=== PATIENT | male | born 1970 | race Caucasian/White ===

== ENCOUNTER 2019-09-23 08:55 | Outpatient (CLI) | payer MEDICARE, MEDICAID, SELFPAY ==
[2019-09-23 10:24] LABS: Hematocrit 40.2 % (42.0-52.0); Mean Corpuscular HGB Conc 32.3 g/dL (30.0-36.0); Mean Corpuscular Hemoglobin 31.4 pg (28.0-34.0); Mean Corpuscular Volume 97.1 fL (80-94); Platelet Count 187 10^3/cmm (130-400); Red Blood Count 4.14 10^6/uL (4.1-5.3); Red Cell Distribution Width 13.2 % (12.1-15.1); White Blood Count 8.3 10^3/uL (4.0-10.0)
[2019-09-23 10:38] LABS: Alanine Aminotransferase 34 U/L (0-41); Albumin Level 5.1 g/dL (3.5-5.2); Alkaline Phosphatase 55 IU/L (40-130); Anion Gap 15.1 (5-19); Aspartate Amino Transferase 24 U/L (0-40); Blood Urea Nitrogen 17 mg/dL (6-20); Carbon Dioxide 21 mmol/L (22-29); Chloride 106 mmol/L (98-107); Chol HDL Ratio 7.69 mg/dL (1.0-5.00); Cholesterol 269 mg/dL (0-200); Globulin 1.5 g/dL (1.3-4.6); Glomerular Filtration Rate 49.3 mL/min (90-130); Glucose 138 mg/dL (74-109); HDL Cholesterol 35 mg/dL (60-100); LDL Cholesterol Calculated 163 mg/dL (50-129); LDL HDL Ratio 4.66 RATIO (0.00-3.22); Phosphorus 2.1 mg/dL (2.5-4.5); Potassium 4.1 mmol/L (3.5-5.1); Sodium 138 mmol/L (136-145); Total Bilirubin 0.2 mg/dL (0.15-1.2); Total Protein 6.6 g/dL (6.6-8.7); Triglycerides 354 mg/dL (0-150)
[2019-09-23 11:09] LABS: Absolute Eosinophils 0.2 10^3/cmm (0.0-0.7); Absolute Segmented Neutrophil 5.6 10/cmm (1.6-7.1); Band Neutrophils Absolute 0.2 10^3/cmm (0.0-1.2); Eosinophils 3 %; Lymphocytes 10 %; Monocytes Absolute 1.3 10^3/cmm (0.1-0.6); Platelet Estimate Normal (Normal); Polychromasia Trace; Segmented Neutrophils 68 %; Total Cells Counted 100 (0-100)
[2019-09-23 11:39] LABS: Calcium 11.3 mg/Dl (8.6-10.0)
[2019-09-24 04:45] LABS: Estmated Average Glucose 140; Hemoglobin A1C 6.5 % (4.0-6.0)
== END 2019-09-23 08:56 | disposition home or self-care (01) ==
LOC: ONCMED 09:01
PROVIDERS: Visit Provider Internal Medicine Medical Oncology
DX: D59.3 Hemolytic-uremic syndrome (principal); R73.9 Hyperglycemia, unspecified; M31.1 Thrombotic microangiopathy; F17.210 Nicotine dependence, cigarettes, uncomplicated; Z94.0 Kidney transplant status
CPT/HCPCS: 80053; 80061; 80197; 83036; 84100; 85007; 85027; 96365; J1300; J7050

== ENCOUNTER 2019-10-07 10:59 | Outpatient (CLI) | payer MEDICARE, MEDICAID, SELFPAY ==
[2019-10-07 11:51] LABS: Basophils % 0.2 %; Eosinophils # 0.3 10^3/uL (0.0-0.8); Eosinophils % 3.6 %; Hematocrit 41.5 % (42.0-52.0); Hemoglobin 13.5 g/dL (11.7-16.6); Lymphocytes # 0.9 10^3/uL (0.8-4.8); Lymphocytes % 10.7 %; Mean Corpuscular HGB Conc 32.5 g/dL (30.0-36.0); Mean Corpuscular Hemoglobin 31.4 pg (28.0-34.0); Mean Corpuscular Volume 96.5 fL (80-94); Mean Platelet Volume 10.7 fL (7.4-10.4); Monocytes % 12.3 %; Neutrophils # 6.1 10^3/uL (1.8-7.7); Neutrophils % 72.7 %; Nucleated Red Blood Cells % 0 %; Platelet Count 199 10^3/cmm (130-400); Red Cell Distribution Width 12.8 % (12.1-15.1); White Blood Count 8.4 10^3/uL (4.0-10.0)
[2019-10-07 11:54] LABS: Estmated Average Glucose 134; Hemoglobin A1C 6.3 % (4.0-6.0)
[2019-10-07 11:56] LABS: Alanine Aminotransferase 44 U/L (0-41); Albumin Level 4.4 g/dL (3.5-5.2); Alkaline Phosphatase 55 IU/L (40-130); Anion Gap 14.1 (5-19); Aspartate Amino Transferase 26 U/L (0-40); Blood Urea Nitrogen 14 mg/dL (6-20); Carbon Dioxide 25 mmol/L (22-29); Chloride 103 mmol/L (98-107); Globulin 2.5 g/dL (1.3-4.6); Glomerular Filtration Rate 58.2 mL/min (90-130); Glucose 126 mg/dL (74-109); Lactate Dehydrogenase 167 U/L (135-225); Potassium 4.1 mmol/L (3.5-5.1); Sodium 138 mmol/L (136-145); Total Bilirubin 0.3 mg/dL (0.15-1.2); Total Protein 6.9 g/dL (6.6-8.7)
[2019-10-07] MEDS: sodium chloride 0.9% 100 ML 75 ML (14:15)
--- NOTE | 2019-10-10 19:54 | ONC FU_ITS ---
Dr. Cunha Patient Follow-Up Note Patient: Thomas Salcedo Unit #: [id number]: 1970 Dicatated By: Herman Cunha M.D.Date of Visit:Oct 07, 2019 Onc Med Follow-up/Prog Note Chief Complaint: Thrombotic microangiopathy. 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 He had presented in November 2009 with acute renal failure. Renal biopsy was consistent with thrombotic microangiopathy. He was treated initially with plasmapheresis, but apparently without response. He started hemodialysis in December 2009. It had been administered via a left arm AV fistula, which was placed sometime in 2010. He has been followed by the renal transplant service at [facility]. Review of the renal biopsy by their pathologists in February 2015 was confirmatory for thrombotic microangiopathy. On 05/05/2016 he underwent renal transplantation. He tolerated the procedure well, and he is dialysis independent. He subsequently began a course of treatment with eculizumab for the thrombotic microangiopathy. He received his initial infusion on 05/07/2016. He completed his 4th weekly infusion of eculizumab at the 900 mg dosage on 05/29/2016. As of 06/05/2016 the dosage was increased to 1200 mg, and the infusion interval was increased to 2 weeks. Thus far he has tolerated the treatment well. His medical illnesses include hypertension and anemia. He also now has started treatment for type II diabetes. He has a history of smoking one half pack of cigarettes daily. INTERIM HISTORY: During follow-up he has continued to tolerate his treatment well, and he has remained stable clinically. In June 2018 he had developed fever and he had a decline in his renal function. His treatment was put on hold, and he returned to [facility] for further evaluation. A specific cause was not determined, but his symptoms and renal function improved, and he was able to resume treatment with eculizumab. He is seen for a scheduled visit. He has been feeling pretty good generally. He says his energy could be better. He is still doing light work. His ECOG score is 1. His appetite is good. He has no fever or night sweats. He has occasional cough. He has no shortness of breath or chest pain. He has no GI or complaints. He does have some joint pain, mainly in the knees and ankles. He occasionally has headache. He has no focal neurologic symptoms. He bruises easily. He has no other bleeding manifestations. Medications: Aspirin 1 (81 mg) Tablet Oral daily, Cholecalciferol 1 (2000 Units) Capsule Oral daily, CloNIDine HCl 1 (0.2 mg) Tablet Oral daily, Envarsus XR 3 Tablet (of 4 mg) Tablet SR 24 HR Oral daily, HydrALAZINE HCl 1 (100 mg) Tablet Oral b.i.d., Januvia 1 (50 mg) Tablet Oral b.i.d. PRN, Lipitor 1 (40 mg) Tablet Oral daily, Myfortic 2 (360 mg) Tablet, enteric coated Oral b.i.d., Norvasc 1 (10 mg) Tablet Oral daily, PredniSONE 1 (5 mg) Tablet Oral daily Allergies: No Known Allergies. Review of Systems: Constitutional - He feels good and his energy is pretty good. He does light work at home. His appetite is good and his weight is stable. No fever, chills, hot flashes, or night sweats. ECOG score is 1, ENMT - No sinus congestion/drainage. No mouth sores. No sore throat or difficulty swallowing, Hematologic/Lymphatic - No abnormal bruising or bleeding, Respiratory - No shortness of breath. He has an occasional cough. No pleuritic pain or hemoptysis, Cardiovascular - No angina pain. No palpitations, Gastrointestinal - No nausea or vomiting. No heartburn or acid reflux. No diarrhea or constipation. No blood in the stool or black stools, Genitourinary (M) - No dysuria or hematuria. No urinary frequency. No urgency or incontinence, Musculoskeletal - He has arthritis in his knees and ankles, Integumentary - No skin complications, Neurologic - He has occasional headaches. No dizziness. No numbness/paresthesias or other focal neurologic symptoms, Psychiatric - No anxiety or depression. No insomnia. Vital Signs: Performed on Oct 07, 2019 12:50 Height - 71.00 in Weight - 220.0 lbs (HIGH) BSA - 2.20 sq.m BMI - 30.68 (HIGH) Temperature - 98.1 F (LOW) Pulse - 70 /min Respiration - 18 /min BP - 117/64 mm(hg) O2 Sat - 92 % (LOW) Pain - 0 Physical Examination: Constitutional - He looks pretty good generally, Eyes - Sclerae nonicteric. Conjunctivae clear, ENMT - No lesions noted in the oral cavity, Hematologic/Lymphatic - No cervical, clavicular, or axillary adenopathy, Respiratory - Lungs sound clear, Cardiovascular - Heart rhythm is regular. There is no murmur, gallop, or rub noted, Abdomen - Soft. Liver and spleen are not enlarged. There is no abdominal mass or ascites noted and there is no inguinal adenopathy, Extremities - There is slight swelling at the right ankle. There is otherwise no edema, Neurologic - No focal neurologic deficits noted. Lab/Imaging: Test performed on Oct 07, 2019 12:50 Glucose 126 mg/dL BUN 14 mg/dL Creatinine 1.3 mg/dL Cr Clearance (Est) 94.89 mL/min Sodium 138 mmol/L Potassium 4.1 mmol/L Chloride 103 mmol/L CO2 25 mmol/L Calcium 11 mg/dL Protein, Total 6.9 g/dL Albumin 4.4 g/dL Globulin 2.5 g/dL Bilirubin, Total 0.3 mg/dL Alkaline Phosphatase 55 IU/L AST (SGOT) 26 IU/L ALT (SGPT) 44 IU/L WBC 8.4 10^9/L RBC 4.30 10^12/L HGB 13.5 g/dL HCT 41.5 % MCV 96.5 fl MCH 31.4 pg MCHC 32.5 g/dL RDW 12.8 % Platelet Count 199 10^9/L MPV 10.7 fL Neutrophils (Gran) 6.1 10^9/L Lymphocytes 0.9 10^9/L Monocytes 1.0 10^9/L Eosinophils 0.3 10^9/L Basophils 0 10^9/L Manual Lymphocytes 10.7 % Manual Monocytes 12.3 % Manual Eosinophils 3.6 % Manual Basophils 0.2 % NRBCs 0 /100 WBC Test performed on Oct 07, 2019 11:20 Hemoglobin A1C 6.3 % Test performed on Sep 23, 2019 14:26 Cholesterol, Total 269 mg/dL Phosphorous 2.1 mg/dL HDL Cholesterol 35 mg/dL LDL Cholesterol 163 mg/dL BUN/Creatinine Ratio 269 Absolute Value Triglycerides 354 mg/dL Manual Segs 68 % Manual Bands 3 % Platelet Estimate normal Pathology Comments trace polychromasia Impression: 1. Patient with thrombotic microangiopathy (aHUS). 2. He developed end-stage renal disease secondary to above. 3. He underwent renal transplant on 05/05/2016. 4. He began a course of treatment with eculizumab on 05/07/2016. 5. 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 His other medical illnesses include: 6. Hypertension. 7. Type II diabetes. 8. Nicotine dependence (cigarettes). As of 05/29/2016 had had completed 4 weekly infusions of eculizumab at the 900 mg dosage. At week 5 the dosage was increased to 1200 mg, and the treatment interval was then increased to 2 weeks. He has since then continued to tolerate treatment well. On 06/24/2018 he presented with fever and a decline in renal function. His treatment was put on hold, and he had further evaluation at [facility]. A specific cause for the illness was not determined, but his symptoms and renal function improved. He was able to restart treatment with eculizumab at the same dosage. During treatment he had developed some lower extremity edema which was worse on the right. There was no evidence of deep vein thrombosis, and the swelling gradually improved. During follow-up there has been some variability in his renal function, but it has remained adequate, and he has otherwise been stable clinically. He continues to tolerate his treatment well. Plan: He will continue treatment with eculizumab at 1200mg by IV infusion every 2 weeks. He will be due for follow-up at [facility] again in November 2019. He will be scheduled for a follow-up visit here in 3 months. In the meantime, his laboratory studies will be monitored monthly. Signed By: Herman Cunha M.D. <<Signature on File>>
== END 2019-10-07 11:00 | disposition home or self-care (01) ==
LOC: ONCMED 10:59
PROVIDERS: PCP Nurse Practitioner Family; Visit Provider Internal Medicine Medical Oncology
DX: D59.3 Hemolytic-uremic syndrome (principal); I10 Essential (primary) hypertension; E11.9 Type 2 diabetes mellitus without complications; D64.9 Anemia, unspecified; F17.210 Nicotine dependence, cigarettes, uncomplicated; Z79.82 Long term (current) use of aspirin; Z79.52 Long term (current) use of systemic steroids; Z94.0 Kidney transplant status
CPT/HCPCS: 80053; 80197; 83036; 83615; 85025; 96365; 99214; J1300; J7050

== ENCOUNTER 2019-10-21 09:19 | Outpatient (CLI) | payer MEDICARE, MEDICAID, SELFPAY ==
[2019-10-21] MEDS: sodium chloride 0.9% 100 ML 400 ML (09:57)
== END 2019-10-21 09:20 | disposition home or self-care (01) ==
LOC: ONCMED 09:23
PROVIDERS: PCP Nurse Practitioner Family; Visit Provider Internal Medicine Medical Oncology
DX: D59.3 Hemolytic-uremic syndrome (principal)
CPT/HCPCS: 96365; J1300; J7050

== ENCOUNTER 2019-11-04 09:24 | Outpatient (CLI) | payer MEDICARE, MEDICAID, SELFPAY ==
[2019-11-04 10:06] LABS: Basophils % 0.2 %; Eosinophils # 0.2 10^3/uL (0.0-0.8); Eosinophils % 2.6 %; Hematocrit 39.7 % (42.0-52.0); Lymphocytes # 1.2 10^3/uL (0.8-4.8); Lymphocytes % 13.8 %; Mean Corpuscular HGB Conc 32.7 g/dL (30.0-36.0); Mean Corpuscular Hemoglobin 30.4 pg (28.0-34.0); Mean Corpuscular Volume 92.8 fL (80-94); Mean Platelet Volume 10.8 fL (7.4-10.4); Monocytes # 1.1 10^3/uL (0.2-0.9); Neutrophils # 6.3 10^3/uL (1.8-7.7); Neutrophils % 71.1 %; Nucleated Red Blood Cells % 0 %; Platelet Count 201 10^3/cmm (130-400); Red Blood Count 4.28 10^6/uL (4.1-5.3); Red Cell Distribution Width 12.7 % (12.1-15.1); White Blood Count 8.9 10^3/uL (4.0-10.0)
[2019-11-04] MEDS: sodium chloride 0.9% 250 ML 75 ML IV (10:11)
[2019-11-04 10:30] LABS: Alanine Aminotransferase 32 U/L (0-41); Albumin Level 4.4 g/dL (3.5-5.2); Alkaline Phosphatase 51 IU/L (40-130); Anion Gap 14.9 (5-19); Aspartate Amino Transferase 23 U/L (0-40); Blood Urea Nitrogen 17 mg/dL (6-20); Calcium 10.7 mg/dL (8.5-10.5); Carbon Dioxide 23 mmol/L (22-29); Chloride 103 mmol/L (98-107); Cholesterol 259 mg/dL (0-200); Globulin 2.5 g/dL (1.3-4.6); Glomerular Filtration Rate 49.3 mL/min (90-130); Glucose 115 mg/dL (65-115); HDL Cholesterol 35 mg/dL (60-100); LDL Cholesterol Calculated 175 mg/dL (50-129); Phosphorus 2.7 mg/dL (2.5-4.5); Potassium 3.9 mmol/L (3.5-5.1); Sodium 137 mmol/L (136-145); Total Bilirubin 0.2 mg/dL (0.15-1.2); Total Protein 6.9 g/dL (6.6-8.7); Triglycerides 245 mg/dL (0-150)
== END 2019-11-04 09:25 | disposition home or self-care (01) ==
LOC: ONCMED 09:24
PROVIDERS: PCP Nurse Practitioner Family; Visit Provider Internal Medicine Medical Oncology
DX: D59.3 Hemolytic-uremic syndrome (principal)
CPT/HCPCS: 80053; 80061; 80197; 84100; 85025; 96365; J1300; J7050

== ENCOUNTER 2019-11-18 09:36 | Outpatient (CLI) | payer MEDICARE, MEDICAID, SELFPAY ==
[2019-11-18] MEDS: sodium chloride 0.9% 250 ML 75 ML IV (10:17)
== END 2019-11-18 09:37 | disposition home or self-care (01) ==
LOC: ONCMED 09:38
PROVIDERS: PCP Nurse Practitioner Family; Visit Provider Internal Medicine Medical Oncology
DX: D59.3 Hemolytic-uremic syndrome (principal)
CPT/HCPCS: 96365; J1300; J7050

== ENCOUNTER 2019-12-02 09:30 | Outpatient (CLI) | payer MEDICARE, MEDICAID, SELFPAY ==
[2019-12-02] MEDS: sodium chloride 0.9% 100 ML 25 ML (09:50)
[2019-12-02] MEDS: sodium chloride 0.9% 250 ML 411 ML IV (10:25)
[2019-12-02] MEDS: sodium chloride 0.9% 100 ML 411 ML (11:00)
[2019-12-02 12:30] LABS: Basophils % 0.4 %; Eosinophils # 0.3 10^3/uL (0.0-0.8); Eosinophils % 4.9 %; Hematocrit 40.4 % (42.0-52.0); Hemoglobin 12.9 g/dL (11.7-16.6); Lymphocytes # 1.1 10^3/uL (0.8-4.8); Lymphocytes % 15.8 %; Mean Corpuscular HGB Conc 31.9 g/dL (30.0-36.0); Mean Corpuscular Hemoglobin 30.1 pg (28.0-34.0); Mean Corpuscular Volume 94.2 fL (80-94); Mean Platelet Volume 11.6 fL (7.4-10.4); Monocytes # 0.9 10^3/uL (0.2-0.9); Monocytes % 13.5 %; Neutrophils # 4.4 10^3/uL (1.8-7.7); Nucleated Red Blood Cells % 0 %; Platelet Count 192 10^3/cmm (130-400); Red Blood Count 4.29 10^6/uL (4.1-5.3); Red Cell Distribution Width 12.9 % (12.1-15.1); White Blood Count 6.7 10^3/uL (4.0-10.0)
[2019-12-02 12:45] LABS: Albumin Level 4.1 g/dL (3.5-5.2); Anion Gap 13.1 (5-19); Blood Urea Nitrogen 13 mg/dL (6-20); Calcium 10.9 mg/dL (8.5-10.5); Carbon Dioxide 24 mmol/L (22-29); Chloride 104 mmol/L (98-107); Glomerular Filtration Rate 58.2 mL/min (90-130); Glucose 146 mg/dL (65-115); Phosphorus 2.6 mg/dL (2.5-4.5); Potassium 4.1 mmol/L (3.5-5.1); Sodium 137 mmol/L (136-145)
== END 2019-12-02 09:31 | disposition home or self-care (01) ==
PROVIDERS: PCP Nurse Practitioner Family; Visit Provider Internal Medicine Medical Oncology
DX: D59.3 Hemolytic-uremic syndrome (principal)
CPT/HCPCS: 80069; 80197; 85025; 96365; J1300; J7050

== ENCOUNTER 2019-12-16 10:30 | Outpatient (CLI) | payer MEDICARE, MEDICAID, SELFPAY ==
[2019-12-16] MEDS: sodium chloride 0.9% 250 ML 75 ML IV (11:29)
[2019-12-16 11:43] LABS: Hematocrit 39.7 % (42.0-52.0); Hemoglobin 12.9 g/dL (11.7-16.6); Mean Corpuscular HGB Conc 32.5 g/dL (30.0-36.0); Mean Corpuscular Hemoglobin 30.7 pg (28.0-34.0); Mean Corpuscular Volume 94.5 fL (80-94); Platelet Count 189 10^3/cmm (130-400); Red Cell Distribution Width 12.9 % (12.1-15.1); White Blood Count 7.8 10^3/uL (4.0-10.0)
[2019-12-16 12:27] LABS: Albumin Level 4.2 g/dL (3.5-5.2); Anion Gap 17.1 (5-19); Blood Urea Nitrogen 14 mg/dL (6-20); Calcium 10.5 mg/dL (8.5-10.5); Carbon Dioxide 21 mmol/L (22-29); Chloride 101 mmol/L (98-107); Glomerular Filtration Rate 45.8 mL/min (90-130); Glucose 121 mg/dL (65-115); Phosphorus 2.2 mg/dL (2.5-4.5); Potassium 4.1 mmol/L (3.5-5.1); Sodium 135 mmol/L (136-145)
[2019-12-16 12:42] LABS: Absolute Eosinophils 0.3 10^3/cmm (0.0-0.7); Absolute Segmented Neutrophil 5.3 10/cmm (1.6-7.1); Band Neutrophils Absolute 0.3 10^3/cmm (0.0-1.2); Eosinophils 4 %; Lymphocytes 10 %; Lymphocytes Absolute 0.9 10^3/cmm (1.2-3.4); Monocytes Absolute 0.9 10^3/cmm (0.1-0.6); Segmented Neutrophils 69 %; Total Cells Counted 100 (0-100)
[2019-12-16 12:43] LABS: Hypochromasia Trace; Platelet Estimate Normal (Normal)
== END 2019-12-16 10:31 | disposition home or self-care (01) ==
LOC: ONCMED 10:30
PROVIDERS: PCP Nurse Practitioner Family; Visit Provider Internal Medicine Medical Oncology
DX: D59.3 Hemolytic-uremic syndrome (principal); I10 Essential (primary) hypertension; E11.9 Type 2 diabetes mellitus without complications; F17.210 Nicotine dependence, cigarettes, uncomplicated; Z94.0 Kidney transplant status; D89.9 Disorder involving the immune mechanism, unspecified; E78.5 Hyperlipidemia, unspecified; E11.65 Type 2 diabetes mellitus with hyperglycemia
CPT/HCPCS: 80069; 85007; 85027; 96365; 96366; J1303; J7040; J7050

== ENCOUNTER 2019-12-29 06:30 | Outpatient (CLI) | payer MEDICARE, MEDICAID, SELFPAY ==
[2019-12-29 12:01] LABS: Basophils % 0.3 %; Eosinophils # 0.2 10^3/uL (0.0-0.8); Eosinophils % 2.2 %; Hematocrit 42.6 % (42.0-52.0); Hemoglobin 13.4 g/dL (11.7-16.6); Lymphocytes # 1.4 10^3/uL (0.8-4.8); Lymphocytes % 12.6 %; Mean Corpuscular HGB Conc 31.5 g/dL (30.0-36.0); Mean Corpuscular Hemoglobin 30.9 pg (28.0-34.0); Mean Corpuscular Volume 98.2 fL (80-94); Mean Platelet Volume 11.2 fL (7.4-10.4); Monocytes # 1.3 10^3/uL (0.2-0.9); Monocytes % 11.9 %; Neutrophils % 72.5 %; Nucleated Red Blood Cells % 0 %; Platelet Count 207 10^3/cmm (130-400); Red Blood Count 4.34 10^6/uL (4.1-5.3); Red Cell Distribution Width 13.2 % (12.1-15.1); White Blood Count 11.1 10^3/uL (4.0-10.0)
[2019-12-29 12:22] LABS: Alanine Aminotransferase 31 U/L (0-41); Albumin Level 4.7 g/dL (3.5-5.2); Alkaline Phosphatase 61 IU/L (40-130); Anion Gap 19.3 (5-19); Aspartate Amino Transferase 23 U/L (0-40); Blood Urea Nitrogen 16 mg/dL (6-20); Calcium 11.5 mg/dL (8.5-10.5); Carbon Dioxide 22 mmol/L (22-29); Chloride 103 mmol/L (98-107); Chol HDL Ratio 4.56 mg/dL (1.0-5.00); Cholesterol 205 mg/dL (0-200); Globulin 2.8 g/dL (1.3-4.6); Glomerular Filtration Rate 45.8 mL/min (90-130); Glucose 122 mg/dL (65-115); HDL Cholesterol 45 mg/dL (60-100); LDL Cholesterol Calculated 106 mg/dL (50-129); LDL HDL Ratio 2.36 RATIO (0.00-3.22); Osmolality Calculated 288 mOsm/kg (285-295); Potassium 4.3 mmol/L (3.5-5.1); Sodium 140 mmol/L (136-145); Total Bilirubin 0.2 mg/dL (0.15-1.2); Total Protein 7.5 g/dL (6.6-8.7); Triglycerides 269 mg/dL (0-150)
[2019-12-29 12:54] LABS: Estmated Average Glucose 140; Hemoglobin A1C 6.5 % (4.0-6.0)
== END 2019-12-29 06:31 | disposition home or self-care (01) ==
LOC: ONCMED 14:13
PROVIDERS: PCP Nurse Practitioner Family; Visit Provider Internal Medicine Medical Oncology
DX: D59.3 Hemolytic-uremic syndrome (principal); E11.9 Type 2 diabetes mellitus without complications
CPT/HCPCS: 36415; 80053; 80061; 83036; 85025

== ENCOUNTER 2019-12-30 09:22 | Outpatient (CLI) | payer MEDICARE, MEDICAID, SELFPAY ==
[2019-12-30] MEDS: sodium chloride 0.9% 100 ML 30 ML (10:55)
[2019-12-30] MEDS: sodium chloride 0.9% 250 ML 330 ML IV (11:18)
--- NOTE | 2019-12-30 12:06 | ONC FU_ITS ---
Dr. Cunha Patient Follow-Up Note Patient: Thomas Salcedo Unit #: [id number]: 1970 Dicatated By: Herman Cunha M.D.Date of Visit:Dec 30, 2019 Onc Med Follow-up/Prog Note Chief Complaint: Thrombotic microangiopathy. 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 He had presented in November 2009 with acute renal failure. Renal biopsy was consistent with thrombotic microangiopathy. He was treated initially with plasmapheresis, but apparently without response. He started hemodialysis in December 2009. It had been administered via a left arm AV fistula, which was placed sometime in 2010. He has been followed by the renal transplant service at [facility]. Review of the renal biopsy by their pathologists in February 2015 was confirmatory for thrombotic microangiopathy. On 05/05/2016 he underwent renal transplantation. He tolerated the procedure well, and he is dialysis independent. He subsequently began a course of treatment with eculizumab for the thrombotic microangiopathy. He received his initial infusion on 05/07/2016. He completed his 4th weekly infusion of eculizumab at the 900 mg dosage on 05/29/2016. As of 06/05/2016 the dosage was increased to 1200 mg, and the infusion interval was increased to 2 weeks. During follow-up he continued to tolerate his treatment well, and he remained stable clinically. In June 2018 he had developed fever and he had a decline in his renal function. His treatment was put on hold, and he returned to [facility] for further evaluation. A specific cause was not determined, but his symptoms and renal function improved, and he was able to resume treatment with eculizumab. His medical illnesses include hypertension and anemia. He also now has started treatment for type II diabetes. He has a history of smoking one half pack of cigarettes daily. INTERIM HISTORY: He has continued his eculizumab infusions every 2 weeks, and he has continued to tolerate the treatment well. During follow-up there have been fluctuations in his creatinine and in his calcium level, but he has remained stable clinically. As of 12/16/2019 his treatment was transitioned to ravulizumab. He is seen for a scheduled visit. He tolerated his initial infusion of ravulizumab without difficulty. He has been feeling fine. His energy is fair. His ECOG score is 1. He has good appetite. He has no fever or night sweats. He is not had sore mouth or throat. He does not complain of cough, shortness of breath, or chest pain. He has no GI/ complaints other than occasional heartburn. He has some joint pain intermittently. He does not complain of headache or dizziness. He has no focal neurologic symptoms. Medications: Aspirin 1 (81 mg) Tablet Oral daily, CloNIDine HCl 1 (0.2 mg) Tablet Oral daily, Envarsus XR 3 Tablet (of 4 mg) Tablet SR 24 HR Oral daily, HydrALAZINE HCl 1 (100 mg) Tablet Oral b.i.d., Januvia 1 Tablet (of 50 mg) Oral daily PRN, Lipitor 1 (40 mg) Tablet Oral daily, Myfortic 2 (360 mg) Tablet, enteric coated Oral b.i.d., Norvasc 1 (10 mg) Tablet Oral daily, PredniSONE 1 (5 mg) Tablet Oral daily Allergies: No Known Allergies. Review of Systems: Constitutional - He generally feels good. He does some light housework. His appetite is good and weight is stable. No fever, chills, hot flashes, or night sweats. ECOG score is 1, ENMT - He has seasonal allergies. No mouth sores. No sore throat or difficulty swallowing, Hematologic/Lymphatic - No abnormal bruising or bleeding, Respiratory - No shortness of breath. No cough. No pleuritic pain or hemoptysis, Cardiovascular - No angina pain. No palpitations, Gastrointestinal - No nausea or vomiting. He has occasional heartburn. No diarrhea or constipation. No blood in the stool or black stools, Genitourinary (M) - No dysuria or hematuria. No urinary frequency. No urgency or incontinence, Musculoskeletal - He has intermittent joint pain, Integumentary - No skin complications, Neurologic - No headache or dizziness. No numbness/paresthesias or other focal neurologic symptoms, Psychiatric - No anxiety or depression. No insomnia. Vital Signs: Performed on Dec 30, 2019 09:25 Height - 71.00 in Weight - 222.2 lbs (HIGH) BSA - 2.21 sq.m BMI - 30.99 (HIGH) Temperature - 98.6 F Pulse - 82 /min Respiration - 20 /min BP - 156/78 mm(hg) (HIGH) O2 Sat - 95 % (LOW) Pain - 0 Physical Examination: Constitutional - He looks pretty good generally, Eyes - Sclerae nonicteric. Conjunctivae clear, ENMT - No lesions noted in the oral cavity, Hematologic/Lymphatic - No cervical, clavicular, or axillary adenopathy, Respiratory - Lungs sound clear, Cardiovascular - Heart rhythm is regular. There is a II/ systolic murmur. There is no gallop or rub noted, Abdomen - Soft. Liver and spleen are not enlarged. There is no abdominal mass or ascites noted and there is no inguinal adenopathy, Extremities - No edema, Neurologic - No focal neurologic deficits noted. Lab/Imaging: CBC shows hemoglobin 13.4 g, white blood cell count 11,100, and platelet count 207,000. Comprehensive metabolic profile shows stable renal function with BUN 16 and creatinine 1.6 mg/dL. Calcium is slightly elevated at 11.5 mg/dL. Liver enzymes are normal. Impression: 1. Patient with thrombotic microangiopathy (aHUS). 2. He developed end-stage renal disease secondary to above. 3. He underwent renal transplant on 05/05/2016. 4. He began a course of treatment with eculizumab on 05/07/2016. 5. 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 His other medical illnesses include: 6. Hypertension. 7. Type II diabetes. 8. Nicotine dependence (cigarettes). As of 05/29/2016 had had completed 4 weekly infusions of eculizumab at the 900 mg dosage. At week 5 the dosage was increased to 1200 mg, and the treatment interval was then increased to 2 weeks. He has since then continued to tolerate treatment well. On 06/24/2018 he presented with fever and a decline in renal function. His treatment was put on hold, and he had further evaluation at [facility]. A specific cause for the illness was not determined, but his symptoms and renal function improved. He was able to restart treatment with eculizumab at the same dosage. During treatment he had developed some lower extremity edema which was worse on the right. There was no evidence of deep vein thrombosis, and the swelling gradually improved. During follow-up there has been some fluctuation in his renal function and in his serum calcium level, but he has otherwise been stable clinically. As of 12/16/2019 his treatment was transitioned to ravulizumab. He tolerated the initial infusion with no adverse effects. Plan: He completed his initial loading dose and he will now continue treatment with ravulizumab 3600 mg by IV infusion every 8 weeks. We will have a 4-week interval lab check. Signed By: Herman Cunha M.D. <<Signature on File>>
== END 2019-12-30 09:23 | disposition home or self-care (01) ==
LOC: ONCMED 09:23
PROVIDERS: PCP Nurse Practitioner Family; Visit Provider Internal Medicine Medical Oncology
DX: D59.3 Hemolytic-uremic syndrome (principal); D63.8 Anemia in other chronic diseases classified elsewhere; M31.1 Thrombotic microangiopathy; I10 Essential (primary) hypertension; E11.9 Type 2 diabetes mellitus without complications; F17.210 Nicotine dependence, cigarettes, uncomplicated; Z94.0 Kidney transplant status; Z79.82 Long term (current) use of aspirin; Z79.899 Other long term (current) drug therapy; Z79.52 Long term (current) use of systemic steroids
CPT/HCPCS: 96365; 96366; 99214; J1303; J7040; J7050

== ENCOUNTER 2020-01-27 06:40 | Outpatient (CLI) | payer MEDICARE, MEDICAID, SELFPAY ==
[2020-01-27 11:00] LABS: Basophils % 0.4 %; Eosinophils # 0.3 10^3/uL (0.0-0.8); Hematocrit 42.1 % (42.0-52.0); Hemoglobin 13.8 g/dL (11.7-16.6); Lymphocytes # 1.4 10^3/uL (0.8-4.8); Mean Corpuscular HGB Conc 32.8 g/dL (30.0-36.0); Mean Corpuscular Hemoglobin 31.6 pg (28.0-34.0); Mean Corpuscular Volume 96.3 fL (80-94); Mean Platelet Volume 11.4 fL (7.4-10.4); Monocytes # 1.1 10^3/uL (0.2-0.9); Monocytes % 11.1 %; Neutrophils # 7.2 10^3/uL (1.8-7.7); Nucleated Red Blood Cells % 0 %; Platelet Count 207 10^3/cmm (130-400); Red Blood Count 4.37 10^6/uL (4.1-5.3); Red Cell Distribution Width 12.8 % (12.1-15.1); White Blood Count 10.2 10^3/uL (4.0-10.0)
[2020-01-27 11:15] LABS: Alanine Aminotransferase 45 U/L (0-41); Albumin Level 4.6 g/dL (3.5-5.2); Alkaline Phosphatase 57 IU/L (40-130); Anion Gap 17.3 (5-19); Aspartate Amino Transferase 28 U/L (0-40); Blood Urea Nitrogen 19 mg/dL (6-20); Calcium 11.5 mg/dL (8.5-10.5); Carbon Dioxide 24 mmol/L (22-29); Chloride 100 mmol/L (98-107); Globulin 2.8 g/dL (1.3-4.6); Glomerular Filtration Rate 53.4 mL/min (90-130); Glucose 127 mg/dL (65-115); Lactate Dehydrogenase 211 U/L (135-225); Osmolality Calculated 282 mOsm/kg (285-295); Potassium 4.3 mmol/L (3.5-5.1); Sodium 137 mmol/L (136-145); Total Bilirubin 0.2 mg/dL (0.15-1.2); Total Protein 7.4 g/dL (6.6-8.7)
== END 2020-01-27 06:41 | disposition home or self-care (01) ==
LOC: ONCMED 01-31 16:17
PROVIDERS: PCP Nurse Practitioner Family; Visit Provider Internal Medicine Medical Oncology
DX: D59.3 Hemolytic-uremic syndrome (principal)
CPT/HCPCS: 80053; 83615; 85025

== ENCOUNTER 2020-02-24 06:00 | Outpatient (CLI) | payer MEDICARE, MEDICAID, SELFPAY ==
[2020-02-24 09:17] LABS: Basophils % 0.4 %; Eosinophils # 0.3 10^3/uL (0.0-0.8); Eosinophils % 2.8 %; Hemoglobin 13.1 g/dL (11.7-16.6); Lymphocytes # 1.5 10^3/uL (0.8-4.8); Lymphocytes % 15.2 %; Mean Corpuscular Hemoglobin 30.3 pg (28.0-34.0); Mean Corpuscular Volume 94.9 fL (80-94); Mean Platelet Volume 10.9 fL (7.4-10.4); Monocytes # 1.1 10^3/uL (0.2-0.9); Monocytes % 11.1 %; Neutrophils # 6.8 10^3/uL (1.8-7.7); Neutrophils % 70.1 %; Nucleated Red Blood Cells % 0 %; Platelet Count 196 10^3/cmm (130-400); Red Blood Count 4.32 10^6/uL (4.1-5.3); Red Cell Distribution Width 12.5 % (12.1-15.1); White Blood Count 9.6 10^3/uL (4.0-10.0)
[2020-02-24 09:38] LABS: Alanine Aminotransferase 40 U/L (0-41); Albumin Level 4.5 g/dL (3.5-5.2); Alkaline Phosphatase 55 IU/L (40-130); Anion Gap 15.2 (5-19); Aspartate Amino Transferase 26 U/L (0-40); Blood Urea Nitrogen 17 mg/dL (6-20); Calcium 11.1 mg/dL (8.5-10.5); Carbon Dioxide 23 mmol/L (22-29); Chloride 103 mmol/L (98-107); Globulin 2.1 g/dL (1.3-4.6); Glomerular Filtration Rate 53.4 mL/min (90-130); Glucose 131 mg/dL (65-115); Lactate Dehydrogenase 189 U/L (135-225); Osmolality Calculated 282 mOsm/kg (285-295); Potassium 4.2 mmol/L (3.5-5.1); Sodium 137 mmol/L (136-145); Total Bilirubin 0.2 mg/dL (0.15-1.2); Total Protein 6.6 g/dL (6.6-8.7)
--- NOTE | 2020-02-28 09:04 | ONC FU_ITS ---
[facility] Patient Note Patient: Thomas Salcedo Unit #: [id number]: 1970 Dictated By: Mayra DiazDate of Visit: Feb 24, 2020 Onc MED Follow-Up/Prog Note Chief Complaint: Thrombotic microangiopathy. 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 He had presented in November 2009 with acute renal failure. Renal biopsy was consistent with thrombotic microangiopathy. He was treated initially with plasmapheresis, but apparently without response. He started hemodialysis in December 2009. It had been administered via a left arm AV fistula, which was placed sometime in 2010. He has been followed by the renal transplant service at [facility]. Review of the renal biopsy by their pathologists in February 2015 was confirmatory for thrombotic microangiopathy. On 05/05/2016 he underwent renal transplantation. He tolerated the procedure well, and he is dialysis independent. He subsequently began a course of treatment with eculizumab for the thrombotic microangiopathy. He received his initial infusion on 05/07/2016. He completed his 4th weekly infusion of eculizumab at the 900 mg dosage on 05/29/2016. As of 06/05/2016 the dosage was increased to 1200 mg, and the infusion interval was increased to 2 weeks. During follow-up he continued to tolerate his treatment well, and he remained stable clinically. In June 2018 he had developed fever and he had a decline in his renal function. His treatment was put on hold, and he returned to [facility] for further evaluation. A specific cause was not determined, but his symptoms and renal function improved, and he was able to resume treatment with eculizumab. His medical illnesses include hypertension and anemia. He also now has started treatment for type II diabetes. He has a history of smoking one half pack of cigarettes daily. INTERIM HISTORY: He has continued his eculizumab infusions every 2 weeks, and he has continued to tolerate the treatment well. During follow-up there have been fluctuations in his creatinine and in his calcium level, but he has remained stable clinically. As of 12/16/2019 his treatment was transitioned to ravulizumab. He has tolerated it well. Mr Salcedo is here today for followup. He continues with the ravulizumab every 8 weeks and is tolerating it well. He has no new concerns today. He states since his last visit here, he has had 1 nose bleed. It lasted for several minutes but then resolved on its own. He has had no recurrence. He denies any fever, chills or signs of infection. He denies any pain. He states his breathing is the same as always-no worse. He denies cough. He states his bowels and bladder have been normal for him. He denies any neuropathy symptoms. His energy is fair and appetite is good. His ECOG is 1. Past Medical History: Anemia Chronic kidney disease Hypertension Thrombotic microangiopathy (HUS) with end-stage renal diseas Past Surgical History: Placement of av fistula in left arm for dialysis Flu vaccine in 2019 Pneumonia vaccine in 2019 Flu Vaccine in 2018 - Given in right deltoid./lc Right ear tube placement in 2018 Flucevax in 2017 - right deltoid Renal transplant in 2016 Meningocococcal vaccine (Sandoval) in 2016 Meningocococcal vaccine in 2016 Allergies: No Known Allergies. Medications: Aspirin 1 (81 mg) Tablet Oral daily CloNIDine HCl 1 (0.2 mg) Tablet Oral daily Envarsus XR 3 Tablet (of 4 mg) Tablet SR 24 HR Oral daily HydrALAZINE HCl 1 (100 mg) Tablet Oral b.i.d. Januvia 1 Tablet (of 50 mg) Oral daily PRN Lipitor 1 (40 mg) Tablet Oral daily Myfortic 2 (360 mg) Tablet, enteric coated Oral b.i.d. Norvasc 1 (10 mg) Tablet Oral daily PredniSONE 1 (5 mg) Tablet Oral daily Family History: Mr. Salcedo's mother at age 61: stroke, and heart attack, and diabetes. Mr. Salcedo has 3 brothers: 3 alive. He has 1 sister who is alive. He doesn't know about his father. Mother had diabetes, heart attack, and stroke. She at age 61. One brother has hypertension and another brother has diabetes. Social History: Mr. Salcedo is and he is a disabled. He is a daily smoker who has smoked 0.5 packs/day for 30 years. He has no history of drinking. Mr. Salcedo reports the following support systems: lives with spouse, significant other, family, or friends, lives in own house, and supportive family/friends willing to assist with needs. His diet consists of regular meals. He indicates his activity level as: daily activities and light exercise. He has a history of smoking 1/2 pack of cigarettes daily for 30 years. He had some weekend alcohol use while he was in his 20s. He has had no alcohol use since then. Review Of Symptoms: Constitutional Denies fevers, chills, night sweats, excessive fatigue or weight loss. Allergic/Immunologic No reactions. Eyes Denies significant visual changes. ENMT Denies changes in hearing, sore throat, mouth sores, difficulty or changes in swallowing ability, and/or sinus drainage. 1 episode of nose bleed that lasted a few minutes and resolved on its own. Endocrine Denies hot flashes or night sweats. Hematologic/Lymphatic Denies easy bruising or bleeding. The patient denies any tender or palpable lymph nodes. Respiratory Denies dyspnea on exertion, chest pain, has occasional nonproductive cough. Cardiovascular Denies anginal chest pain. Gastrointestinal Denies nausea, vomiting, diarrhea, heartburn, or constipation. Genitourinary (M) Denies hematuria, dysuria, increased frequency, urgency, hesitancy or incontinence. Musculoskeletal Chronic joint pain. Integumentary Denies chronic rashes, inflammation. Neurologic Denies headache, blurred vision. Psychiatric Denies depression and anxiety. Occasional insomnia. Vital Signs: Performed on Feb 24, 2020 10:10 Height - 71.00 in Weight - 220.2 lbs (LOW) BSA - 2.20 sq.m BMI - 30.71 (HIGH) Temperature - 98.2 F (LOW) Pulse - 76 /min Respiration - 18 /min BP - 118/61 mm(hg) O2 Sat - 96 % Pain - 0,1 - No physically strenuous activity, but ambulatory and able to carry out light or sedentary work (e.g. office work, light house work). (ECOG) Physical Examination: Constitutional Alert, oriented, no acute distress. Skin pink, warm and dry. Head Normocephalic; atraumatic. Eyes Conjunctivae and sclerae are clear and without icterus. Pupils are reactive and equal. Neck Supple without masses or thyromegaly. No jugular venous distension. Hematologic/Lymphatic No petechiae or purpura. Respiratory Lungs are clear to auscultation without rhonchi or wheezing. Cardiovascular Regular rate and rhythm of heart without murmurs,clicks, gallops or rubs. Back/Spine Non-tender to palpation. Extremities No visible deformities, no cyanosis, clubbing or edema. Left arm is noted to have venous access for dialysis. They are not red, warm or swollen. Musculoskeletal No tenderness or swelling, normal range of motion without obvious weakness. Integumentary No rashes or lesions. Neurologic No sensory or motor deficits, normal cerebellar function, normal gait. Psychiatric Alert and oriented times three. Coherent speech. Verbalizes understanding of our discussions today. Laboratory:Test performed on Feb 24, 2020 08:40 LDH (Total) 189 U/L Sodium 137 mmol/L Tacrolimus (FK506) 7.0 mcg/L Potassium 4.2 mmol/L Chloride 103 mmol/L CO2 23 mmol/L Anion Gap 15.2 BUN 17 mg/dL Creatinine 1.4 mg/dL Cr Clearance (Est) 88.19 mL/min eGFR 53.4 mL/min Glucose 131 mg/dL Calcium 11.1 mg/dL Protein, Total 6.6 g/dL Albumin 4.5 g/dL Globulin 2.1 g/dL Bilirubin, Total 0.2 mg/dL ALT (SGPT) 40 U/L AST (SGOT) 26 U/L Alkaline Phosphatase 55 IU/L WBC 9.6 10 3/uL RBC 4.32 10 6/uL HGB 13.1 g/dL HCT 41.0 % MCV 94.9 fL MCH 30.3 pg MCHC 32.0 g/dL RDW 12.5 % Platelet Count 196 10 3/cmm MPV 10.9 fL Neutrophils 6.8 10 3/uL Lymphocytes 1.5 10 3/uL Monocytes 1.1 10 3/uL Eosinophils 0.3 10 3/uL Basophils 0.0 10 3/uL Neutrophil % 70.1 % Lymphocyte % 15.2 % Monocyte % 11.1 % Eosinophil % 2.8 % Basophils % 0.4 % Test performed on Dec 29, 2019 06:30 Cholesterol, Total 205 mg/dL Triglycerides 269 mg/dL LDL Cholesterol 106 mg/dL HDL Cholesterol 45 mg/dL Cholesterol/HDL Ratio 4.56 mg/dL LDL / HDL Ratio 2.36 RATIO Hemoglobin A1C % 6.5 % Test performed on Dec 16, 2019 11:03 Phosphorus 2.2 mg/dL Manual Bands Abs 0.3 10 3/cmm Manual Lymphocytes Abs 0.9 10 3/cmm Manual Monocytes Abs 0.9 10 3/cmm Manual Eosinophils Abs 0.3 10 3/cmm Manual Bands % 4.0 % Manual Lymphs % 10 % Manual Monos % 11.0 % Atypical Lymphs % 2.0 % Total Cells Counted 100 Hypochromia Trace Test performed on Oct 07, 2019 12:50 Manual Eosinophils 3.6 % Manual Basophils 0.2 % NRBCs 0 /100 WBC Test performed on Sep 23, 2019 14:26 BUN/Creatinine Ratio 269 Absolute Value Manual Segs 68 % Platelet Estimate normal Pathology Comments trace polychromasia Impression: 1. Patient with thrombotic microangiopathy (aHUS). 2. He developed end-stage renal disease secondary to above. 3. He underwent renal transplant on 05/05/2016. 4. He began a course of treatment with eculizumab on 05/07/2016. 5. 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 His other medical illnesses include: 6. Hypertension. 7. Type II diabetes. 8. Nicotine dependence (cigarettes). As of 05/29/2016 had had completed 4 weekly infusions of eculizumab at the 900 mg dosage. At week 5 the dosage was increased to 1200 mg, and the treatment interval was then increased to 2 weeks. He has since then continued to tolerate treatment well. On 06/24/2018 he presented with fever and a decline in renal function. His treatment was put on hold, and he had further evaluation at [facility]. A specific cause for the illness was not determined, but his symptoms and renal function improved. He was able to restart treatment with eculizumab at the same dosage. During treatment he had developed some lower extremity edema which was worse on the right. There was no evidence of deep vein thrombosis, and the swelling gradually improved. During follow-up there has been some fluctuation in his renal function and in his serum calcium level, but he has otherwise been stable clinically. As of 12/16/2019 his treatment was transitioned to ravulizumab. He tolerated the initial infusion with no adverse effects. Plan: 1. Proceed with ravulizumab 3600 mg by IV infusion every 8 weeks. 2. He does not require premeds. 3. Labs from today were reviewed in detail and discussed with Mr Salcedo and a copy was given to him. WBC 9.6, hemoglobin 13.1, platelets 296,000 ANC 6800. Creatinine is 1.4 which is stable LFTs are normal LDH is 189. Tacrolimus level was 7.0. 4. We will plan to see him back in 8 weeks with CBC CMP , HGBA1c and tacrolimus level. 5. Mr. Salcedo is been instructed to contact us in the interim should questions or problems arise. Signed By: Mayra Diaz-, AOCNP Herman Cunha MD <<Signature on File>>
== END 2020-02-24 06:01 | disposition home or self-care (01) ==
LOC: ONCMED 06:04
PROVIDERS: PCP Nurse Practitioner Family; Visit Provider Nurse Practitioner
DX: D59.3 Hemolytic-uremic syndrome (principal); M31.1 Thrombotic microangiopathy; N18.6 End stage renal disease; D63.8 Anemia in other chronic diseases classified elsewhere; I10 Essential (primary) hypertension; E11.9 Type 2 diabetes mellitus without complications; F17.210 Nicotine dependence, cigarettes, uncomplicated; Z94.0 Kidney transplant status; Z92.25 Personal history of immunosuppression therapy
CPT/HCPCS: 36415; 80053; 80197; 83615; 85025; 96365; 96366; 99214; J1303; J7040

== ENCOUNTER 2020-04-20 10:59 | Outpatient (CLI) | payer MEDICARE, MEDICAID, SELFPAY ==
[2020-04-20 11:57] LABS: Basophils % 0.4 %; Eosinophils # 0.3 10^3/uL (0.0-0.8); Eosinophils % 2.6 %; Hematocrit 39.4 % (42.0-52.0); Hemoglobin 12.5 g/dL (11.7-16.6); Lymphocytes % 9.9 %; Mean Corpuscular HGB Conc 31.7 g/dL (30.0-36.0); Mean Corpuscular Hemoglobin 30.2 pg (28.0-34.0); Mean Corpuscular Volume 95.2 fL (80-94); Mean Platelet Volume 10.7 fL (7.4-10.4); Monocytes # 1.2 10^3/uL (0.2-0.9); Monocytes % 11.6 %; Neutrophils # 7.67 10^3/uL (1.8-7.7); Neutrophils % 75.2 %; Nucleated Red Blood Cells % 0 %; Platelet Count 191 10^3/cmm (130-400); Red Blood Count 4.14 10^6/uL (4.1-5.3); White Blood Count 10.2 10^3/uL (4.0-10.0)
[2020-04-20 12:19] LABS: Alanine Aminotransferase 45 U/L (0-41); Albumin Level 4.4 g/dL (3.5-5.2); Alkaline Phosphatase 51 IU/L (40-130); Anion Gap 12.3 (5-19); Aspartate Amino Transferase 27 U/L (0-40); Blood Urea Nitrogen 14 mg/dL (6-20); Calcium 9.8 mg/dL (8.5-10.5); Carbon Dioxide 22 mmol/L (22-29); Chloride 105 mmol/L (98-107); Chol HDL Ratio 4.53 mg/dL (1.0-5.00); Cholesterol 181 mg/dL (0-200); Globulin 2.3 g/dL (1.3-4.6); Glomerular Filtration Rate 49.3 mL/min (90-130); Glucose 143 mg/dL (65-115); HDL Cholesterol 40 mg/dL (60-100); LDL Cholesterol Calculated 101 mg/dL (50-129); LDL HDL Ratio 2.53 RATIO (0.00-3.22); Osmolality Calculated 279 mOsm/kg (285-295); Phosphorus 2.7 mg/dL (2.5-4.5); Potassium 4.3 mmol/L (3.5-5.1); Sodium 135 mmol/L (136-145); Total Bilirubin 0.3 mg/dL (0.15-1.2); Total Protein 6.7 g/dL (6.6-8.7); Triglycerides 202 mg/dL (0-150)
[2020-04-20 12:52] LABS: Estmated Average Glucose 194; Hemoglobin A1C 8.4 % (4.0-6.0)
[2020-04-20] MEDS: sodium chloride 0.9% 250 ML 75 ML IV (13:54)
--- NOTE | 2020-04-25 00:27 | ONC FU_ITS ---
[facility] Patient Note Patient: Thomas Salcedo Unit #: [id number]: [id number] Dictated By: Mayra DiazDate of Visit: Apr 20, 2020 Onc MED Follow-Up/Prog Note Chief Complaint: Thrombotic microangiopathy. 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 He had presented in November 2009 with acute renal failure. Renal biopsy was consistent with thrombotic microangiopathy. He was treated initially with plasmapheresis, but apparently without response. He started hemodialysis in December 2009. It had been administered via a left arm AV fistula, which was placed sometime in 2010. He has been followed by the renal transplant service at [facility]. Review of the renal biopsy by their pathologists in February 2015 was confirmatory for thrombotic microangiopathy. On 05/05/2016 he underwent renal transplantation. He tolerated the procedure well, and he is dialysis independent. He subsequently began a course of treatment with eculizumab for the thrombotic microangiopathy. He received his initial infusion on 05/07/2016. He completed his 4th weekly infusion of eculizumab at the 900 mg dosage on 05/29/2016. As of 06/05/2016 the dosage was increased to 1200 mg, and the infusion interval was increased to 2 weeks. During follow-up he continued to tolerate his treatment well, and he remained stable clinically. In June 2018 he had developed fever and he had a decline in his renal function. His treatment was put on hold, and he returned to [facility] for further evaluation. A specific cause was not determined, but his symptoms and renal function improved, and he was able to resume treatment with eculizumab. His medical illnesses include hypertension and anemia. He also now has started treatment for type II diabetes. He has a history of smoking one half pack of cigarettes daily. INTERIM HISTORY: He has continued his eculizumab infusions every 2 weeks, and he has continued to tolerate the treatment well. During follow-up there have been fluctuations in his creatinine and in his calcium level, but he has remained stable clinically. As of 12/16/2019 his treatment was transitioned to ravulizumab. He has tolerated it well. Mr Salcedo is here today for followup. He continues with the ravulizumab every 8 weeks and is tolerating it well. He has no new concerns today. He denies any fever, chills or signs of infection. He denies any pain. He states his breathing is the same as always-no worse. He denies cough. He states his bowels and bladder have been normal for him. He denies any neuropathy symptoms. His energy is fair and appetite is good. He states his blood sugars are running less than 150 at home. He is taking Januvia at bedtime only. His ECOG is 1. Past Medical History: Anemia Chronic kidney disease Hypertension Thrombotic microangiopathy (HUS) with end-stage renal diseas Past Surgical History: Placement of av fistula in left arm for dialysis Flu vaccine in 2019 Pneumonia vaccine in 2019 Flu Vaccine in 2018 - Given in right deltoid./lc Right ear tube placement in 2018 Flucevax in 2017 - right deltoid Renal transplant in 2015 Meningocococcal vaccine (Sandoval) in 2015 Meningocococcal vaccine in 2015 Allergies: No Known Allergies. Medications: Aspirin 1 (81 mg) Tablet Oral daily CloNIDine HCl 1 (0.2 mg) Tablet Oral daily Envarsus XR 3 Tablet (of 4 mg) Tablet SR 24 HR Oral daily HydrALAZINE HCl 1 (100 mg) Tablet Oral b.i.d. Januvia 1 Tablet (of 50 mg) Oral daily PRN Lipitor 1 (40 mg) Tablet Oral daily Myfortic 2 (360 mg) Tablet, enteric coated Oral b.i.d. Norvasc 1 (10 mg) Tablet Oral daily PredniSONE 1 (5 mg) Tablet Oral daily Family History: Mr. Salcedo's mother at age 61: stroke, and heart attack, and diabetes. Mr. Salcedo has 3 brothers: 3 alive. He has 1 sister who is alive. He doesn't know about his father. Mother had diabetes, heart attack, and stroke. She at age 61. One brother has hypertension and another brother has diabetes. Social History: Mr. Salcedo is and he is a disabled. He is a daily smoker who has smoked 0.5 packs/day for 30 years. He has no history of drinking. Mr. Salcedo reports the following support systems: lives with spouse, significant other, family, or friends, lives in own house, and supportive family/friends willing to assist with needs. His diet consists of regular meals. He indicates his activity level as: daily activities and light exercise. He has a history of smoking 1/2 pack of cigarettes daily for 30 years. He had some weekend alcohol use while he was in his 20s. He has had no alcohol use since then. Review Of Symptoms: Constitutional Denies fevers, chills, night sweats, excessive fatigue or weight loss. Allergic/Immunologic No reactions. Eyes Denies significant visual changes. ENMT Denies changes in hearing, sore throat, mouth sores, difficulty or changes in swallowing ability, and/or sinus drainage. Endocrine Denies hot flashes or night sweats. Hematologic/Lymphatic Denies easy bruising or bleeding. The patient denies any tender or palpable lymph nodes. Respiratory Denies dyspnea on exertion, chest pain, has occasional nonproductive cough. Cardiovascular Denies anginal chest pain. Gastrointestinal Denies nausea, vomiting, diarrhea, heartburn, or constipation. Genitourinary (M) Denies hematuria, dysuria, increased frequency, urgency, hesitancy or incontinence. Musculoskeletal Chronic joint pain. Integumentary Denies chronic rashes, inflammation. Neurologic Denies headache, blurred vision. Psychiatric Denies depression and anxiety. Occasional insomnia. Vital Signs: Performed on Apr 20, 2020 12:47 Height - 71.00 in Weight - 224.4 lbs (HIGH) BSA - 2.21 sq.m BMI - 31.30 (HIGH) Temperature - 97.7 F (LOW) Pulse - 77 /min Respiration - 17 /min BP - 134/70 mm(hg) O2 Sat - 94 % (LOW) Pain - 0,1 - No physically strenuous activity, but ambulatory and able to carry out light or sedentary work (e.g. office work, light house work). (ECOG) Physical Examination: Constitutional Alert, oriented, no acute distress. Skin pink, warm and dry. Head Normocephalic; atraumatic. Eyes Conjunctivae and sclerae are clear and without icterus. Pupils are reactive and equal. Neck Supple without masses or thyromegaly. No jugular venous distension. Hematologic/Lymphatic No petechiae or purpura. Respiratory Lungs are clear to auscultation without rhonchi or wheezing. Cardiovascular Regular rate and rhythm of heart without murmurs,clicks, gallops or rubs. Back/Spine Non-tender to palpation. Extremities No visible deformities, no cyanosis, clubbing or edema. Left arm is noted to have venous access for dialysis. They are not red, warm or swollen. Musculoskeletal No tenderness or swelling, normal range of motion without obvious weakness. Integumentary No rashes or lesions. Neurologic No sensory or motor deficits, normal cerebellar function, normal gait. Psychiatric Alert and oriented times three. Coherent speech. Verbalizes understanding of our discussions today. Laboratory:Test performed on Apr 20, 2020 11:42 Cholesterol, Total 181 mg/dL Phosphorus 2.7 mg/dL Sodium 135 mmol/L Tacrolimus (FK506) 4.9 mcg/L Potassium 4.3 mmol/L Triglycerides 202 mg/dL Chloride 105 mmol/L LDL Cholesterol 101 mg/dL CO2 22 mmol/L Anion Gap 12.3 HDL Cholesterol 40 mg/dL BUN 14 mg/dL Cholesterol/HDL Ratio 4.53 mg/dL Creatinine 1.5 mg/dL LDL / HDL Ratio 2.53 RATIO Cr Clearance (Est) 83.88 mL/min eGFR 49.3 mL/min Glucose 143 mg/dL Calcium 9.8 mg/dL Protein, Total 6.7 g/dL Albumin 4.4 g/dL Globulin 2.3 g/dL Bilirubin, Total 0.3 mg/dL ALT (SGPT) 45 U/L AST (SGOT) 27 U/L Alkaline Phosphatase 51 IU/L Hemoglobin A1C % 8.4 % WBC 10.2 10 3/uL RBC 4.14 10 6/uL HGB 12.5 g/dL HCT 39.4 % MCV 95.2 fL MCH 30.2 pg MCHC 31.7 g/dL RDW 13.0 % Platelet Count 191 10 3/cmm MPV 10.7 fL Neutrophils 7.67 10 3/uL Lymphocytes 1.0 10 3/uL Monocytes 1.2 10 3/uL Eosinophils 0.3 10 3/uL Basophils 0.0 10 3/uL Neutrophil % 75.2 % Lymphocyte % 9.9 % Monocyte % 11.6 % Eosinophil % 2.6 % Basophils % 0.4 % NRBC % 0 % Test performed on Feb 24, 2020 08:40 LDH (Total) 189 U/L Test performed on Dec 16, 2019 11:03 Manual Bands Abs 0.3 10 3/cmm Manual Lymphocytes Abs 0.9 10 3/cmm Manual Monocytes Abs 0.9 10 3/cmm Manual Eosinophils Abs 0.3 10 3/cmm Manual Bands % 4.0 % Manual Lymphs % 10 % Manual Monos % 11.0 % Atypical Lymphs % 2.0 % Total Cells Counted 100 Hypochromia Trace Impression: 1. Patient with thrombotic microangiopathy (aHUS). 2. He developed end-stage renal disease secondary to above. 3. He underwent renal transplant on 05/05/2016. 4. He began a course of treatment with eculizumab on 05/07/2016. 5. 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 His other medical illnesses include: 6. Hypertension. 7. Type II diabetes. 8. Nicotine dependence (cigarettes). As of 05/29/2016 had had completed 4 weekly infusions of eculizumab at the 900 mg dosage. At week 5 the dosage was increased to 1200 mg, and the treatment interval was then increased to 2 weeks. He has since then continued to tolerate treatment well. On 06/24/2018 he presented with fever and a decline in renal function. His treatment was put on hold, and he had further evaluation at [facility]. A specific cause for the illness was not determined, but his symptoms and renal function improved. He was able to restart treatment with eculizumab at the same dosage. During treatment he had developed some lower extremity edema which was worse on the right. There was no evidence of deep vein thrombosis, and the swelling gradually improved. During follow-up there has been some fluctuation in his renal function and in his serum calcium level, but he has otherwise been stable clinically. As of 12/16/2019 his treatment was transitioned to ravulizumab. He tolerated the initial infusion with no adverse effects. Plan: 1. Proceed with ravulizumab 3600 mg by IV infusion every 8 weeks. 2. He does not require premeds. 3. Labs from today were reviewed in detail and discussed with Mr Salcedo and a copy was given to him. WBC 10.2, hemoglobin 12.5, platelets 191,000 ANC 7700. Creatinine is 1.5 which is stable LFTs are normal LDH was 189 on 02/24/2020. Tacrolimus level was pending at the time of his visit. The result will be called to him when available. 4. We will plan to see him back in 8 weeks with CBC CMP , HGBA1c and tacrolimus level. 5. Mr. Salcedo is been instructed to contact us in the interim should questions or problems arise. 6. We will refill his Januvia 50 mg at hs # 90 today. Signed By: Mayra Diaz-, AOCNP Herman Cunha MD <<Signature on File>>
== END 2020-04-20 11:00 | disposition home or self-care (01) ==
LOC: ONCMED 11:03
PROVIDERS: PCP Nurse Practitioner Family; Visit Provider Nurse Practitioner
DX: D59.3 Hemolytic-uremic syndrome (principal); D63.8 Anemia in other chronic diseases classified elsewhere; M31.1 Thrombotic microangiopathy; I10 Essential (primary) hypertension; R60.0 Localized edema; E11.9 Type 2 diabetes mellitus without complications; F17.210 Nicotine dependence, cigarettes, uncomplicated; Z94.0 Kidney transplant status; Z79.82 Long term (current) use of aspirin; Z79.899 Other long term (current) drug therapy; Z79.52 Long term (current) use of systemic steroids; Z79.84 Long term (current) use of oral hypoglycemic drugs
CPT/HCPCS: 80053; 80061; 80197; 83036; 84100; 85025; 96365; 96366; 99214; J1303; J7040; J7050

== ENCOUNTER 2020-06-15 08:24 | Outpatient (CLI) | payer MEDICARE, MEDICAID, SELFPAY ==
[2020-06-15 08:59] LABS: Basophils % 0.5 %; Eosinophils # 0.3 10^3/uL (0.0-0.8); Eosinophils % 3.5 %; Hematocrit 37.8 % (42.0-52.0); Hemoglobin 12.1 g/dL (11.7-16.6); Lymphocytes # 1.2 10^3/uL (0.8-4.8); Lymphocytes % 14.2 %; Mean Corpuscular Hemoglobin 30.3 pg (28.0-34.0); Mean Corpuscular Volume 94.5 fL (80-94); Mean Platelet Volume 11.3 fL (7.4-10.4); Monocytes # 0.9 10^3/uL (0.2-0.9); Monocytes % 10.6 %; Neutrophils # 5.78 10^3/uL (1.8-7.7); Neutrophils % 70.8 %; Nucleated Red Blood Cells % 0 %; Platelet Count 183 10^3/cmm (130-400); Red Cell Distribution Width 12.8 % (12.1-15.1); White Blood Count 8.2 10^3/uL (4.0-10.0)
[2020-06-15 09:31] LABS: Alanine Aminotransferase 39 U/L (0-41); Albumin Level 4.2 g/dL (3.5-5.2); Alkaline Phosphatase 53 IU/L (40-130); Aspartate Amino Transferase 26 U/L (0-40); Blood Urea Nitrogen 12 mg/dL (6-20); Calcium 10.6 mg/dL (8.5-10.5); Carbon Dioxide 22 mmol/L (22-29); Chloride 103 mmol/L (98-107); Chol HDL Ratio 4.11 mg/dL (1.0-5.00); Cholesterol 152 mg/dL (0-200); Estmated Average Glucose 160; Glomerular Filtration Rate 53.4 mL/min (90-130); Glucose 137 mg/dL (65-115); HDL Cholesterol 37 mg/dL (60-100); Hemoglobin A1C 7.2 % (4.0-6.0); LDL Cholesterol Calculated 69 mg/dL (50-129); LDL HDL Ratio 1.86 RATIO (0.00-3.22); Lactate Dehydrogenase 170 U/L (135-225); Osmolality Calculated 282 mOsm/kg (285-295); Phosphorus 2.9 mg/dL (2.5-4.5); Sodium 135 mmol/L (136-145); Total Bilirubin 0.2 mg/dL (0.15-1.2); Total Protein 6.2 g/dL (6.6-8.7); Triglycerides 230 mg/dL (0-150)
--- NOTE | 2020-06-15 13:15 | ONC FU_ITS ---
Dr. Cunha Patient Follow-Up Note Patient: Thomas Salcedo Unit #: [id number]: 1970 Dicatated By: Herman Cunha M.D.Date of Visit:Jun 15, 2020 Onc Med Follow-up/Prog Note Chief Complaint: Thrombotic microangiopathy. 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 He had presented in November 2009 with acute renal failure. Renal biopsy was consistent with thrombotic microangiopathy. He was treated initially with plasmapheresis, but apparently without response. He started hemodialysis in December 2009. It had been administered via a left arm AV fistula, which was placed sometime in 2010. He has been followed by the renal transplant service at [facility]. Review of the renal biopsy by their pathologists in February 2015 was confirmatory for thrombotic microangiopathy. On 05/05/2016 he underwent renal transplantation. He tolerated the procedure well, and he is dialysis independent. He subsequently began a course of treatment with eculizumab for the thrombotic microangiopathy. He received his initial infusion on 05/07/2016. He completed his 4th weekly infusion of eculizumab at the 900 mg dosage on 05/29/2016. As of 06/05/2016 the dosage was increased to 1200 mg, and the infusion interval was increased to 2 weeks. During follow-up he continued to tolerate his treatment well, and he remained stable clinically. In June 2018 he had developed fever and he had a decline in his renal function. His treatment was put on hold, and he returned to [facility] for further evaluation. A specific cause was not determined, but his symptoms and renal function improved, and he was able to resume treatment with eculizumab. He then continued the eculizumab infusions every 2 weeks, and he continued to tolerate the treatment well. During follow-up there were some fluctuations in his creatinine and in his calcium levels, but he had remained stable clinically. As of 12/16/2019 his treatment was transitioned to ravulizumab. His medical illnesses include hypertension and anemia. He also has type II diabetes. He has a history of smoking 1/2 pack of cigarettes daily. INTERIM HISTORY: He is seen for a scheduled visit. He has been feeling all right. He says he is lazy as ever. His ECOG score is 1. He has good appetite. He has no fever or night sweats. He has no shortness of breath, cough, or chest pain. He has no GI/ complaints other than occasional acid reflux. He has some joint pain, which he attributes to getting old . He has occasional headache. He has no focal neurologic symptoms. Medications: Aspirin 1 (81 mg) Tablet Oral daily, CloNIDine HCl 1 (0.2 mg) Tablet Oral daily, Envarsus XR 3 Tablet (of 4 mg) Tablet SR 24 HR Oral daily, HydrALAZINE HCl 1 (100 mg) Tablet Oral b.i.d., Januvia 1 Tablet (of 50 mg) Oral daily PRN, Lipitor 1 (40 mg) Tablet Oral daily, Myfortic 2 (360 mg) Tablet, enteric coated Oral b.i.d., Norvasc 1 (10 mg) Tablet Oral daily, PredniSONE 1 (5 mg) Tablet Oral daily Allergies: No Known Allergies. Review of Systems: Constitutional - He says he is lazy as ever. He is doing light work. Appetite is good and weight is stable. No fever, night sweats, or hot flashes. ECOG score is 1, ENMT - No sinus congestion/drainage. No mouth sores. No sore throat or difficulty swallowing, Hematologic/Lymphatic - No abnormal bruising or bleeding, Respiratory - No shortness of breath. No cough. No pleuritic pain or hemoptysis, Cardiovascular - No angina pain. No palpitations, Gastrointestinal - No nausea or vomiting. He occasionally has acid reflux. No diarrhea or constipation. No blood in the stool or black stools, Genitourinary (M) - No dysuria or hematuria. No urinary frequency. No urgency or incontinence, Musculoskeletal - He has some joint pain, attributable to getting old , Integumentary - No skin rash, Neurologic - He occasionally has headache. No dizziness. No numbness or tingling. No other focal neurologic symptoms, Psychiatric - No anxiety or depression. He sometimes does not sleep well. Vital Signs: Performed on Jun 15, 2020 09:23 Height - 71.00 in Weight - 225.0 lbs (HIGH) BSA - 2.22 sq.m BMI - 31.38 (HIGH) Temperature - 98.3 F (LOW) Pulse - 73 /min Respiration - 16 /min BP - 160/76 mm(hg) (HIGH) O2 Sat - 96 % Pain - 0 Physical Examination: Constitutional - He looks pretty good generally, Eyes - Sclerae nonicteric. Conjunctivae clear, ENMT - No lesions noted in the oral cavity, Hematologic/Lymphatic - No cervical, clavicular, or axillary adenopathy, Respiratory - Lungs sound clear, Cardiovascular - Heart rhythm is regular. There is a II/ systolic murmur. There is no gallop or rub noted, Abdomen - Soft. Liver and spleen are not enlarged. There is no abdominal mass or ascites noted and there is no inguinal adenopathy, Extremities - There is slight edema on the left, Integumentary - No skin eruption, Neurologic - No focal neurologic deficits noted. Lab/Imaging: Test performed on Jun 15, 2020 08:30 Cholesterol, Total 152 mg/dL LDH (Total) 170 U/L Phosphorus 2.9 mg/dL Sodium 135 mmol/L Potassium 4.0 mmol/L Triglycerides 230 mg/dL Chloride 103 mmol/L Est Avg Glucose (eAG) 160 mg/dL LDL Cholesterol 69 mg/dL CO2 22 mmol/L Anion Gap 14.0 HDL Cholesterol 37 mg/dL BUN 12 mg/dL Cholesterol/HDL Ratio 4.11 mg/dL Creatinine 1.4 mg/dL LDL / HDL Ratio 1.86 RATIO Cr Clearance (Est) 90.1100 mL/min eGFR 53.4 mL/min Glucose 137 mg/dL Osmolality - Calculated 282 mOsm/kg Calcium 10.6 mg/dL Protein, Total 6.2 g/dL Albumin 4.2 g/dL Globulin 2.0 g/dL Bilirubin, Total 0.2 mg/dL ALT (SGPT) 39 U/L AST (SGOT) 26 U/L Alkaline Phosphatase 53 IU/L Hemoglobin A1C % 7.2 % WBC 8.2 10 3/uL RBC 4.00 10 6/uL HGB 12.1 g/dL HCT 37.8 % MCV 94.5 fL MCH 30.3 pg MCHC 32.0 g/dL RDW 12.8 % Platelet Count 183 10 3/cmm MPV 11.3 fL Neutrophils 5.78 10 3/uL Lymphocytes 1.2 10 3/uL Monocytes 0.9 10 3/uL Eosinophils 0.3 10 3/uL Basophils 0.0 10 3/uL Neutrophil % 70.8 % Lymphocyte % 14.2 % Monocyte % 10.6 % Eosinophil % 3.5 % Basophils % 0.5 % NRBC % 0 % Impression: 1. Patient with thrombotic microangiopathy (aHUS). 2. He developed end-stage renal disease secondary to above. 3. He underwent renal transplant on 05/05/2016. 4. He began a course of treatment with eculizumab on 05/07/2016. 5. 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 His other medical illnesses include: 6. Hypertension. 7. Type II diabetes. 8. Nicotine dependence (cigarettes). As of 05/29/2016 had had completed 4 weekly infusions of eculizumab at the 900 mg dosage. At week 5 the dosage was increased to 1200 mg, and the treatment interval was then increased to 2 weeks. He has since then continued to tolerate treatment well. On 06/24/2018 he presented with fever and a decline in renal function. His treatment was put on hold, and he had further evaluation at [facility]. A specific cause for the illness was not determined, but his symptoms and renal function improved. He was able to restart treatment with eculizumab at the same dosage. During treatment he had developed some lower extremity edema which was worse on the right. There was no evidence of deep vein thrombosis, and the swelling gradually improved. During follow-up there were some fluctuation in his renal function and in his serum calcium level, but he had otherwise been stable clinically. As of 12/16/2019 his treatment was transitioned to ravulizumab. He tolerated the initial infusion with no adverse effects. He was then able to complete the transition to every 8-week revulizumab infusions. Since then has laboratory studies and clinical status have remained stable. Plan: He will continue ravulizumab 3600 mg by IV infusion. He returns in 8 weeks. Signed By: Herman Cunha M.D. <<Signature on File>>
[2020-06-15] MEDS: sodium chloride 0.9% 500 ML IV (13:26)
== END 2020-06-15 08:25 | disposition home or self-care (01) ==
LOC: ONCMED 08:27
PROVIDERS: PCP Nurse Practitioner Family; Visit Provider Internal Medicine Medical Oncology
DX: D59.3 Hemolytic-uremic syndrome (principal); M31.1 Thrombotic microangiopathy; D63.1 Anemia in chronic kidney disease; N18.6 End stage renal disease; E11.9 Type 2 diabetes mellitus without complications; I10 Essential (primary) hypertension; F17.210 Nicotine dependence, cigarettes, uncomplicated; Z94.0 Kidney transplant status; Z79.899 Other long term (current) drug therapy; Z79.84 Long term (current) use of oral hypoglycemic drugs
CPT/HCPCS: 80053; 80061; 80197; 83036; 83615; 84100; 85025; 96361; 96365; 96366; 96367; 96375; 99214; J1200; J1303; J2930; J7040

== ENCOUNTER 2020-08-10 12:00 | Outpatient (CLI) | payer MEDICARE, MEDICAID, SELFPAY ==
[2020-08-10] MEDS: sodium chloride 0.9% 500 ML IV (12:55)
[2020-08-10 14:26] LABS: Alanine Aminotransferase 34 U/L (0-41); Alkaline Phosphatase 53 IU/L (40-130); Anion Gap 14.2 (5-19); Aspartate Amino Transferase 21 U/L (0-40); Blood Urea Nitrogen 13 mg/dL (6-20); Calcium 10.1 mg/dL (8.5-10.5); Carbon Dioxide 24 mmol/L (22-29); Chloride 104 mmol/L (98-107); Globulin 1.8 g/dL (1.3-4.6); Glomerular Filtration Rate 53.4 mL/min (90-130); Glucose 164 mg/dL (65-115); Osmolality Calculated 290 mOsm/kg (285-295); Potassium 4.2 mmol/L (3.5-5.1); Sodium 138 mmol/L (136-145); Total Bilirubin 0.2 mg/dL (0.15-1.2); Total Protein 5.8 g/dL (6.6-8.7)
[2020-08-10 14:39] LABS: Lactate Dehydrogenase 201 U/L (135-225)
--- NOTE | 2020-08-15 22:59 | ONC FU_ITS ---
[facility] Patient Note Patient: Thomas Salcedo Unit #: [id number]: [id number] Dictated By: Mayra DiazDate of Visit: Aug 10, 2020 Onc MED Follow-Up/Prog Note Chief Complaint: Thrombotic microangiopathy. 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 He had presented in November 2009 with acute renal failure. Renal biopsy was consistent with thrombotic microangiopathy. He was treated initially with plasmapheresis, but apparently without response. He started hemodialysis in December 2009. It had been administered via a left arm AV fistula, which was placed sometime in 2010. He has been followed by the renal transplant service at [facility]. Review of the renal biopsy by their pathologists in February 2015 was confirmatory for thrombotic microangiopathy. On 05/05/2016 he underwent renal transplantation. He tolerated the procedure well, and he is dialysis independent. He subsequently began a course of treatment with eculizumab for the thrombotic microangiopathy. He received his initial infusion on 05/07/2016. He completed his 4th weekly infusion of eculizumab at the 900 mg dosage on 05/29/2016. As of 06/05/2016 the dosage was increased to 1200 mg, and the infusion interval was increased to 2 weeks. During follow-up he continued to tolerate his treatment well, and he remained stable clinically. In June 2018 he had developed fever and he had a decline in his renal function. His treatment was put on hold, and he returned to [facility] for further evaluation. A specific cause was not determined, but his symptoms and renal function improved, and he was able to resume treatment with eculizumab. His medical illnesses include hypertension and anemia. He also now has started treatment for type II diabetes. He has a history of smoking one half pack of cigarettes daily. INTERIM HISTORY: He has continued his eculizumab infusions every 2 weeks, and he has continued to tolerate the treatment well. During follow-up there have been fluctuations in his creatinine and in his calcium level, but he has remained stable clinically. As of 12/16/2019 his treatment was transitioned to ravulizumab. He has tolerated it well. Mr Salecdo is here today for followup. He continues with the ravulizumab every 8 weeks and is tolerating it well. He has no new concerns today. He states his energy is fair and appetite is good. He denies any fever, chills or signs of infection. He denies any pain. He states his breathing is the same as always-no worse. He denies cough. He states his bowels and bladder have been normal for him. He denies any neuropathy symptoms. He states his blood sugars are running really good at home. He is taking Januvia at bedtime only. His ECOG is 1. Past Medical History: Anemia Chronic kidney disease Hypertension Thrombotic microangiopathy (HUS) with end-stage renal diseas Past Surgical History: Placement of av fistula in left arm for dialysis Flu vaccine in 2019 Pneumonia vaccine in 2019 Flu Vaccine in 2018 - Given in right deltoid./lc Right ear tube placement in 2018 Flucevax in 2017 - right deltoid Renal transplant in 2015 Meningocococcal vaccine (Sandoval) in 2015 Meningocococcal vaccine in 2016 Allergies: No Known Allergies. Medications: Aspirin 1 (81 mg) Tablet Oral daily CloNIDine HCl 1 (0.2 mg) Tablet Oral daily Envarsus XR 3 Tablet (of 4 mg) Tablet SR 24 HR Oral daily HydrALAZINE HCl 1 (100 mg) Tablet Oral b.i.d. Januvia 1 Tablet (of 50 mg) Oral daily PRN Lipitor 1 (40 mg) Tablet Oral daily Myfortic 2 (360 mg) Tablet, enteric coated Oral b.i.d. Norvasc 1 (10 mg) Tablet Oral daily PredniSONE 1 (5 mg) Tablet Oral daily Family History: Mr. Salcedo's mother at age 61: stroke, and heart attack, and diabetes. Mr. Salcedo has 3 brothers: 3 alive. He has 1 sister who is alive. He doesn't know about his father. Mother had diabetes, heart attack, and stroke. She at age 61. One brother has hypertension and another brother has diabetes. Social History: Mr. Salcedo is and he is a disabled. He is a daily smoker who has smoked 0.5 packs/day for 31 years. He has no history of drinking. Mr. Salcedo reports the following support systems: lives with spouse, significant other, family, or friends, lives in own house, and supportive family/friends willing to assist with needs. His diet consists of regular meals. He indicates his activity level as: daily activities and light exercise. He has a history of smoking 1/2 pack of cigarettes daily for 30 years. He had some weekend alcohol use while he was in his 20s. He has had no alcohol use since then. Review Of Symptoms: Constitutional Denies fevers, chills, night sweats, excessive fatigue or weight loss. Allergic/Immunologic No reactions. Eyes Denies significant visual changes. ENMT Denies changes in hearing, sore throat, mouth sores, difficulty or changes in swallowing ability, and/or sinus drainage. Endocrine Denies hot flashes or night sweats. Hematologic/Lymphatic Denies easy bruising or bleeding. The patient denies any tender or palpable lymph nodes. Respiratory Denies dyspnea on exertion, chest pain, has occasional nonproductive cough. Cardiovascular Denies anginal chest pain. Gastrointestinal Denies nausea, vomiting, diarrhea, heartburn, or constipation. Genitourinary (M) Denies hematuria, dysuria, increased frequency, urgency, hesitancy or incontinence. Musculoskeletal Chronic joint pain. Integumentary Denies chronic rashes, inflammation. Neurologic Denies headache, blurred vision. Psychiatric Denies depression and anxiety. Occasional insomnia. Vital Signs: Performed on Aug 10, 2020 16:20 Height - 71.00 in Temperature - 98.1 F (LOW) Pulse - 77 /min Respiration - 18 /min BP - 145/74 mm(hg) (HIGH) O2 Sat - 95 % (LOW) Pain - 0,1 - No physically strenuous activity, but ambulatory and able to carry out light or sedentary work (e.g. office work, light house work). (ECOG) Physical Examination: Constitutional Alert, oriented, no acute distress. Skin pink, warm and dry. Head Normocephalic; atraumatic. Eyes Conjunctivae and sclerae are clear and without icterus. Pupils are reactive and equal. Neck Supple without masses or thyromegaly. No jugular venous distension. Hematologic/Lymphatic No petechiae or purpura. Respiratory Lungs are clear to auscultation without rhonchi or wheezing. Cardiovascular Regular rate and rhythm of heart without murmurs,clicks, gallops or rubs. Abdomen Non-tender, non-distended, no masses, ascites or hepatosplenomegaly.Good bowel sounds noted in all quads. No guarding or rebound tenderness. No pulsatile masses. Back/Spine Non-tender to palpation. Extremities No visible deformities, no cyanosis, clubbing or edema. Left arm is noted to have venous access for dialysis. They are not red, warm or swollen. Musculoskeletal No tenderness or swelling, normal range of motion without obvious weakness. Integumentary No rashes or lesions. Neurologic No sensory or motor deficits, normal cerebellar function, normal gait. Psychiatric Alert and oriented times three. Coherent speech. Verbalizes understanding of our discussions today. Laboratory:Test performed on Aug 10, 2020 12:05 LDH (Total) 201 U/L Sodium 138 mmol/L Potassium 4.2 mmol/L Chloride 104 mmol/L CO2 24 mmol/L Anion Gap 14.2 BUN 13 mg/dL Creatinine 1.4 mg/dL Cr Clearance (Est) 90.1100 mL/min eGFR 53.4 mL/min Glucose 164 mg/dL Osmolality - Calculated 290 mOsm/kg Calcium 10.1 mg/dL Protein, Total 5.8 g/dL Albumin 4.0 g/dL Globulin 1.8 g/dL Bilirubin, Total 0.2 mg/dL ALT (SGPT) 34 U/L AST (SGOT) 21 U/L Alkaline Phosphatase 53 IU/L Impression: 1. Patient with thrombotic microangiopathy (aHUS). 2. He developed end-stage renal disease secondary to above. 3. He underwent renal transplant on 05/05/2016. 4. He began a course of treatment with eculizumab on 05/07/2016. 5. 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 His other medical illnesses include: 6. Hypertension. 7. Type II diabetes. 8. Nicotine dependence (cigarettes). As of 05/29/2016 had had completed 4 weekly infusions of eculizumab at the 900 mg dosage. At week 5 the dosage was increased to 1200 mg, and the treatment interval was then increased to 2 weeks. He has since then continued to tolerate treatment well. On 06/24/2018 he presented with fever and a decline in renal function. His treatment was put on hold, and he had further evaluation at [facility]. A specific cause for the illness was not determined, but his symptoms and renal function improved. He was able to restart treatment with eculizumab at the same dosage. During treatment he had developed some lower extremity edema which was worse on the right. There was no evidence of deep vein thrombosis, and the swelling gradually improved. During follow-up there has been some fluctuation in his renal function and in his serum calcium level, but he has otherwise been stable clinically. As of 12/16/2019 his treatment was transitioned to ravulizumab. He tolerated the initial infusion with no adverse effects. Plan: 1. Proceed with ravulizumab 3600 mg by IV infusion every 8 weeks. 2. He does not require premeds. 3. Labs from today were reviewed in detail and discussed with Mr Salcedo and a copy was given to him. His chemistry was unremarkable and his creatinine was stable at 1.4. His CBC hemolyzed and we were not informative after he was gone from his treatment today. Tacrolimus level was pending at the time of his visit. The result will be called to him when available. 4. We will plan to see him back in 8 weeks with CBC CMP , HGBA1c and tacrolimus level. 5. Mr. Salcedo is been instructed to contact us in the interim should questions or problems arise. Signed By: Mayra Diaz-, AOCNP Herman Cunha MD <<Signature on File>>
== END 2020-08-10 12:01 | disposition home or self-care (01) ==
LOC: ONCMED 12:02
PROVIDERS: PCP Nurse Practitioner Family; Visit Provider Nurse Practitioner
DX: D59.3 Hemolytic-uremic syndrome (principal); D63.8 Anemia in other chronic diseases classified elsewhere; Z94.0 Kidney transplant status; I10 Essential (primary) hypertension; E11.9 Type 2 diabetes mellitus without complications; F17.210 Nicotine dependence, cigarettes, uncomplicated; Z79.899 Other long term (current) drug therapy; Z79.84 Long term (current) use of oral hypoglycemic drugs; Z87.448 Personal history of other diseases of urinary system
CPT/HCPCS: 80053; 80197; 83615; 96365; 96366; 96367; 96375; 99214; J1200; J1303; J2930; J7040

== ENCOUNTER 2020-10-05 08:51 | Outpatient (CLI) | payer MEDICARE, MEDICAID, SELFPAY ==
[2020-10-05 09:31] LABS: Basophils # 0.1 10^3/uL (0.0-0.1); Basophils % 0.5 %; Eosinophils # 0.2 10^3/uL (0.0-0.8); Eosinophils % 2.4 %; Hematocrit 40.9 % (42.0-52.0); Hemoglobin 13.3 g/dL (11.7-16.6); Lymphocytes # 1.2 10^3/uL (0.8-4.8); Lymphocytes % 12.5 %; Mean Corpuscular HGB Conc 32.5 g/dL (30.0-36.0); Mean Corpuscular Hemoglobin 30.4 pg (28.0-34.0); Mean Corpuscular Volume 93.4 fL (80-94); Mean Platelet Volume 11.2 fL (7.4-10.4); Monocytes % 10.3 %; Neutrophils # 6.99 10^3/uL (1.8-7.7); Neutrophils % 73.8 %; Nucleated Red Blood Cells % 0 %; Platelet Count 191 10^3/cmm (130-400); Red Blood Count 4.38 10^6/uL (4.1-5.3); Red Cell Distribution Width 12.4 % (12.1-15.1); White Blood Count 9.5 10^3/uL (4.0-10.0)
[2020-10-05 10:17] LABS: Alanine Aminotransferase 38 U/L (0-41); Albumin Level 4.3 g/dL (3.5-5.2); Alkaline Phosphatase 70 IU/L (40-130); Aspartate Amino Transferase 20 U/L (0-40); Blood Urea Nitrogen 15 mg/dL (6-20); Calcium 10.6 mg/dL (8.5-10.5); Carbon Dioxide 25 mmol/L (22-29); Chloride 99 mmol/L (98-107); Chol HDL Ratio 4.95 mg/dL (1.0-5.00); Cholesterol 183 mg/dL (0-200); Globulin 2.3 g/dL (1.3-4.6); Glomerular Filtration Rate 49.1 mL/min (90-130); Glucose 319 mg/dL (65-115); HDL Cholesterol 37 mg/dL (60-100); LDL Cholesterol Calculated 72 mg/dL (50-129); LDL HDL Ratio 1.95 RATIO (0.00-3.22); Lactate Dehydrogenase 177 U/L (135-225); Osmolality Calculated 289 mOsm/kg (285-295); Phosphorus 2.5 mg/dL (2.5-4.5); Sodium 133 mmol/L (136-145); Total Bilirubin 0.3 mg/dL (0.15-1.2); Total Protein 6.6 g/dL (6.6-8.7); Triglycerides 371 mg/dL (0-150)
[2020-10-05] MEDS: sodium chloride 0.9% 250 ML 75 ML IV (11:15)
[2020-10-05 12:20] LABS: Estmated Average Glucose 206; Hemoglobin A1C 8.8 % (4.0-6.0)
--- NOTE | 2020-10-08 11:19 | ONC FU_ITS ---
Dr. Cunha Patient Follow-Up Note Patient: Thomas Salcedo Unit #: [id number]: 1970 Dicatated By: Herman Cnuha M.D.Date of Visit:Oct 05, 2020 Onc Med Follow-up/Prog Note Chief Complaint: Thrombotic microangiopathy. 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 He had presented in November 2009 with acute renal failure. Renal biopsy was consistent with thrombotic microangiopathy. He was treated initially with plasmapheresis, but apparently without response. He started hemodialysis in December 2009. It had been administered via a left arm AV fistula, which was placed sometime in 2010. He has been followed by the renal transplant service at [facility]. Review of the renal biopsy by their pathologists in February 2015 was confirmatory for thrombotic microangiopathy. On 05/05/2016 he underwent renal transplantation. He tolerated the procedure well, and he is dialysis independent. He subsequently began a course of treatment with eculizumab for the thrombotic microangiopathy. He received his initial infusion on 05/07/2016. He completed his 4th weekly infusion of eculizumab at the 900 mg dosage on 05/29/2016. As of 06/05/2016 the dosage was increased to 1200 mg, and the infusion interval was increased to 2 weeks. During follow-up he continued to tolerate his treatment well, and he remained stable clinically. In June 2018 he had developed fever and he had a decline in his renal function. His treatment was put on hold, and he returned to [facility] for further evaluation. A specific cause was not determined, but his symptoms and renal function improved, and he was able to resume treatment with eculizumab. He then continued the eculizumab infusions every 2 weeks, and he continued to tolerate the treatment well. During follow-up there were some fluctuations in his creatinine and in his calcium levels, but he had remained stable clinically. As of 12/16/2019 his treatment was transitioned to ravulizumab, administered on an every 8-week schedule. His medical illnesses include hypertension and anemia. He also has type II diabetes. He has a history of smoking 1/2 pack of cigarettes daily. INTERIM HISTORY: He is seen for a scheduled visit. He has been feeling okay. Some days he is tired. There has been no significant change in his activity tolerance. ECOG score is 1. He has good appetite. He has no fever or night sweats. He has no shortness of breath, cough, or chest pain. He has no GI or complaints. He has joint pain, worse some days than others. He occasionally has headache. He has no focal neurologic symptoms. Medications: Aspirin 1 (81 mg) Tablet Oral daily, CloNIDine HCl 1 (0.2 mg) Tablet Oral daily, Envarsus XR 3 Tablet (of 4 mg) Tablet SR 24 HR Oral daily, HydrALAZINE HCl 1 (100 mg) Tablet Oral b.i.d., Januvia 1 Tablet (of 50 mg) Oral daily PRN, Lipitor 1 (40 mg) Tablet Oral daily, Myfortic 2 (360 mg) Tablet, enteric coated Oral b.i.d., Norvasc 1 (10 mg) Tablet Oral daily, PredniSONE 1 (5 mg) Tablet Oral daily Allergies: No Known Allergies. Vital Signs: Performed on Oct 05, 2020 10:22 Height - 71.00 in Weight - 223.4 lbs (LOW) BSA - 2.21 sq.m BMI - 31.16 (HIGH) Temperature - 99 F (HIGH) Pulse - 81 /min Respiration - 16 /min BP - 122/69 mm(hg) O2 Sat - 94 % (LOW) Pain - 0 Physical Examination: Constitutional - He looks pretty good generally, Eyes - Sclerae nonicteric. Conjunctivae clear, ENMT - No lesions noted in the oral cavity, Hematologic/Lymphatic - No cervical, clavicular, or axillary adenopathy, Respiratory - Lungs sound clear, Cardiovascular - Heart rhythm is regular. There is a II/ systolic murmur. There is no gallop or rub noted, Abdomen - Soft. Liver and spleen are not enlarged. There is no abdominal mass or ascites noted and there is no inguinal adenopathy, Extremities - Slight edema, Integumentary - No skin eruption, Neurologic - No focal neurologic deficits noted. Lab/Imaging: Test performed on Oct 05, 2020 09:15 Cholesterol, Total 183 mg/dL LDH (Total) 177 U/L Phosphorus 2.5 mg/dL Sodium 133 mmol/L Tacrolimus (FK506) 5.2 mcg/L Potassium 4.0 mmol/L Triglycerides 371 mg/dL Chloride 99 mmol/L Est Avg Glucose (eAG) 206 mg/dL LDL Cholesterol 72 mg/dL CO2 25 mmol/L Anion Gap 13.0 HDL Cholesterol 37 mg/dL BUN 15 mg/dL Cholesterol/HDL Ratio 4.95 mg/dL Creatinine 1.5 mg/dL LDL / HDL Ratio 1.95 RATIO Cr Clearance (Est) 82.57 mL/min eGFR 49.1 mL/min Glucose 319 mg/dL Osmolality - Calculated 289 mOsm/kg Calcium 10.6 mg/dL Protein, Total 6.6 g/dL Albumin 4.3 g/dL Globulin 2.3 g/dL Bilirubin, Total 0.3 mg/dL ALT (SGPT) 38 U/L AST (SGOT) 20 U/L Alkaline Phosphatase 70 IU/L Hemoglobin A1C % 8.8 % WBC 9.5 10 3/uL RBC 4.38 10 6/uL HGB 13.3 g/dL HCT 40.9 % MCV 93.4 fL MCH 30.4 pg MCHC 32.5 g/dL RDW 12.4 % Platelet Count 191 10 3/cmm MPV 11.2 fL Neutrophils 6.99 10 3/uL Lymphocytes 1.2 10 3/uL Monocytes 1.0 10 3/uL Eosinophils 0.2 10 3/uL Basophils 0.1 10 3/uL Neutrophil % 73.8 % Lymphocyte % 12.5 % Monocyte % 10.3 % Eosinophil % 2.4 % Basophils % 0.5 % NRBC % 0 % Historic Problem List: 1. Thrombotic microangiopathy (aHUS) with end-stage renal disease. He underwent renal transplant on 05/05/2016. He began treatment with eculizumab in April 2016. 2. During follow-up he has had chronic kidney disease. 3. He had been chronically anemic and transfusion dependent. 4. Hypertension. 5. Type II diabetes. 6. Nicotine dependence (cigarettes). Problems Addressed with this Encounter and Plan: 1. Thrombotic microangiopathy (aHUS) with end-stage renal disease. He underwent renal transplant on 05/05/2016. He began treatment with eculizumab in April 2016. He had tolerated it well, and during treatment there has been no evidence of recurrence of the thrombotic microangiopathy. He has associated chronic kidney disease, but renal function has been stable. As of 12/16/2019 his treatment was transitioned to ravulizumab. He has continued to tolerate treatment with no adverse effects. His overall clinical status appears stable. He will continue treatment with revulizumab 3600 mg by IV infusion. He returns in 8 weeks. 2. He had been chronic anemic and transfusion dependent. His blood counts have remained adequate during treatment. 3. Type II diabetes. He has been on treatment with Januvia. His hemoglobin A1c is elevated 8.8% compared to 7.2% in May 2020. Results will be forwarded to his primary care physician. Signed By: Herman Cunha M.D. <<Signature on File>>
== END 2020-10-05 08:52 | disposition home or self-care (01) ==
LOC: ONCMED 08:54
PROVIDERS: PCP Nurse Practitioner Family; Visit Provider Internal Medicine Medical Oncology
DX: D59.3 Hemolytic-uremic syndrome (principal); M31.1 Thrombotic microangiopathy; D63.8 Anemia in other chronic diseases classified elsewhere; Z94.0 Kidney transplant status; E11.22 Type 2 diabetes mellitus with diabetic chronic kidney disease; I12.9 Hypertensive chronic kidney disease with stage 1 through stage 4 chronic kidney disease, or unspecified chronic kidney disease; N18.31 Chronic kidney disease, stage 3a; E78.5 Hyperlipidemia, unspecified; F17.210 Nicotine dependence, cigarettes, uncomplicated; Z79.84 Long term (current) use of oral hypoglycemic drugs; Z79.899 Other long term (current) drug therapy
CPT/HCPCS: 80053; 80061; 80197; 83036; 83615; 84100; 85025; 96365; 96366; 99214; J1303; J7040; J7050

== ENCOUNTER 2020-11-30 07:51 | Outpatient (CLI) | payer MEDICARE, MEDICAID, SELFPAY ==
[2020-11-30 09:16] LABS: Basophils # 0.1 10^3/uL (0.0-0.1); Basophils % 0.6 %; Eosinophils # 0.2 10^3/uL (0.0-0.8); Eosinophils % 2.6 %; Hematocrit 42.7 % (42.0-52.0); Hemoglobin 13.4 g/dL (11.7-16.6); Lymphocytes % 12.6 %; Mean Corpuscular HGB Conc 31.4 g/dL (30.0-36.0); Mean Corpuscular Hemoglobin 29.5 pg (28.0-34.0); Mean Corpuscular Volume 94.1 fL (80-94); Monocytes # 0.8 10^3/uL (0.2-0.9); Monocytes % 9.4 %; Neutrophils # 5.91 10^3/uL (1.8-7.7); Neutrophils % 74.4 %; Nucleated Red Blood Cells % 0 %; Platelet Count 196 10^3/cmm (130-400); Red Blood Count 4.54 10^6/uL (4.1-5.3); Red Cell Distribution Width 12.7 % (12.1-15.1)
[2020-11-30 09:25] LABS: Add Urine Microscopic? YES; Bilirubin Urine Neg (Negative); Blood Urine Neg (Negative); Glucose Urine UA Trace (Normal); Ketones Urine Negative (Negative); Leukocyte Esterase Urine 1+ (Negative); Nitrate Urine Positive (Negative); Protein Urine Trace (Negative); Urine Appearance SL Hazy (CLEAR); Urine Color Yellow (Yellow); Urobilinogen Urine Norm (Negative); pH Urine 6.5 (5-7)
[2020-11-30 09:26] LABS: Add Urine Culture? No; Bacteria Urine TRACE /hpf; Mucus Urine TRACE /hpf; Squamous Epithelial Cell Urine 0-4 /hpf (0-5); WBC Urine 0-4 /hpf (0-5)
[2020-11-30 09:35] LABS: Urine Creatinine 121 mg/dL (39-259)
[2020-11-30 09:37] LABS: UPRO/UCREAT Ratio 0.26 mg/mg CR; Urine Protein Random 31 mg/dL
[2020-11-30 09:52] LABS: Calcium 10.2 mg/dL (8.5-10.5); Parathyroid Hormone 128.6 pg/mL (15-65)
[2020-11-30 09:53] LABS: Alanine Aminotransferase 25 U/L (0-41); Albumin Level 3.8 g/dL (3.5-5.2); Alkaline Phosphatase 51 IU/L (40-130); Anion Gap 13.2 (5-19); Aspartate Amino Transferase 18 U/L (0-40); Blood Urea Nitrogen 10 mg/dL (6-20); Calcium 10.1 mg/dL (8.5-10.5); Carbon Dioxide 23 mmol/L (22-29); Chloride 105 mmol/L (98-107); Globulin 2.3 g/dL (1.3-4.6); Glomerular Filtration Rate 53.2 mL/min (90-130); Glucose 131 mg/dL (65-115); Lactate Dehydrogenase 155 U/L (135-225); Osmolality Calculated 285 mOsm/kg (285-295); Potassium 4.2 mmol/L (3.5-5.1); Sodium 137 mmol/L (136-145); Total Bilirubin 0.3 mg/dL (0.15-1.2); Total Protein 6.1 g/dL (6.6-8.7)
[2020-11-30 09:54] LABS: 25 Hydroxy Vitamin D 21 ng/mL (30-100)
[2020-11-30] MEDS: sodium chloride 0.9% 250 ML 75 ML IV (10:38)
--- NOTE | 2020-11-30 10:53 | ONC FU_ITS ---
Dr. Cunha Patient Follow-Up Note Patient: Thomas Salcedo Unit #: [id number]: 1970 Dicatated By: Herman Cunha M.D.Date of Visit:Nov 30, 2020 Onc Med Follow-up/Prog Note Chief Complaint: Thrombotic microangiopathy. 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 He had presented in November 2009 with acute renal failure. Renal biopsy was consistent with thrombotic microangiopathy. He was treated initially with plasmapheresis, but apparently without response. He started hemodialysis in December 2009. It had been administered via a left arm AV fistula, which was placed sometime in 2010. He has been followed by the renal transplant service at [facility]. Review of the renal biopsy by their pathologists in February 2015 was confirmatory for thrombotic microangiopathy. On 05/05/2016 he underwent renal transplantation. He tolerated the procedure well, and he is dialysis independent. He subsequently began a course of treatment with eculizumab for the thrombotic microangiopathy. He received his initial infusion on 05/07/2016. He completed his 4th weekly infusion of eculizumab at the 900 mg dosage on 05/29/2016. As of 06/05/2016 the dosage was increased to 1200 mg, and the infusion interval was increased to 2 weeks. During follow-up he continued to tolerate his treatment well, and he remained stable clinically. In June 2018 he had developed fever and he had a decline in his renal function. His treatment was put on hold, and he returned to [facility] for further evaluation. A specific cause was not determined, but his symptoms and renal function improved, and he was able to resume treatment with eculizumab. He then continued the eculizumab infusions every 2 weeks, and he continued to tolerate the treatment well. During follow-up there were some fluctuations in his creatinine and in his calcium levels, but he had remained stable clinically. As of 12/16/2019 his treatment was transitioned to ravulizumab, administered on an every 8-week schedule. His medical illnesses include hypertension and anemia. He also has type II diabetes. He has a history of smoking 1/2 pack of cigarettes daily. INTERIM HISTORY: He is seen for a scheduled visit. He has been feeling pretty good generally. He says his energy is the same. He is able to do light work. ECOG score is 1. Appetite is good. He has no fever or night sweats. He has a little bit of sinus drainage. He has no shortness of breath, cough, or chest pain. He has no GI or complaints. He does have some joint pain, mainly in the knees and ankles and sometimes also in the hips. He does not complain of headache or dizziness. He has no focal neurologic symptoms. He does not report any abnormal bruising or bleeding. Medications: Aspirin 1 (81 mg) Tablet Oral daily, CloNIDine HCl 1 (0.2 mg) Tablet Oral daily, Envarsus XR 3 Tablet (of 4 mg) Tablet SR 24 HR Oral daily, HydrALAZINE HCl 1 (100 mg) Tablet Oral b.i.d., Januvia 1 Tablet (of 50 mg) Oral daily PRN, Lipitor 1 (40 mg) Tablet Oral daily, Myfortic 2 (360 mg) Tablet, enteric coated Oral b.i.d., Norvasc 1 (10 mg) Tablet Oral daily, PredniSONE 1 (5 mg) Tablet Oral daily Allergies: No Known Allergies. Vital Signs: Performed on Nov 30, 2020 09:32 Height - 71.00 in Weight - 213.8 lbs (LOW) BSA - 2.17 sq.m BMI - 29.82 Temperature - 98.8 F Pulse - 69 /min Respiration - 18 /min BP - 155/71 mm(hg) (HIGH) O2 Sat - 96 % Pain - 0 Fatigue - 4 Physical Examination: Constitutional - He looks pretty good generally, Eyes - Sclerae nonicteric. Conjunctivae clear, ENMT - No lesions noted in the oral cavity, Hematologic/Lymphatic - No cervical, clavicular, or axillary adenopathy, Respiratory - Lungs sound clear, Cardiovascular - Heart rhythm is regular. There is a II/ systolic murmur. There is no gallop or rub noted, Abdomen - Mildly distended but soft. Liver and spleen are not enlarged. There is no abdominal mass or ascites noted and there is no inguinal adenopathy, Extremities - No edema, Integumentary - No skin eruption, Neurologic - No focal neurologic deficits noted. Lab/Imaging: Test performed on Nov 30, 2020 08:30 LDH (Total) 155 U/L Sodium 137 mmol/L Vitamin D (25-Hydroxy), Total 21 ng/mL Potassium 4.2 mmol/L Chloride 105 mmol/L CO2 23 mmol/L Anion Gap 13.2 BUN 10 mg/dL Creatinine 1.4 mg/dL Cr Clearance (Est) 84.6600 mL/min eGFR 53.2 mL/min Glucose 131 mg/dL Osmolality - Calculated 285 mOsm/kg Calcium 10.1 mg/dL Protein, Total 6.1 g/dL Albumin 3.8 g/dL Globulin 2.3 g/dL Bilirubin, Total 0.3 mg/dL ALT (SGPT) 25 U/L AST (SGOT) 18 U/L Alkaline Phosphatase 51 IU/L WBC 8.0 10 3/uL RBC 4.54 10 6/uL HGB 13.4 g/dL HCT 42.7 % MCV 94.1 fL MCH 29.5 pg MCHC 31.4 g/dL RDW 12.7 % Platelet Count 196 10 3/cmm MPV 11.0 fL Neutrophils 5.91 10 3/uL Lymphocytes 1.0 10 3/uL Monocytes 0.8 10 3/uL Eosinophils 0.2 10 3/uL Basophils 0.1 10 3/uL Neutrophil % 74.4 % Lymphocyte % 12.6 % Monocyte % 9.4 % Eosinophil % 2.6 % Basophils % 0.6 % NRBC % 0 % Problem List: 1. Thrombotic microangiopathy (aHUS) with end-stage renal disease. He underwent renal transplant on 05/05/2016. He began treatment with eculizumab in April 2016. 2. During follow-up he has had chronic kidney disease. 3. He had been chronically anemic and transfusion dependent. 4. Hypertension. 5. Type II diabetes. 6. Nicotine dependence (cigarettes). Problems Addressed with this Encounter and Plan: 1. Thrombotic microangiopathy (aHUS) with end-stage renal disease. He underwent renal transplant on 05/05/2016. He began treatment with eculizumab in April 2016. He had tolerated it well, and during treatment there has been no evidence of recurrence of the thrombotic microangiopathy. He has associated chronic kidney disease, but renal function has been stable. As of 12/16/2019 his treatment was transitioned to ravulizumab. He has continued to tolerate treatment with no adverse effects. His overall clinical status appears stable. He will continue treatment with revulizumab 3600 mg by IV infusion. He returns for treatment in 8 weeks and for a follow-up visit in 16 weeks. 2. He had been chronic anemic and transfusion dependent. His blood counts have remained adequate during treatment. 3. Type II diabetes. He has been on treatment with Januvia. His hemoglobin A1c in September 2020 was elevated 8.8% compared to 7.2% in May 2020. It will be rechecked with his next visit. Signed By: Herman Cunha M.D. <<Signature on File>>
== END 2020-11-30 07:52 | disposition home or self-care (01) ==
PROVIDERS: PCP Nurse Practitioner Family; Visit Provider Internal Medicine Medical Oncology
DX: D59.3 Hemolytic-uremic syndrome (principal); E11.22 Type 2 diabetes mellitus with diabetic chronic kidney disease; I12.9 Hypertensive chronic kidney disease with stage 1 through stage 4 chronic kidney disease, or unspecified chronic kidney disease; N18.9 Chronic kidney disease, unspecified; Z94.0 Kidney transplant status; D63.1 Anemia in chronic kidney disease; D63.8 Anemia in other chronic diseases classified elsewhere; F17.210 Nicotine dependence, cigarettes, uncomplicated; Z79.84 Long term (current) use of oral hypoglycemic drugs; Z86.2 Personal history of diseases of the blood and blood-forming organs and certain disorders involving the immune mechanism
CPT/HCPCS: 80053; 80197; 81001; 82306; 82310; 82570; 83615; 83970; 84156; 85025; 96365; 96366; 99214; J1303; J7040; J7050

== ENCOUNTER 2021-01-25 09:18 | Outpatient (CLI) | payer MEDICARE, MEDICAID, SELFPAY ==
[2021-01-25] MEDS: sodium chloride 0.9% 250 ML 75 ML IV (10:00)
[2021-01-25 10:20] LABS: Basophils # 0.1 10^3/uL (0.0-0.1); Basophils % 0.5 %; Eosinophils # 0.2 10^3/uL (0.0-0.8); Eosinophils % 2.3 %; Hematocrit 41.5 % (42.0-52.0); Hemoglobin 13.1 g/dL (11.7-16.6); Lymphocytes # 1.3 10^3/uL (0.8-4.8); Lymphocytes % 13.8 %; Mean Corpuscular HGB Conc 31.6 g/dL (30.0-36.0); Mean Corpuscular Hemoglobin 29.9 pg (28.0-34.0); Mean Corpuscular Volume 94.7 fL (80-94); Mean Platelet Volume 11.1 fL (7.4-10.4); Monocytes % 10.3 %; Neutrophils # 6.95 10^3/uL (1.8-7.7); Neutrophils % 72.7 %; Nucleated Red Blood Cells % 0 %; Platelet Count 175 10^3/cmm (130-400); Red Blood Count 4.38 10^6/uL (4.1-5.3); Red Cell Distribution Width 13.4 % (12.1-15.1); White Blood Count 9.6 10^3/uL (4.0-10.0)
[2021-01-25 11:00] LABS: Albumin Level 4.1 g/dL (3.5-5.2); Anion Gap 13.2 (5-19); Blood Urea Nitrogen 14 mg/dL (6-20); Carbon Dioxide 23 mmol/L (22-29); Chloride 106 mmol/L (98-107); Chol HDL Ratio 4.78 mg/dL (1.0-5.00); Cholesterol 172 mg/dL (0-200); Glucose 101 mg/dL (65-115); HDL Cholesterol 36 mg/dL (60-100); LDL Cholesterol Calculated 97 mg/dL (50-129); LDL HDL Ratio 2.69 RATIO (0.00-3.22); Phosphorus 2.6 mg/dL (2.5-4.5); Potassium 4.2 mmol/L (3.5-5.1); Sodium 138 mmol/L (136-145); Triglycerides 196 mg/dL (0-150)
[2021-01-25 11:32] LABS: Estmated Average Glucose 169; Hemoglobin A1C 7.5 % (4.0-6.0)
== END 2021-01-25 09:19 | disposition home or self-care (01) ==
PROVIDERS: Hospitalist; PCP Nurse Practitioner Family; Visit Provider Internal Medicine Medical Oncology
DX: D59.3 Hemolytic-uremic syndrome (principal); M31.1 Thrombotic microangiopathy; E11.22 Type 2 diabetes mellitus with diabetic chronic kidney disease; N18.6 End stage renal disease; I12.0 Hypertensive chronic kidney disease with stage 5 chronic kidney disease or end stage renal disease; Z79.84 Long term (current) use of oral hypoglycemic drugs; Z94.0 Kidney transplant status
CPT/HCPCS: 80061; 80069; 80197; 83036; 85025; 96365; 96366; J1303; J7040; J7050

== ENCOUNTER 2021-03-22 08:54 | Outpatient (CLI) | payer MEDICARE, MEDICAID, SELFPAY ==
[2021-03-22 09:46] LABS: Basophils # 0.1 10^3/uL (0.0-0.1); Basophils % 0.4 %; Eosinophils # 0.2 10^3/uL (0.0-0.8); Eosinophils % 1.6 %; Hematocrit 42.3 % (42.0-52.0); Hemoglobin 13.5 g/dL (11.7-16.6); Lymphocytes % 8.4 %; Mean Corpuscular HGB Conc 31.9 g/dL (30.0-36.0); Mean Corpuscular Hemoglobin 30.3 pg (28.0-34.0); Mean Corpuscular Volume 95.1 fL (80-94); Mean Platelet Volume 11.2 fL (7.4-10.4); Monocytes # 1.2 10^3/uL (0.2-0.9); Monocytes % 9.5 %; Neutrophils # 9.73 10^3/uL (1.8-7.7); Neutrophils % 79.7 %; Nucleated Red Blood Cells % 0 %; Platelet Count 187 10^3/cmm (130-400); Red Blood Count 4.45 10^6/uL (4.1-5.3); Red Cell Distribution Width 13.6 % (12.1-15.1); White Blood Count 12.2 10^3/uL (4.0-10.0)
[2021-03-22 10:17] LABS: Alanine Aminotransferase 23 U/L (0-41); Alkaline Phosphatase 49 IU/L (40-130); Anion Gap 14.1 (5-19); Aspartate Amino Transferase 17 U/L (0-40); Blood Urea Nitrogen 12 mg/dL (6-20); Calcium 9.5 mg/dL (8.5-10.5); Carbon Dioxide 24 mmol/L (22-29); Chloride 104 mmol/L (98-107); Chol HDL Ratio 4.21 mg/dL (1.0-5.00); Cholesterol 160 mg/dL (0-200); Globulin 2.2 g/dL (1.3-4.6); Glomerular Filtration Rate 70.3 mL/min (90-130); Glucose 123 mg/dL (65-115); HDL Cholesterol 38 mg/dL (60-100); LDL Cholesterol Calculated 90 mg/dL (50-129); LDL HDL Ratio 2.37 RATIO (0.00-3.22); Lactate Dehydrogenase 167 U/L (135-225); Osmolality Calculated 287 mOsm/kg (285-295); Phosphorus 2.2 mg/dL (2.5-4.5); Potassium 4.1 mmol/L (3.5-5.1); Sodium 138 mmol/L (136-145); Total Bilirubin 0.3 mg/dL (0.15-1.2); Total Protein 6.2 g/dL (6.6-8.7); Triglycerides 159 mg/dL (0-150)
[2021-03-22 10:20] LABS: Estmated Average Glucose 146; Hemoglobin A1C 6.7 % (4.0-6.0)
--- NOTE | 2021-03-22 17:55 | ONC FU_ITS ---
Dr. Cunha Patient Follow-Up Note Patient: Thomas Salcedo Unit #: [id number]: 1970 Dicatated By: Herman Cunha M.D.Date of Visit:Mar 22, 2021 Onc Med Follow-up/Prog Note Chief Complaint: Thrombotic microangiopathy. 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 He had presented in November 2009 with acute renal failure. Renal biopsy was consistent with thrombotic microangiopathy. He was treated initially with plasmapheresis, but apparently without response. He started hemodialysis in December 2009. It had been administered via a left arm AV fistula, which was placed sometime in 2010. He has been followed by the renal transplant service at [facility]. Review of the renal biopsy by their pathologists in February 2015 was confirmatory for thrombotic microangiopathy. On 05/05/2016 he underwent renal transplantation. He tolerated the procedure well, and he is dialysis independent. He subsequently began a course of treatment with eculizumab for the thrombotic microangiopathy. He received his initial infusion on 05/07/2016. He completed his 4th weekly infusion of eculizumab at the 900 mg dosage on 05/29/2016. As of 06/05/2016 the dosage was increased to 1200 mg, and the infusion interval was increased to 2 weeks. During follow-up he continued to tolerate his treatment well, and he remained stable clinically. In June 2018 he had developed fever and he had a decline in his renal function. His treatment was put on hold, and he returned to [facility] for further evaluation. A specific cause was not determined, but his symptoms and renal function improved, and he was able to resume treatment with eculizumab. He then continued the eculizumab infusions every 2 weeks, and he continued to tolerate the treatment well. During follow-up there were some fluctuations in his creatinine and in his calcium levels, but he had remained stable clinically. As of 12/16/2019 his treatment was transitioned to ravulizumab, administered on an every 8-week schedule. His medical illnesses include hypertension and anemia. He also has type II diabetes. He has a history of smoking 1/2 pack of cigarettes daily. INTERIM HISTORY: He is seen for a scheduled visit. He has been feeling pretty good generally. His energy has been okay. He does have limited activity, but he is doing light work. ECOG score is 1. He has good appetite. He has no fever or night sweats. He has not had sore mouth or throat. He does not complain of cough, and he has not been having shortness of breath or chest pain. He has no GI or complaints. He does have joint pain at times, but not bad. He has just occasional headache. He has no focal neurologic symptoms. He has had some bruising, but no other bleeding manifestations. Medications: Aspirin 1 (81 mg) Tablet Oral daily, CloNIDine HCl 1 (0.2 mg) Tablet Oral daily, Envarsus XR 3 Tablet (of 4 mg) Tablet SR 24 HR Oral daily, HydrALAZINE HCl 1 (100 mg) Tablet Oral b.i.d., Januvia 1 Tablet (of 50 mg) Oral daily PRN, Lipitor 1 (40 mg) Tablet Oral daily, Myfortic 2 (360 mg) Tablet, enteric coated Oral b.i.d., Norvasc 1 (10 mg) Tablet Oral daily, PredniSONE 1 (5 mg) Tablet Oral daily Allergies: No Known Allergies. Vital Signs: Performed on Mar 22, 2021 14:06 Height - 71.00 in Temperature - 97.6 F (LOW) Pulse - 76 /min Respiration - 18 /min BP - 124/70 mm(hg) O2 Sat - 93 % (LOW) Performed on Mar 22, 2021 11:26 Height - 71.00 in Weight - 211.6 lbs (LOW) BSA - 2.16 sq.m BMI - 29.51 Temperature - 98.5 F Pulse - 67 /min Respiration - 18 /min BP - 124/65 mm(hg) O2 Sat - 97 % Pain - 0 Fatigue - 0 Physical Examination: Constitutional - He looks pretty good generally, Eyes - Sclerae nonicteric. Conjunctivae clear, ENMT - No lesions noted in the oral cavity, Hematologic/Lymphatic - No cervical, clavicular, or axillary adenopathy, Respiratory - Lungs sound clear, Cardiovascular - Heart rhythm is regular. There is a II/ systolic murmur. There is no gallop or rub noted, Abdomen - Mildly distended but soft. Liver and spleen are not enlarged. There is no abdominal mass or ascites noted and there is no inguinal adenopathy, Extremities - No edema, Integumentary - No skin eruption, Neurologic - No focal neurologic deficits noted. Lab/Imaging: Test performed on Mar 22, 2021 09:15 Est Avg Glucose (eAG) 146 mg/dL Hemoglobin A1C % 6.7 % WBC 12.2 10 3/uL RBC 4.45 10 6/uL HGB 13.5 g/dL HCT 42.3 % MCV 95.1 fL MCH 30.3 pg MCHC 31.9 g/dL RDW 13.6 % Platelet Count 187 10 3/cmm MPV 11.2 fL Neutrophils 9.73 10 3/uL Lymphocytes 1.0 10 3/uL Monocytes 1.2 10 3/uL Eosinophils 0.2 10 3/uL Basophils 0.1 10 3/uL Neutrophil % 79.7 % Lymphocyte % 8.4 % Monocyte % 9.5 % Eosinophil % 1.6 % Basophils % 0.4 % NRBC % 0 % Problem List: 1. Thrombotic microangiopathy (aHUS) with end-stage renal disease. He underwent renal transplant on 05/05/2016. He began treatment with eculizumab in April 2016. 2. During follow-up he has had chronic kidney disease. 3. He had been chronically anemic and transfusion dependent. 4. Hypertension. 5. Type II diabetes. 6. Nicotine dependence (cigarettes). Problems Addressed with this Encounter and Plan: 1. Patient with thrombotic microangiopathy (aHUS) with end-stage renal disease. He underwent renal transplant on 05/05/2016. He began treatment with eculizumab in April 2016. He had tolerated it well, and during treatment there has been no evidence of recurrence of the thrombotic microangiopathy. He has associated chronic kidney disease, but renal function has been stable. As of 12/16/2019 his treatment was transitioned to ravulizumab. He has continued to tolerate treatment with no adverse effects. His overall clinical status appears stable. He will continue treatment with revulizumab 3600 mg by IV infusion. He returns for treatment in 8 weeks and for a follow-up visit in 16 weeks. 2. He had been chronically anemic and transfusion dependent. His blood counts have remained adequate during treatment. 3. Type II diabetes. He has been on treatment with Januvia. His hemoglobin A1c in September 2020 was elevated 8.8% compared to 7.2% in May 2020. It is now down to 6.7%. He will continue his medications as prescribed. 4. He is on chronic immunosuppression for the renal transplant. His renal function is stable. Signed By: Herman Cunha M.D. <<Signature on File>>
== END 2021-03-22 08:55 | disposition home or self-care (01) ==
PROVIDERS: Hospitalist; PCP Nurse Practitioner Family; Visit Provider Internal Medicine Medical Oncology
DX: D59.3 Hemolytic-uremic syndrome (principal); D63.8 Anemia in other chronic diseases classified elsewhere; Z94.0 Kidney transplant status; N18.9 Chronic kidney disease, unspecified; Z79.899 Other long term (current) drug therapy; E11.22 Type 2 diabetes mellitus with diabetic chronic kidney disease; D84.821 Immunodeficiency due to drugs; I12.9 Hypertensive chronic kidney disease with stage 1 through stage 4 chronic kidney disease, or unspecified chronic kidney disease; Z79.84 Long term (current) use of oral hypoglycemic drugs; F17.210 Nicotine dependence, cigarettes, uncomplicated
CPT/HCPCS: 36415; 80053; 80061; 80197; 83036; 83615; 84100; 85025; 96365; 96366; 99214; J1303; J7040

== ENCOUNTER 2021-05-17 11:38 | Outpatient (CLI) | payer MEDICARE, MEDICAID, SELFPAY ==
[2021-05-17 12:22] LABS: Basophils # 0.1 10^3/uL (0.0-0.1); Basophils % 0.5 %; Eosinophils # 0.2 10^3/uL (0.0-0.8); Eosinophils % 1.6 %; Hematocrit 43.7 % (42.0-52.0); Hemoglobin 14.2 g/dL (11.7-16.6); Lymphocytes # 1.2 10^3/uL (0.8-4.8); Lymphocytes % 8.3 %; Mean Corpuscular HGB Conc 32.5 g/dL (30.0-36.0); Mean Corpuscular Hemoglobin 30.7 pg (28.0-34.0); Mean Corpuscular Volume 94.6 fl (80-94); Mean Platelet Volume 10.7 fL (7.4-10.4); Monocytes # 1.2 10^3/uL (0.2-0.9); Monocytes % 8.1 %; Neutrophils # 12.04 10^3/uL (1.8-7.7); Nucleated Red Blood Cells % 0 %; Platelet Count 193 10^3/cmm (130-400); Red Blood Count 4.62 10^6/uL (4.1-5.3); Red Cell Distribution Width 13.2 % (12.1-15.1); White Blood Count 14.9 10^3/uL (4.0-10.0)
[2021-05-17 12:54] LABS: Alanine Aminotransferase 27 U/L (0-41); Albumin Level 4.2 g/dL (3.5-5.2); Alkaline Phosphatase 54 IU/L (40-130); Aspartate Amino Transferase 20 U/L (0-40); Blood Urea Nitrogen 18 mg/dL (6-20); Calcium 10.3 mg/dL (8.5-10.5); Carbon Dioxide 24 mmol/L (22-29); Chloride 103 mmol/L (98-107); Globulin 2.4 g/dL (1.3-4.6); Glomerular Filtration Rate 49.1 mL/min (90-130); Glucose 201 mg/dL (65-115); Lactate Dehydrogenase 157 U/L (135-225); Osmolality Calculated 292 mOsm/kg (285-295); Sodium 137 mmol/L (136-145); Total Bilirubin 0.3 mg/dL (0.15-1.2); Total Protein 6.6 g/dL (6.6-8.7)
== END 2021-05-17 11:39 | disposition home or self-care (01) ==
LOC: ONCMED 11:42
PROVIDERS: Internal Medicine Medical Oncology; PCP Nurse Practitioner Family; Visit Provider Nurse Practitioner
DX: D59.3 Hemolytic-uremic syndrome (principal); D63.8 Anemia in other chronic diseases classified elsewhere; Z94.0 Kidney transplant status; M31.1 Thrombotic microangiopathy; N18.6 End stage renal disease; Z99.2 Dependence on renal dialysis; I12.0 Hypertensive chronic kidney disease with stage 5 chronic kidney disease or end stage renal disease; E11.22 Type 2 diabetes mellitus with diabetic chronic kidney disease; F17.210 Nicotine dependence, cigarettes, uncomplicated; Z79.899 Other long term (current) drug therapy; Z79.84 Long term (current) use of oral hypoglycemic drugs
CPT/HCPCS: 80053; 83615; 85025; 96365; J1303

== ENCOUNTER 2021-07-16 08:54 | Outpatient (CLI) | payer MEDICARE, MEDICAID, SELFPAY ==
[2021-07-16 09:42] LABS: Basophils % 0.4 %; Eosinophils # 0.2 10^3/uL (0.0-0.8); Eosinophils % 2.4 %; Hematocrit 41.9 % (42.0-52.0); Hemoglobin 13.7 g/dL (11.7-16.6); Lymphocytes # 1.2 10^3/uL (0.8-4.8); Lymphocytes % 13.1 %; Mean Corpuscular HGB Conc 32.7 g/dL (30.0-36.0); Mean Corpuscular Hemoglobin 31.1 pg (28.0-34.0); Mean Corpuscular Volume 95.2 fl (80-94); Monocytes % 10.2 %; Neutrophils # 6.92 10^3/uL (1.8-7.7); Neutrophils % 73.5 %; Nucleated Red Blood Cells % 0 %; Platelet Count 202 10^3/cmm (130-400); Red Cell Distribution Width 13.2 % (12.1-15.1); White Blood Count 9.4 10^3/uL (4.0-10.0)
[2021-07-16 10:03] LABS: Alanine Aminotransferase 22 U/L (0-41); Alkaline Phosphatase 52 IU/L (40-130); Anion Gap 13.1 (5-19); Aspartate Amino Transferase 17 U/L (0-40); Blood Urea Nitrogen 14 mg/dL (6-20); Calcium 10.6 mg/dL (8.5-10.5); Carbon Dioxide 25 mmol/L (22-29); Chloride 106 mmol/L (98-107); Globulin 2.2 g/dL (1.3-4.6); Glomerular Filtration Rate 70.3 mL/min (90-130); Glucose 110 mg/dL (65-115); Lactate Dehydrogenase 142 U/L (135-225); Osmolality Calculated 291 mOsm/kg (285-295); Potassium 4.1 mmol/L (3.5-5.1); Sodium 140 mmol/L (136-145); Total Bilirubin 0.2 mg/dL (0.15-1.2); Total Protein 6.2 g/dL (6.6-8.7)
[2021-07-16 10:07] LABS: Estmated Average Glucose 154
[2021-07-16] MEDS: sodium chloride 0.9% 250 ML 75 ML IV (11:36)
--- NOTE | 2021-07-18 07:02 | ONC FU_ITS ---
Dr. Cunha Patient Follow-Up Note Patient: Thomas Salcedo Unit #: [id number]: 1970 Dicatated By: Herman Cunha M.D.Date of Visit:Jul 16, 2021 Onc Med Follow-up/Prog Note Chief Complaint: Thrombotic microangiopathy. 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 He had presented in November 2009 with acute renal failure. Renal biopsy was consistent with thrombotic microangiopathy. He was treated initially with plasmapheresis, but apparently without response. He started hemodialysis in December 2009. It had been administered via a left arm AV fistula, which was placed sometime in 2010. He has been followed by the renal transplant service at [facility]. Review of the renal biopsy by their pathologists in February 2015 was confirmatory for thrombotic microangiopathy. On 05/05/2016 he underwent renal transplantation. He tolerated the procedure well, and he became dialysis independent. He subsequently began a course of treatment with eculizumab for the thrombotic microangiopathy. He received his initial infusion on 05/07/2016. He completed his 4th weekly infusion of eculizumab at the 900 mg dosage on 05/29/2016. As of 06/05/2016 the dosage was increased to 1200 mg, and the infusion interval was increased to 2 weeks. During follow-up he continued to tolerate his treatment well, and he remained stable clinically. In June 2018 he had developed fever and he had a decline in his renal function. His treatment was put on hold, and he returned to [facility] for further evaluation. A specific cause was not determined, but his symptoms and renal function improved, and he was able to resume treatment with eculizumab. He then continued the eculizumab infusions every 2 weeks, and he continued to tolerate the treatment well. During follow-up there were some fluctuations in his creatinine and in his calcium levels, but he remained stable clinically. As of 12/16/2019 his treatment was transitioned to ravulizumab, administered on an every 8-week schedule. His other medical illnesses include hypertension, type II diabetes, and anemia. He has a history of smoking 1/2 pack of cigarettes daily. INTERIM HISTORY: He is seen for a scheduled visit. He has been feeling pretty good generally. He says his energy is okay, though some days he does feel tired. He is able to do light work. ECOG score is 1. He has good appetite. He has no fever or night sweats. He recently had sore throat, lasting only 1 day. He has not had cough and he does not complain of shortness of breath or chest pain. He also recently had diarrhea for a day and a half, but that has resolved now. He has no other GI or complaints. He sometimes feels achy, but that does tend to be weather related. He does not complain of headache or dizziness, and he has no focal neurologic symptoms. Medications: Aspirin 1 (81 mg) Tablet Oral daily, CloNIDine HCl 1 (0.2 mg) Tablet Oral daily, Envarsus XR 3 Tablet (of 4 mg) Tablet SR 24 HR Oral daily, Glimepiride 1 Tablet (of 1 mg) Oral daily, HydrALAZINE HCl 1 (100 mg) Tablet Oral b.i.d., Januvia 1 Tablet (of 50 mg) Oral daily PRN, Lipitor 1 (40 mg) Tablet Oral daily, Lisinopril 1 Tablet (of 10 mg) Oral daily, Myfortic 2 (360 mg) Tablet, enteric coated Oral b.i.d., Norvasc 1 (10 mg) Tablet Oral daily, PredniSONE 1 (5 mg) Tablet Oral daily Allergies: No Known Allergies. Vital Signs: Performed on Jul 16, 2021 11:55 Height - 71.00 in Weight - 206.8 lbs (LOW) BSA - 2.14 sq.m BMI - 28.84 Temperature - 99.4 F (HIGH) Pulse - 82 /min Respiration - 18 /min BP - 163/76 mm(hg) (HIGH) O2 Sat - 96 % Pain - 0 Fatigue - 0 Physical Examination: Constitutional - He looks pretty good generally, Eyes - Sclerae nonicteric. Conjunctivae clear, ENMT - No lesions noted in the oral cavity, Hematologic/Lymphatic - No cervical, clavicular, or axillary adenopathy, Respiratory - Lungs sound clear, Cardiovascular - Heart rhythm is regular. There is a II/ systolic murmur. There is no gallop or rub noted, Abdomen - Mildly distended but soft. Liver and spleen are not enlarged. There is no abdominal mass or ascites noted and there is no inguinal adenopathy, Extremities - No edema, Integumentary - No skin eruption, Neurologic - No focal neurologic deficits noted. Lab/Imaging: Test performed on Jul 16, 2021 09:14 LDH (Total) 142 U/L Sodium 140 mmol/L Potassium 4.1 mmol/L Chloride 106 mmol/L Est Avg Glucose (eAG) 154 mg/dL CO2 25 mmol/L Anion Gap 13.1 BUN 14 mg/dL Creatinine 1.1 mg/dL Cr Clearance (Est) 104.23 mL/min eGFR 70.3 mL/min Glucose 110 mg/dL Osmolality - Calculated 291 mOsm/kg Calcium 10.6 mg/dL Protein, Total 6.2 g/dL Albumin 4.0 g/dL Globulin 2.2 g/dL Bilirubin, Total 0.2 mg/dL ALT (SGPT) 22 U/L AST (SGOT) 17 U/L Alkaline Phosphatase 52 IU/L Hemoglobin A1C % 7.0 % WBC 9.4 10 3/uL RBC 4.40 10 6/uL HGB 13.7 g/dL HCT 41.9 % MCV 95.2 fl MCH 31.1 pg MCHC 32.7 g/dL RDW 13.2 % Platelet Count 202 10 3/cmm MPV 11.0 fL Neutrophils 6.92 10 3/uL Lymphocytes 1.2 10 3/uL Monocytes 1.0 10 3/uL Eosinophils 0.2 10 3/uL Basophils 0.0 10 3/uL Neutrophil % 73.5 % Lymphocyte % 13.1 % Monocyte % 10.2 % Eosinophil % 2.4 % Basophils % 0.4 % NRBC % 0 % Problem List: 1. Thrombotic microangiopathy (aHUS) with end-stage renal disease. He underwent renal transplant on 05/05/2016. He began treatment with eculizumab in April 2016. 2. During follow-up he has had chronic kidney disease. 3. 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 4. Hypertension. 5. Type II diabetes. 6. Nicotine dependence (cigarettes). Problems Addressed with this Encounter and Plan: 1. Patient with thrombotic microangiopathy (aHUS) with end-stage renal disease. He underwent renal transplant on 05/05/2016. He began treatment with eculizumab in April 2016. He had tolerated it well, and during treatment there has been no evidence of recurrence of the thrombotic microangiopathy. He has associated chronic kidney disease, but renal function has been stable. As of 12/16/2019 his treatment was transitioned to ravulizumab. He has continued to tolerate treatment with no adverse effects. His overall clinical status remains stable. He will continue treatment with revulizumab 3600 mg by IV infusion. He returns for treatment in 8 weeks and for a follow-up visit in 16 weeks. 2. Type II diabetes. He has been on treatment with Januvia. His hemoglobin A1c has been fairly stable in the range of 7%. He continues his same treatment. 3. He is on chronic immunosuppression for the renal transplant. His renal function is stable. Signed By: Herman Cunha M.D. <<Signature on File>>
== END 2021-07-16 08:55 | disposition home or self-care (01) ==
LOC: ONCMED 08:57
PROVIDERS: Visit Provider Internal Medicine Medical Oncology
DX: M31.10 Thrombotic microangiopathy, unspecified (principal); N18.6 End stage renal disease; D63.1 Anemia in chronic kidney disease; E11.22 Type 2 diabetes mellitus with diabetic chronic kidney disease; F17.210 Nicotine dependence, cigarettes, uncomplicated; I12.0 Hypertensive chronic kidney disease with stage 5 chronic kidney disease or end stage renal disease; Z79.899 Other long term (current) drug therapy; Z79.4 Long term (current) use of insulin
CPT/HCPCS: 80053; 83036; 83615; 85025; 96365; 99215; J7050

== ENCOUNTER 2021-09-10 12:41 | Outpatient (CLI) | payer MEDICARE, MEDICAID, SELFPAY | END 2021-09-10 12:42 | disposition home or self-care (01) | LOC: ONCMED 12:43 | PROVIDERS: Visit Provider Nurse Practitioner | DX: D59.3 Hemolytic-uremic syndrome (principal); D63.8 Anemia in other chronic diseases classified elsewhere; Z94.0 Kidney transplant status; M31.10 Thrombotic microangiopathy, unspecified; E11.22 Type 2 diabetes mellitus with diabetic chronic kidney disease; N18.6 End stage renal disease; I12.0 Hypertensive chronic kidney disease with stage 5 chronic kidney disease or end stage renal disease; F17.210 Nicotine dependence, cigarettes, uncomplicated; Z99.2 Dependence on renal dialysis; Z79.84 Long term (current) use of oral hypoglycemic drugs | CPT/HCPCS: 96365; J1303 ==

== ENCOUNTER 2021-11-05 08:56 | Outpatient (CLI) | payer MEDICARE, OTHER, MEDICAID, SELFPAY ==
[2021-11-05 09:44] LABS: Basophils # 0.1 10^3/uL (0.0-0.1); Basophils % 0.5 %; Eosinophils # 0.3 10^3/uL (0.0-0.8); Eosinophils % 2.2 %; Hematocrit 42.6 % (42.0-52.0); Hemoglobin 13.4 g/dL (11.7-16.6); Lymphocytes # 1.1 10^3/uL (0.8-4.8); Lymphocytes % 8.2 %; Mean Corpuscular HGB Conc 31.5 g/dL (30.0-36.0); Mean Corpuscular Hemoglobin 30.5 pg (28.0-34.0); Mean Platelet Volume 10.9 fL (7.4-10.4); Monocytes % 7.7 %; Neutrophils # 10.63 10^3/uL (1.8-7.7); Neutrophils % 80.9 %; Nucleated Red Blood Cells % 0 %; Platelet Count 193 10^3/cmm (130-400); Red Blood Count 4.39 10^6/uL (4.1-5.3); Red Cell Distribution Width 13.3 % (12.1-15.1); White Blood Count 13.1 10^3/uL (4.0-10.0)
[2021-11-05 10:05] LABS: Estmated Average Glucose 151; Hemoglobin A1C 6.9 % (4.0-6.0)
[2021-11-05 10:16] LABS: Alanine Aminotransferase 17 U/L (0-41); Albumin Level 4.2 g/dL (3.5-5.2); Alkaline Phosphatase 58 IU/L (40-130); Aspartate Amino Transferase 16 U/L (0-40); Blood Urea Nitrogen 12 mg/dL (6-20); Calcium 9.6 mg/dL (8.5-10.5); Carbon Dioxide 23 mmol/L (22-29); Chloride 107 mmol/L (98-107); Chol HDL Ratio 5.54 mg/dL (1.0-5.00); Cholesterol 205 mg/dL (0-200); Glomerular Filtration Rate 63.3 mL/min (90-130); Glucose 170 mg/dL (65-115); HDL Cholesterol 37 mg/dL (60-100); LDL Cholesterol Calculated 111 mg/dL (50-129); Osmolality Calculated 294 mOsm/kg (285-295); Sodium 140 mmol/L (136-145); Total Bilirubin 0.2 mg/dL (0.15-1.2); Total Protein 6.2 g/dL (6.6-8.7); Triglycerides 284 mg/dL (0-150)
[2021-11-05 10:19] LABS: Anion Gap 14.2 (5-19); Potassium 4.2 mmol/L (3.5-5.1)
[2021-11-05 10:49] LABS: Lactate Dehydrogenase 192 U/L (135-225)
--- NOTE | 2021-11-06 12:35 | ONC FU_ITS ---
Dr. Cunha Patient Follow-Up Note Patient: Thomas Salcedo Unit #: [id number]: 1970 Dicatated By: Herman Cunha M.D.Date of Visit:Nov 05, 2021 Onc Med Follow-up/Prog Note Chief Complaint: Thrombotic microangiopathy. 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 He had presented in November 2009 with acute renal failure. Renal biopsy was consistent with thrombotic microangiopathy. He was treated initially with plasmapheresis, but apparently without response. He started hemodialysis in December 2009. It had been administered via a left arm AV fistula, which was placed sometime in 2010. He has been followed by the renal transplant service at [facility]. Review of the renal biopsy by their pathologists in February 2015 was confirmatory for thrombotic microangiopathy. On 05/05/2016 he underwent renal transplantation. He tolerated the procedure well, and he became dialysis independent. He subsequently began a course of treatment with eculizumab for the thrombotic microangiopathy. He received his initial infusion on 05/07/2016. He completed his 4th weekly infusion of eculizumab at the 900 mg dosage on 05/29/2016. As of 06/05/2016 the dosage was increased to 1200 mg, and the infusion interval was increased to 2 weeks. During follow-up he continued to tolerate his treatment well, and he remained stable clinically. In June 2018 he had developed fever and he had a decline in his renal function. His treatment was put on hold, and he returned to [facility] for further evaluation. A specific cause was not determined, but his symptoms and renal function improved, and he was able to resume treatment with eculizumab. He then continued the eculizumab infusions every 2 weeks, and he continued to tolerate the treatment well. During follow-up there were some fluctuations in his creatinine and in his calcium levels, but he remained stable clinically. As of 12/16/2019 his treatment was transitioned to ravulizumab, administered on an every 8-week schedule. His other medical illnesses include hypertension, type II diabetes, and anemia. He has a history of smoking 1/2 pack of cigarettes daily. INTERIM HISTORY: He is seen for a scheduled visit. He has been feeling pretty good generally, though he does complain that his energy comes and goes. His ECOG score is 1. He has good appetite. He has no fever or night sweats. He has not had sore mouth or throat. He does not complain of cough, and he has not been having shortness of breath or chest pain. He occasionally has nausea. He has no other GI or complaints. His back bothers him occasionally. He has no other joint or bone pain. He does not complain of headache or dizziness, and he has no focal neurologic symptoms. He has not had any abnormal bruising or bleeding. Medications: Aspirin 1 (81 mg) Tablet Oral daily, CloNIDine HCl 1 (0.2 mg) Tablet Oral daily, Envarsus XR 3 Tablet (of 4 mg) Tablet SR 24 HR Oral daily, Glimepiride 1 Tablet (of 1 mg) Oral daily, HydrALAZINE HCl 1 (100 mg) Tablet Oral b.i.d., Januvia 1 Tablet (of 50 mg) Oral daily PRN, Lipitor 1 (40 mg) Tablet Oral daily, Lisinopril 1 Tablet (of 10 mg) Oral daily, Myfortic 2 (360 mg) Tablet, enteric coated Oral b.i.d., Norvasc 1 (10 mg) Tablet Oral daily, PredniSONE 1 (5 mg) Tablet Oral daily Allergies: No Known Allergies. Vital Signs: Performed on Nov 05, 2021 13:17 Height - 71.00 in Weight - 213.6 lbs (HIGH) BSA - 2.17 sq.m BMI - 29.79 Temperature - 97.7 F (LOW) Pulse - 84 /min Respiration - 16 /min BP - 197/79 mm(hg) (HIGH) O2 Sat - 98 % Pain - 0 Fatigue - 5 Physical Examination: Constitutional - He looks pretty good generally, Eyes - Sclerae nonicteric. Conjunctivae clear, ENMT - No lesions noted in the oral cavity, Hematologic/Lymphatic - No cervical, clavicular, or axillary adenopathy, Respiratory - Lungs sound clear, Cardiovascular - Heart rhythm is regular. There is a II/ systolic murmur. There is no gallop or rub noted, Abdomen - Soft. Liver and spleen are not enlarged. There is no abdominal mass or ascites noted and there is no inguinal adenopathy, Extremities - Slight edema, Neurologic - No focal neurologic deficits noted. Lab/Imaging: Test performed on Nov 05, 2021 09:30 Cholesterol, Total 205 mg/dL LDH (Total) 192 U/L Sodium 140 mmol/L Potassium 4.2 mmol/L Triglycerides 284 mg/dL Chloride 107 mmol/L Est Avg Glucose (eAG) 151 mg/dL LDL Cholesterol 111 mg/dL CO2 23 mmol/L Anion Gap 14.2 HDL Cholesterol 37 mg/dL BUN 12 mg/dL Cholesterol/HDL Ratio 5.54 mg/dL Creatinine 1.2 mg/dL LDL / HDL Ratio 3.00 RATIO Cr Clearance (Est) 97.56 mL/min eGFR 63.3 mL/min Glucose 170 mg/dL Osmolality - Calculated 294 mOsm/kg Calcium 9.6 mg/dL Protein, Total 6.2 g/dL Albumin 4.2 g/dL Globulin 2.0 g/dL Bilirubin, Total 0.2 mg/dL ALT (SGPT) 17 U/L AST (SGOT) 16 U/L Alkaline Phosphatase 58 IU/L Hemoglobin A1C % 6.9 % WBC 13.1 10 3/uL RBC 4.39 10 6/uL HGB 13.4 g/dL HCT 42.6 % MCV 97.0 fl MCH 30.5 pg MCHC 31.5 g/dL RDW 13.3 % Platelet Count 193 10 3/cmm MPV 10.9 fL Neutrophils 10.63 10 3/uL Lymphocytes 1.1 10 3/uL Monocytes 1.0 10 3/uL Eosinophils 0.3 10 3/uL Basophils 0.1 10 3/uL Neutrophil % 80.9 % Lymphocyte % 8.2 % Monocyte % 7.7 % Eosinophil % 2.2 % Basophils % 0.5 % NRBC % 0 % Problem List: 1. Thrombotic microangiopathy (aHUS) with end-stage renal disease. He underwent renal transplant on 05/05/2016. He began treatment with eculizumab in April 2016. 2. During follow-up he has had chronic kidney disease. 3. 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 4. Hypertension. 5. Type II diabetes. 6. Nicotine dependence (cigarettes). Problems Addressed with this Encounter and Plan: 1. Patient with thrombotic microangiopathy (aHUS) with end-stage renal disease. He underwent renal transplant on 05/05/2016. He began treatment with eculizumab in April 2016. He had tolerated it well, and during treatment there has been no evidence of recurrence of the thrombotic microangiopathy. He has associated chronic kidney disease, but renal function has been stable. As of 12/16/2019 his treatment was transitioned to ravulizumab. He has since then continued to tolerate treatment with no adverse effects. His overall clinical status remains stable. He will continue treatment with revulizumab 3600 mg by IV infusion. He returns for treatment in 8 weeks and for a follow-up visit in 16 weeks. 2. Type II diabetes. He has been on treatment with Januvia. His hemoglobin A1c has been fairly stable in the range of 7%. He continues his same treatment. 3. He is on chronic immunosuppression for the renal transplant. His renal function is stable. Signed By: Herman Cunha M.D. <<Signature on File>>
== END 2021-11-05 08:57 | disposition home or self-care (01) ==
PROVIDERS: Visit Provider Internal Medicine Medical Oncology
DX: D59.3 Hemolytic-uremic syndrome (principal); D63.8 Anemia in other chronic diseases classified elsewhere; Z94.0 Kidney transplant status; M31.10 Thrombotic microangiopathy, unspecified; I12.0 Hypertensive chronic kidney disease with stage 5 chronic kidney disease or end stage renal disease; E11.22 Type 2 diabetes mellitus with diabetic chronic kidney disease; N18.6 End stage renal disease; F17.210 Nicotine dependence, cigarettes, uncomplicated; Z79.4 Long term (current) use of insulin; Z79.899 Other long term (current) drug therapy
CPT/HCPCS: 80053; 80061; 80197; 83036; 83615; 85025; 96365; 99215; J1303

== ENCOUNTER 2022-01-03 13:56 | Outpatient (CLI) | payer MEDICARE, OTHER, MEDICAID, SELFPAY ==
[2022-01-03 15:05] LABS: Basophils % 0.3 %; Eosinophils # 0.2 10^3/uL (0.0-0.8); Eosinophils % 1.3 %; Hematocrit 39.5 % (42.0-52.0); Hemoglobin 12.7 g/dL (11.7-16.6); Lymphocytes # 0.8 10^3/uL (0.8-4.8); Lymphocytes % 6.5 %; Mean Corpuscular HGB Conc 32.2 g/dL (30.0-36.0); Mean Corpuscular Hemoglobin 30.7 pg (28.0-34.0); Mean Corpuscular Volume 95.4 fl (80-94); Mean Platelet Volume 10.6 fL (7.4-10.4); Monocytes # 0.9 10^3/uL (0.2-0.9); Monocytes % 7.5 %; Neutrophils # 10.52 10^3/uL (1.8-7.7); Neutrophils % 83.8 %; Nucleated Red Blood Cells % 0 %; Platelet Count 174 10^3/cmm (130-400); Red Blood Count 4.14 10^6/uL (4.1-5.3); Red Cell Distribution Width 13.4 % (12.1-15.1); White Blood Count 12.6 10^3/uL (4.0-10.0)
[2022-01-03 16:10] LABS: Alanine Aminotransferase 22 U/L (0-41); Alkaline Phosphatase 55 IU/L (40-130); Anion Gap 13.8 (5-19); Aspartate Amino Transferase 17 U/L (0-40); Blood Urea Nitrogen 16 mg/dL (6-20); Calcium 10.8 mg/dL (8.5-10.5); Carbon Dioxide 23 mmol/L (22-29); Chloride 104 mmol/L (98-107); Globulin 1.8 g/dL (1.3-4.6); Glomerular Filtration Rate 63.3 mL/min (90-130); Glucose 158 mg/dL (65-115); Lactate Dehydrogenase 148 U/L (135-225); Osmolality Calculated 286 mOsm/kg (285-295); Potassium 4.8 mmol/L (3.5-5.1); Sodium 136 mmol/L (136-145); Total Bilirubin 0.2 mg/dL (0.15-1.2); Total Protein 5.8 g/dL (6.6-8.7)
[2022-01-03] MEDS: sodium chloride 0.9% 250 ML 144 ML IV (16:30)
== END 2022-01-03 13:57 | disposition home or self-care (01) ==
PROVIDERS: Visit Provider Internal Medicine Medical Oncology
DX: D59.3 Hemolytic-uremic syndrome (principal); D63.8 Anemia in other chronic diseases classified elsewhere; Z94.0 Kidney transplant status; M31.10 Thrombotic microangiopathy, unspecified
CPT/HCPCS: 80053; 83615; 85025; 96365; 96366; J1303; J7050

== ENCOUNTER 2022-03-04 12:30 | Oncology outpatient (recurring) (ONCR) | payer MEDICARE, MEDICAID, SELFPAY ==
[2022-02-25 09:41] LABS: Basophils # 0.1 10^3/uL (0.0-0.1); Basophils % 0.5 %; Eosinophils # 0.2 10^3/uL (0.0-0.8); Eosinophils % 1.6 %; Hematocrit 43.8 % (42.0-52.0); Hemoglobin 14.1 g/dL (11.7-16.6); Lymphocytes # 1.5 10^3/uL (0.8-4.8); Lymphocytes % 14.1 %; Mean Corpuscular HGB Conc 32.2 g/dL (30.0-36.0); Mean Corpuscular Hemoglobin 30.4 pg (28.0-34.0); Mean Corpuscular Volume 94.4 fl (80-94); Mean Platelet Volume 10.7 fL (7.4-10.4); Monocytes # 1.1 10^3/uL (0.2-0.9); Monocytes % 10.2 %; Neutrophils % 73.1 %; Nucleated Red Blood Cells % 0 %; Platelet Count 191 10^3/cmm (130-400); Red Blood Count 4.64 10^6/uL (4.1-5.3); Red Cell Distribution Width 13.1 % (12.1-15.1); White Blood Count 10.9 10^3/uL (4.0-10.0)
[2022-02-25 10:03] LABS: Alanine Aminotransferase 30 U/L (0-41); Albumin Level 4.4 g/dL (3.5-5.2); Alkaline Phosphatase 66 IU/L (40-130); Anion Gap 15.6 (5-19); Aspartate Amino Transferase 20 U/L (0-40); Blood Urea Nitrogen 11 mg/dL (6-20); Calcium 10.3 mg/dL (8.5-10.5); Carbon Dioxide 23 mmol/L (22-29); Chloride 99 mmol/L (98-107); Globulin 2.3 g/dL (1.3-4.6); Glucose 117 mg/dL (65-115); Lactate Dehydrogenase 184 U/L (135-225); Osmolality Calculated 278 mOsm/kg (285-295); Potassium 3.6 mmol/L (3.5-5.1); Sodium 134 mmol/L (136-145); Total Bilirubin 0.3 mg/dL (0.15-1.2); Total Protein 6.7 g/dL (6.6-8.7)
[2022-03-04 12:34] VITALS: BP 172/98; PULSE 84; RESP 16; TEMP 36.2; O2SAT 95
[2022-03-04] MEDS: sodium chloride 0.9% 250 ML 100 ML IV (12:52)
[2022-03-04] MEDS: SODIUM CHLORIDE 0.9% IV (12:52)
[2022-03-04] MEDS: [UNRECOGNIZED DRUG - OTHER] IV (12:52)
[2022-03-04 13:38] VITALS: BP 155/78; PULSE 73; RESP 16; TEMP 36.6; O2SAT 94
== END 2022-03-08 10:29 | disposition home or self-care (01) ==
PROVIDERS: PCP Nurse Practitioner Family; Visit Provider Internal Medicine Medical Oncology
DX: M31.10 Thrombotic microangiopathy, unspecified (principal); N18.6 End stage renal disease; Z99.2 Dependence on renal dialysis; E11.22 Type 2 diabetes mellitus with diabetic chronic kidney disease; I12.0 Hypertensive chronic kidney disease with stage 5 chronic kidney disease or end stage renal disease; Z79.4 Long term (current) use of insulin; Z79.899 Other long term (current) drug therapy; Z51.12 Encounter for antineoplastic immunotherapy
CPT/HCPCS: 36415; 80053; 83615; 85025; 96413; 99215; J1303; J7050

== ENCOUNTER 2022-04-29 10:11 | Oncology outpatient (recurring) (ONCR) | payer MEDICARE, MEDICAID, SELFPAY ==
[2022-04-29 10:44] VITALS: BP 156/77; PULSE 89; RESP 16; TEMP 36.2; O2SAT 97
== END 2022-04-30 10:36 | disposition home or self-care (01) ==
PROVIDERS: PCP Nurse Practitioner Family; Visit Provider Internal Medicine Medical Oncology
DX: M31.10 Thrombotic microangiopathy, unspecified (principal); Z79.899 Other long term (current) drug therapy
CPT/HCPCS: 96365; J1303

== ENCOUNTER 2022-06-24 08:28 | Oncology outpatient (recurring) (ONCR) | payer MEDICARE, MEDICAID, SELFPAY ==
[2022-06-24 09:00] LABS: Basophils % 0.1 %; Eosinophils # 0.2 10^3/uL (0.0-0.8); Eosinophils % 1.6 %; Hematocrit 41.9 % (42.0-52.0); Hemoglobin 13.5 g/dL (11.7-16.6); Lymphocytes # 1.2 10^3/uL (0.8-4.8); Lymphocytes % 8.6 %; Mean Corpuscular HGB Conc 32.2 g/dL (30.0-36.0); Mean Corpuscular Hemoglobin 30.1 pg (28.0-34.0); Mean Corpuscular Volume 93.5 fl (80-94); Mean Platelet Volume 11.1 fL (7.4-10.4); Monocytes # 1.1 10^3/uL (0.2-0.9); Monocytes % 8.3 %; Neutrophils % 80.9 %; Nucleated Red Blood Cells % 0 %; Platelet Count 227 10^3/cmm (130-400); Red Blood Count 4.48 10^6/uL (4.1-5.3); Red Cell Distribution Width 13.4 % (12.1-15.1); White Blood Count 13.6 10^3/uL (4.0-10.0)
[2022-06-24 09:20] LABS: Alanine Aminotransferase 16 U/L (0-41); Albumin Level 3.7 g/dL (3.5-5.2); Alkaline Phosphatase 60 U/L (40-130); Aspartate Amino Transferase 17 U/L (0-40); Blood Urea Nitrogen 24 mg/dL (6-20); Calcium 10.6 mg/dL (8.5-10.5); Carbon Dioxide 23 mmol/L (22-29); Chloride 104 mmol/L (98-107); Globulin 2.3 g/dL (1.3-4.6); Glomerular Filtration Rate 42.4 mL/min (90-130); Glucose 178 mg/dL (65-115); Osmolality Calculated 292 mOsm/kg (285-295); Sodium 137 mmol/L (136-145); Total Bilirubin 0.2 mg/dL (0.15-1.2)
[2022-06-24 09:22] LABS: Lactate Dehydrogenase 196 U/L (135-225)
[2022-06-24 11:52] VITALS: BP 117/67; PULSE 66; RESP 18; TEMP 36.5; O2SAT 94
== END 2022-06-25 09:22 | disposition home or self-care (01) ==
PROVIDERS: Nurse Practitioner; PCP Nurse Practitioner Family; Visit Provider Internal Medicine Medical Oncology
DX: M31.10 Thrombotic microangiopathy, unspecified (principal); N18.6 End stage renal disease; Z99.2 Dependence on renal dialysis; E11.22 Type 2 diabetes mellitus with diabetic chronic kidney disease; I12.0 Hypertensive chronic kidney disease with stage 5 chronic kidney disease or end stage renal disease; F17.210 Nicotine dependence, cigarettes, uncomplicated; Z94.0 Kidney transplant status; Z79.84 Long term (current) use of oral hypoglycemic drugs; Z79.899 Other long term (current) drug therapy
CPT/HCPCS: 80053; 80197; 83615; 85025; 96413; 99214; J1303

== ENCOUNTER 2022-08-19 10:36 | Oncology outpatient (recurring) (ONCR) | payer MEDICARE, MEDICAID, SELFPAY ==
[2022-08-19 10:43] VITALS: BP 151/83; PULSE 81; RESP 18; TEMP 37; O2SAT 96
[2022-08-19 10:56] LABS: Basophils # 0.1 10^3/uL (0.0-0.1); Basophils % 0.4 %; Eosinophils # 0.3 10^3/uL (0.0-0.8); Eosinophils % 2.2 %; Lymphocytes # 1.2 10^3/uL (0.8-4.8); Mean Corpuscular HGB Conc 32.5 g/dL (30.0-36.0); Mean Corpuscular Hemoglobin 30.7 pg (28.0-34.0); Mean Corpuscular Volume 94.6 fl (80-94); Mean Platelet Volume 10.8 fL (7.4-10.4); Monocytes % 7.9 %; Neutrophils # 10.39 10^3/uL (1.8-7.7); Neutrophils % 80.2 %; Nucleated Red Blood Cells % 0 %; Platelet Count 197 10^3/cmm (130-400); Red Blood Count 4.23 10^6/uL (4.1-5.3); Red Cell Distribution Width 13.5 % (12.1-15.1)
[2022-08-19 11:32] LABS: Alanine Aminotransferase 16 U/L (0-41); Albumin Level 3.9 g/dL (3.5-5.2); Alkaline Phosphatase 49 U/L (40-130); Aspartate Amino Transferase 16 U/L (0-40); Blood Urea Nitrogen 22 mg/dL (6-20); Calcium 10.4 mg/dL (8.5-10.5); Carbon Dioxide 25 mmol/L (22-29); Chloride 100 mmol/L (98-107); Creatinine Clr Calc Pharmacy 57.8774; Globulin 2.4 g/dL (1.3-4.6); Glomerular Filtration Rate 42.2 mL/min (90-130); Glucose 127 mg/dL (65-115); Osmolality Calculated 285 mOsm/kg (285-295); Sodium 135 mmol/L (136-145); Total Bilirubin 0.3 mg/dL (0.15-1.2); Total Protein 6.3 g/dL (6.6-8.7)
[2022-08-19] MEDS: sodium chloride 0.9% 250 ML 75 ML IV (12:42)
[2022-08-19] MEDS: SODIUM CHLORIDE 0.9% IV (12:43)
[2022-08-19] MEDS: [UNRECOGNIZED DRUG - OTHER] IV (12:43)
[2022-08-19 13:25] VITALS: PULSE 71; RESP 18; TEMP 36.8; O2SAT 95
== END 2022-08-20 09:15 | disposition home or self-care (01) ==
PROVIDERS: PCP Nurse Practitioner Family; Visit Provider Internal Medicine Medical Oncology
DX: M31.10 Thrombotic microangiopathy, unspecified (principal); E13.22 Other specified diabetes mellitus with diabetic chronic kidney disease; I12.0 Hypertensive chronic kidney disease with stage 5 chronic kidney disease or end stage renal disease; N18.6 End stage renal disease; Z99.2 Dependence on renal dialysis; Z94.0 Kidney transplant status; F17.210 Nicotine dependence, cigarettes, uncomplicated; Z79.4 Long term (current) use of insulin; Z79.899 Other long term (current) drug therapy
CPT/HCPCS: 80053; 85025; 96365; J1303; J7050

== ENCOUNTER 2022-10-14 08:51 | Oncology outpatient (recurring) (ONCR) | payer MEDICARE, MEDICAID, SELFPAY ==
[2022-10-14 09:55] LABS: Basophils # 0.1 10^3/uL (0.0-0.1); Basophils % 0.5 %; Eosinophils # 0.3 10^3/uL (0.0-0.8); Eosinophils % 2.3 %; Hematocrit 40.1 % (42.0-52.0); Hemoglobin 12.9 g/dL (11.7-16.6); Lymphocytes # 1.5 10^3/uL (0.8-4.8); Lymphocytes % 12.9 %; Mean Corpuscular HGB Conc 32.2 g/dL (30.0-36.0); Mean Corpuscular Hemoglobin 30.5 pg (28.0-34.0); Mean Corpuscular Volume 94.8 fl (80-94); Mean Platelet Volume 10.7 fL (7.4-10.4); Monocytes % 9.3 %; Neutrophils # 8.34 10^3/uL (1.8-7.7); Neutrophils % 74.6 %; Nucleated Red Blood Cells % 0 %; Platelet Count 196 10^3/cmm (130-400); Red Blood Count 4.23 10^6/uL (4.1-5.3); Red Cell Distribution Width 13.2 % (12.1-15.1); White Blood Count 11.2 10^3/uL (4.0-10.0)
[2022-10-14 10:12] LABS: Alanine Aminotransferase 17 U/L (0-41); Albumin Level 3.9 g/dL (3.5-5.2); Alkaline Phosphatase 56 U/L (40-130); Anion Gap 13.7 (5-19); Aspartate Amino Transferase 19 U/L (0-40); Blood Urea Nitrogen 17 mg/dL (6-20); Calcium 10.1 mg/dL (8.5-10.5); Carbon Dioxide 23 mmol/L (22-29); Chloride 100 mmol/L (98-107); Globulin 2.7 g/dL (1.3-4.6); Glomerular Filtration Rate 39.5 mL/min (90-130); Glucose 119 mg/dL (65-115); Osmolality Calculated 279 mOsm/kg (285-295); Potassium 3.7 mmol/L (3.5-5.1); Sodium 133 mmol/L (136-145); Total Bilirubin 0.2 mg/dL (0.15-1.2); Total Protein 6.6 g/dL (6.6-8.7)
[2022-10-14 10:23] VITALS: BMI 28.5
[2022-10-14] MEDS: sodium chloride 0.9% 250 ML 75 ML IV (11:30)
[2022-10-14] MEDS: [UNRECOGNIZED DRUG - OTHER] IV (11:55)
[2022-10-14] MEDS: SODIUM CHLORIDE 0.9% IV (11:55)
[2022-10-14 12:44] VITALS: BP 128/69; PULSE 72; RESP 18; TEMP 37.3; O2SAT 92
== END 2022-10-15 10:54 | disposition home or self-care (01) ==
PROVIDERS: PCP Nurse Practitioner Family; Visit Provider Internal Medicine Medical Oncology
DX: Z51.12 Encounter for antineoplastic immunotherapy (principal); M31.10 Thrombotic microangiopathy, unspecified; N18.6 End stage renal disease; Z94.0 Kidney transplant status; I12.0 Hypertensive chronic kidney disease with stage 5 chronic kidney disease or end stage renal disease; F17.210 Nicotine dependence, cigarettes, uncomplicated; Z79.899 Other long term (current) drug therapy
CPT/HCPCS: 80053; 85025; 96413; 99214; J1303; J7050

== ENCOUNTER 2022-12-09 09:27 | Oncology outpatient (recurring) (ONCR) | payer MEDICARE, MEDICAID, SELFPAY ==
[2022-12-09 09:40] VITALS: BMI 28.5
[2022-12-09 10:06] LABS: Basophils # 0.1 10^3/uL (0.0-0.1); Basophils % 0.4 %; Eosinophils # 0.2 10^3/uL (0.0-0.8); Eosinophils % 1.9 %; Hemoglobin 12.7 g/dL (11.7-16.6); Lymphocytes # 1.2 10^3/uL (0.8-4.8); Lymphocytes % 10.4 %; Mean Corpuscular HGB Conc 31.8 g/dL (30.0-36.0); Mean Corpuscular Hemoglobin 30.4 pg (28.0-34.0); Mean Corpuscular Volume 95.7 fl (80-94); Mean Platelet Volume 10.6 fL (7.4-10.4); Monocytes # 1.1 10^3/uL (0.2-0.9); Monocytes % 9.7 %; Neutrophils # 8.65 10^3/uL (1.8-7.7); Neutrophils % 77.2 %; Nucleated Red Blood Cells % 0 %; Platelet Count 186 10^3/cmm (130-400); Red Blood Count 4.18 10^6/uL (4.1-5.3); Red Cell Distribution Width 13.1 % (12.1-15.1); White Blood Count 11.2 10^3/uL (4.0-10.0)
[2022-12-09 10:24] LABS: Alanine Aminotransferase 14 U/L (0-41); Albumin Level 3.7 g/dL (3.5-5.2); Alkaline Phosphatase 39 U/L (40-130); Anion Gap 12.4 (5-19); Aspartate Amino Transferase 17 U/L (0-40); Blood Urea Nitrogen 17 mg/dL (6-20); Carbon Dioxide 27 mmol/L (22-29); Chloride 104 mmol/L (98-107); Globulin 2.4 g/dL (1.3-4.6); Glomerular Filtration Rate 48.8 mL/min (90-130); Glucose 142 mg/dL (65-115); Osmolality Calculated 292 mOsm/kg (285-295); Potassium 4.4 mmol/L (3.5-5.1); Sodium 139 mmol/L (136-145); Total Bilirubin 0.3 mg/dL (0.15-1.2); Total Protein 6.1 g/dL (6.6-8.7)
[2022-12-09] MEDS: sodium chloride 0.9% 250 ML 75 ML IV (11:19)
[2022-12-09] MEDS: SODIUM CHLORIDE 0.9% IV (11:48)
[2022-12-09] MEDS: [UNRECOGNIZED DRUG - OTHER] IV (11:48)
[2022-12-09 12:36] VITALS: BP 130/67; PULSE 69; RESP 18; TEMP 36.1; O2SAT 94
== END 2022-12-20 23:59 | disposition home or self-care (01) ==
PROVIDERS: PCP Nurse Practitioner Family; Visit Provider Internal Medicine Medical Oncology
DX: M31.10 Thrombotic microangiopathy, unspecified (principal); Z51.81 Encounter for therapeutic drug level monitoring; Z79.899 Other long term (current) drug therapy
CPT/HCPCS: 80053; 85025; 96365; J1303; J7050

== ENCOUNTER 2023-02-03 08:49 | Oncology outpatient (recurring) (ONCR) | payer MEDICARE, MEDICAID, SELFPAY ==
[2023-02-03 09:11] VITALS: BMI 29.2
[2023-02-03 09:16] LABS: Basophils # 0.1 10^3/uL (0.0-0.1); Basophils % 0.4 %; Eosinophils # 0.3 10^3/uL (0.0-0.8); Eosinophils % 2.4 %; Hematocrit 39.5 % (42.0-52.0); Hemoglobin 12.8 g/dL (11.7-16.6); Lymphocytes # 1.5 10^3/uL (0.8-4.8); Lymphocytes % 13.2 %; Mean Corpuscular HGB Conc 32.4 g/dL (30.0-36.0); Mean Corpuscular Hemoglobin 30.3 pg (28.0-34.0); Mean Corpuscular Volume 93.4 fl (80-94); Mean Platelet Volume 10.5 fL (7.4-10.4); Monocytes # 1.1 10^3/uL (0.2-0.9); Monocytes % 9.6 %; Neutrophils # 8.44 10^3/uL (1.8-7.7); Neutrophils % 73.9 %; Nucleated Red Blood Cells % 0 %; Platelet Count 195 10^3/cmm (130-400); Red Blood Count 4.23 10^6/uL (4.1-5.3); Red Cell Distribution Width 13.2 % (12.1-15.1); White Blood Count 11.4 10^3/uL (4.0-10.0)
[2023-02-03 09:20] VITALS: BP 150/76; PULSE 72; RESP 18; TEMP 36.4; O2SAT 96
[2023-02-03 09:39] LABS: Alanine Aminotransferase 15 U/L (0-41); Albumin Level 4.3 g/dL (3.5-5.2); Alkaline Phosphatase 52 U/L (40-130); Blood Urea Nitrogen 20 mg/dL (6-20); Carbon Dioxide 23 mmol/L (22-29); Chloride 101 mmol/L (98-107); Globulin 2.5 g/dL (1.3-4.6); Glomerular Filtration Rate 42.2 mL/min (90-130); Glucose 97 mg/dL (65-115); Osmolality Calculated 287 mOsm/kg (285-295); Sodium 137 mmol/L (136-145); Total Bilirubin 0.2 mg/dL (0.15-1.2); Total Protein 6.8 g/dL (6.6-8.7)
[2023-02-03 09:43] LABS: Aspartate Amino Transferase 21 U/L (0-40); Lactate Dehydrogenase 253 U/L (135-225)
[2023-02-03] MEDS: sodium chloride 0.9% (100 ml) 100 ML 50 ML (11:35)
[2023-02-03 12:32] VITALS: BP 141/73; PULSE 81; RESP 18; TEMP 36.9; O2SAT 95
== END 2023-02-03 23:59 | disposition home or self-care (01) ==
PROVIDERS: PCP Nurse Practitioner Family; Visit Provider Internal Medicine Medical Oncology
DX: M31.10 Thrombotic microangiopathy, unspecified (principal); Z51.81 Encounter for therapeutic drug level monitoring; Z79.899 Other long term (current) drug therapy; N18.6 End stage renal disease; Z99.2 Dependence on renal dialysis; I12.0 Hypertensive chronic kidney disease with stage 5 chronic kidney disease or end stage renal disease; F17.210 Nicotine dependence, cigarettes, uncomplicated
CPT/HCPCS: 80053; 80197; 83615; 85025; 96413; 99214; J1303

== ENCOUNTER 2023-03-31 10:55 | Oncology outpatient (recurring) (ONCR) | payer MEDICARE, MEDICAID, SELFPAY ==
[2023-03-31 10:58] VITALS: BP 142/72; PULSE 67; RESP 18; TEMP 36.6; O2SAT 98
[2023-03-31 11:10] LABS: Basophils % 0.4 %; Eosinophils # 0.1 10^3/uL (0.0-0.8); Eosinophils % 1.1 %; Hematocrit 36.9 % (42.0-52.0); Hemoglobin 11.8 g/dL (11.7-16.6); Lymphocytes # 0.8 10^3/uL (0.8-4.8); Lymphocytes % 8.3 %; Mean Corpuscular Volume 93.9 fl (80-94); Mean Platelet Volume 10.6 fL (7.4-10.4); Monocytes # 0.8 10^3/uL (0.2-0.9); Monocytes % 8.6 %; Neutrophils # 7.79 10^3/uL (1.8-7.7); Neutrophils % 81.3 %; Nucleated Red Blood Cells % 0 %; Platelet Count 182 10^3/cmm (130-400); Red Blood Count 3.93 10^6/uL (4.1-5.3); White Blood Count 9.6 10^3/uL (4.0-10.0)
[2023-03-31 11:27] LABS: Alanine Aminotransferase 13 U/L (0-41); Albumin Level 4.2 g/dL (3.5-5.2); Alkaline Phosphatase 48 U/L (40-130); Anion Gap 12.1 (5-19); Aspartate Amino Transferase 15 U/L (0-40); Blood Urea Nitrogen 20 mg/dL (6-20); Calcium 9.6 mg/dL (8.5-10.5); Carbon Dioxide 24 mmol/L (22-29); Chloride 97 mmol/L (98-107); Glomerular Filtration Rate 37.1 mL/min (90-130); Glucose 171 mg/dL (65-115); Lactate Dehydrogenase 155 U/L (135-225); Osmolality Calculated 275 mOsm/kg (285-295); Potassium 4.1 mmol/L (3.5-5.1); Sodium 129 mmol/L (136-145); Total Bilirubin 0.2 mg/dL (0.15-1.2); Total Protein 6.2 g/dL (6.6-8.7)
[2023-03-31] MEDS: [UNRECOGNIZED DRUG - OTHER] IV (12:00)
[2023-03-31] MEDS: SODIUM CHLORIDE 0.9% IV (12:00)
[2023-03-31 12:33] VITALS: BP 150/75; PULSE 66; RESP 18; TEMP 36.2; O2SAT 94
== END 2023-03-31 23:59 | disposition home or self-care (01) ==
LOC: ONCMED 10:55
PROVIDERS: PCP Nurse Practitioner Family; Visit Provider Internal Medicine Medical Oncology
DX: M31.10 Thrombotic microangiopathy, unspecified (principal)
CPT/HCPCS: 80053; 80197; 83615; 85025; 96413; J1303

== ENCOUNTER 2023-05-02 13:35 | Outpatient (CLI) | payer MEDICARE, MEDICAID, SELFPAY ==
[2023-05-02 14:28] LABS: Basophils % 0.4 %; Eosinophils # 0.2 10^3/uL (0.0-0.8); Eosinophils % 1.9 %; Hematocrit 35.3 % (42.0-52.0); Hemoglobin 11.5 g/dL (11.7-16.6); Lymphocytes % 8.9 %; Mean Corpuscular HGB Conc 32.6 g/dL (30.0-36.0); Mean Corpuscular Hemoglobin 30.7 pg (28.0-34.0); Mean Corpuscular Volume 94.4 fl (80-94); Mean Platelet Volume 10.7 fL (7.4-10.4); Monocytes % 8.4 %; Neutrophils # 9.08 10^3/uL (1.8-7.7); Nucleated Red Blood Cells % 0 %; Platelet Count 186 10^3/cmm (130-400); Red Blood Count 3.74 10^6/uL (4.1-5.3); Red Cell Distribution Width 13.3 % (12.1-15.1); White Blood Count 11.3 10^3/uL (4.0-10.0)
[2023-05-02 14:53] LABS: Creatinine Urine, Random 100 mg/dL (39-259)
[2023-05-02 15:12] LABS: Microalbum Creatinine Ratio Ur 470 mg/dL (0-20); Microalbumin Random Urine 47 ug/dL (0-20)
[2023-05-02 15:29] LABS: Calcium 9.8 mg/dL (8.5-10.5); Parathyroid Hormone 140.5 pg/mL (15-65)
[2023-05-02 15:32] LABS: 25 Hydroxy Vitamin D 24 ng/mL (30-100); Alanine Aminotransferase 12 U/L (0-41); Alkaline Phosphatase 47 U/L (40-130); Anion Gap 15.5 (5-19); Aspartate Amino Transferase 16 U/L (0-40); Blood Urea Nitrogen 23 mg/dL (6-20); Calcium 9.7 mg/dL (8.5-10.5); Carbon Dioxide 22 mmol/L (22-29); Chloride 103 mmol/L (98-107); Globulin 1.6 g/dL (1.3-4.6); Glomerular Filtration Rate 37.1 mL/min (90-130); Glucose 160 mg/dL (65-115); Magnesium 1.2 mg/dL (1.7-2.3); Osmolality Calculated 289 mOsm/kg (285-295); Potassium 4.5 mmol/L (3.5-5.1); Sodium 136 mmol/L (136-145); Total Bilirubin 0.2 mg/dL (0.15-1.2); Total Protein 5.6 g/dL (6.6-8.7)
[2023-05-05 17:44] LABS: BK VIRUS DNA, QN PCR NOT DETECTED copies/mL; BK VIRUS DNA, QN RT PCR NOT DETECTED Log cps/mL; SOURCE PLASMA
== END 2023-05-02 13:36 | disposition home or self-care (01) ==
PROVIDERS: PCP Nurse Practitioner Family; Visit Provider Internal Medicine Nephrology
DX: Z94.0 Kidney transplant status (principal); Z79.899 Other long term (current) drug therapy
CPT/HCPCS: 36415; 80053; 80197; 82044; 82306; 82310; 83735; 83970; 85025; 87798

== ENCOUNTER 2023-05-27 10:13 | Oncology outpatient (recurring) (ONCR) | payer MEDICARE, MEDICAID, SELFPAY ==
[2023-05-27 10:14] VITALS: BMI 29.4
[2023-05-27 10:15] VITALS: BP 155/78; PULSE 86; RESP 18; TEMP 36.8; O2SAT 98
[2023-05-27 10:36] LABS: Basophils # 0.1 10^3/uL (0.0-0.1); Basophils % 0.6 %; Eosinophils # 0.2 10^3/uL (0.0-0.8); Eosinophils % 1.9 %; Hematocrit 37.9 % (37-53); Lymphocytes # 1.2 10^3/uL (0.8-4.8); Lymphocytes % 13.4 %; Mean Corpuscular HGB Conc 31.9 g/dL (30-55); Mean Platelet Volume 10.4 fL (7.4-10.4); Monocytes % 11.6 %; Neutrophils # 6.35 10^3/uL (1.8-7.7); Nucleated Red Blood Cells % 0 %; Platelet Count 191 10^3/cmm (157-399); Red Blood Count 4.03 10^6/uL (3.85-5.65); Red Cell Distribution Width 13.2 % (12.1-15.1); White Blood Count 8.81 10^3/uL (3.29-11.43)
[2023-05-27 10:55] LABS: Alanine Aminotransferase 13 U/L (0-41); Albumin Level 4.3 g/dL (3.5-5.2); Alkaline Phosphatase 53 U/L (40-130); Blood Urea Nitrogen 21 mg/dL (6-20); Calcium 9.8 mg/dL (8.5-10.5); Carbon Dioxide 23 mmol/L (22-29); Chloride 104 mmol/L (98-107); Globulin 2.2 g/dL (1.3-4.6); Glomerular Filtration Rate 42.2 mL/min (90-130); Glucose 200 mg/dL (65-115); Osmolality Calculated 293 mOsm/kg (285-295); Sodium 137 mmol/L (136-145); Total Bilirubin 0.2 mg/dL (0.15-1.2); Total Protein 6.5 g/dL (6.6-8.7)
[2023-05-27 10:57] LABS: Anion Gap 14.1 (5-19); Aspartate Amino Transferase 17 U/L (0-40); Lactate Dehydrogenase 203 U/L (135-225); Potassium 4.1 mmol/L (3.5-5.1)
[2023-05-27] MEDS: SODIUM CHLORIDE 0.9% IV (12:43)
[2023-05-27] MEDS: [UNRECOGNIZED DRUG - OTHER] IV (12:43)
[2023-05-27 13:45] VITALS: BP 149/67; PULSE 77; RESP 18; TEMP 36.6; O2SAT 98
== END 2023-05-27 23:59 | disposition home or self-care (01) ==
PROVIDERS: PCP Nurse Practitioner Family; Visit Provider Internal Medicine Medical Oncology
DX: M31.10 Thrombotic microangiopathy, unspecified (principal); Z51.81 Encounter for therapeutic drug level monitoring; Z79.899 Other long term (current) drug therapy; F17.210 Nicotine dependence, cigarettes, uncomplicated; N18.6 End stage renal disease; Z94.0 Kidney transplant status; Z53.9 Procedure and treatment not carried out, unspecified reason
CPT/HCPCS: 80053; 80197; 83615; 85025; 96413; 99214; J1303

== ENCOUNTER 2023-07-22 10:47 | Oncology outpatient (recurring) (ONCR) | payer MEDICARE, MEDICAID, SELFPAY ==
[2023-07-22 11:15] VITALS: BP 154/83; PULSE 81; RESP 17; TEMP 37.1; O2SAT 96
[2023-07-22 11:16] VITALS: BMI 29.4
[2023-07-22 11:38] LABS: Hematocrit 38.1 % (37-53); Mean Corpuscular HGB Conc 32.5 g/dL (30-55); Mean Corpuscular Hemoglobin 30.4 pg (27-33); Mean Corpuscular Volume 93.4 fl (82-101); Mean Platelet Volume 10.5 fL (7.4-10.4); Platelet Count 197 10^3/cmm (157-399); Red Blood Count 4.08 10^6/uL (3.85-5.65); Red Cell Distribution Width 12.9 % (12.1-15.1); White Blood Count 12.29 10^3/uL (3.29-11.43)
[2023-07-22 11:57] LABS: Alanine Aminotransferase 17 U/L (0-41); Albumin Level 4.2 g/dL (3.5-5.2); Alkaline Phosphatase 60 U/L (40-130); Aspartate Amino Transferase 18 U/L (0-40); Blood Urea Nitrogen 15 mg/dL (6-20); Carbon Dioxide 23 mmol/L (22-29); Chloride 102 mmol/L (98-107); Globulin 2.3 g/dL (1.3-4.6); Glomerular Filtration Rate 42.2 mL/min (90-130); Glucose 229 mg/dL (65-115); Osmolality Calculated 288 mOsm/kg (285-295); Sodium 135 mmol/L (136-145); Total Bilirubin 0.2 mg/dL (0.15-1.2); Total Protein 6.5 g/dL (6.6-8.7)
[2023-07-22 12:17] LABS: Absolute Eosinophils 0.2 10^3/cmm (0.0-0.7); Absolute Neutrophil 10.4 10^3/cmm (1.4-6.5); Absolute Segmented Neutrophil 10.3 10/cmm (1.6-7.1); Band Neutrophils Absolute 0.1 10^3/cmm (0.0-1.2); Eosinophils 2 %; Lymphocytes 8 %; Lymphocytes Absolute 1.2 10^3/cmm (1.2-3.4); Monocytes Absolute 0.4 10^3/cmm (0.1-0.6); Platelet Estimate Decreased (Normal); Segmented Neutrophils 84 %; Total Cells Counted 100 (0-100)
[2023-07-22 12:19] LABS: Burr Cells 2+
[2023-07-22] MEDS: SODIUM CHLORIDE 0.9% IV (13:32)
[2023-07-22] MEDS: sodium chloride 0.9% 250 ML 75 ML IV (13:32)
[2023-07-22] MEDS: [UNRECOGNIZED DRUG - OTHER] IV (13:32)
[2023-07-22 14:12] VITALS: BP 152/75; PULSE 78; RESP 16; TEMP 36.6; O2SAT 97
== END 2023-07-22 23:59 | disposition home or self-care (01) ==
LOC: ONCMED 10:47
PROVIDERS: PCP Nurse Practitioner Family; Visit Provider Internal Medicine Medical Oncology
DX: M31.10 Thrombotic microangiopathy, unspecified (principal)
CPT/HCPCS: 80053; 80197; 85007; 85027; 96413; J1303; J7050

== ENCOUNTER 2023-09-16 10:47 | Oncology outpatient (recurring) (ONCR) | payer MEDICARE, MEDICAID, SELFPAY ==
[2023-09-16 10:52] VITALS: BP 172/84; PULSE 64; RESP 16; TEMP 37.1; O2SAT 97
[2023-09-16 11:05] LABS: Basophils # 0.1 10^3/uL (0.0-0.1); Basophils % 0.3 %; Eosinophils # 0.2 10^3/uL (0.0-0.8); Eosinophils % 1.4 %; Hematocrit 40.5 % (37-53); Lymphocytes # 1.3 10^3/uL (0.8-4.8); Lymphocytes % 8.9 %; Mean Corpuscular HGB Conc 32.3 g/dL (30-55); Mean Corpuscular Volume 92.9 fl (82-101); Mean Platelet Volume 10.3 fL (7.4-10.4); Monocytes # 1.1 10^3/uL (0.2-0.9); Monocytes % 7.5 %; Neutrophils # 11.71 10^3/uL (1.8-7.7); Neutrophils % 81.6 %; Nucleated Red Blood Cells % 0 %; Platelet Count 196 10^3/cmm (157-399); Red Blood Count 4.36 10^6/uL (3.85-5.65); Red Cell Distribution Width 12.9 % (12.1-15.1); White Blood Count 14.35 10^3/uL (3.29-11.43)
[2023-09-16 11:28] LABS: Alanine Aminotransferase 13 U/L (0-41); Albumin Level 4.3 g/dL (3.5-5.2); Alkaline Phosphatase 58 U/L (40-130); Anion Gap 13.3 (5-19); Aspartate Amino Transferase 16 U/L (0-40); Blood Urea Nitrogen 19 mg/dL (6-20); Calcium 10.7 mg/dL (8.5-10.5); Carbon Dioxide 26 mmol/L (22-29); Chloride 101 mmol/L (98-107); Globulin 2.4 g/dL (1.3-4.6); Glomerular Filtration Rate 34.9 mL/min (90-130); Glucose 139 mg/dL (65-115); Lactate Dehydrogenase 173 U/L (135-225); Osmolality Calculated 287 mOsm/kg (285-295); Potassium 4.3 mmol/L (3.5-5.1); Sodium 136 mmol/L (136-145); Total Bilirubin 0.5 mg/dL (0.15-1.2); Total Protein 6.7 g/dL (6.6-8.7)
[2023-09-16] MEDS: sodium chloride 0.9% 250 ML 50 ML IV (13:35)
[2023-09-16 15:27] VITALS: BP 142/67; PULSE 71; RESP 17; TEMP 36.8; O2SAT 94
== END 2023-09-16 23:59 | disposition home or self-care (01) ==
PROVIDERS: PCP Nurse Practitioner Family; Visit Provider Internal Medicine Medical Oncology
DX: M31.10 Thrombotic microangiopathy, unspecified (principal); Z51.81 Encounter for therapeutic drug level monitoring; Z79.899 Other long term (current) drug therapy
CPT/HCPCS: 80053; 80197; 83615; 85025; 96413; 99214; J1303; J7050

== ENCOUNTER 2023-11-11 10:33 | Oncology outpatient (recurring) (ONCR) | payer MEDICARE, MEDICAID, SELFPAY ==
[2023-11-11 10:45] LABS: Basophils % 0.4 %; Eosinophils # 0.2 10^3/uL (0.0-0.8); Eosinophils % 1.8 %; Hematocrit 40.1 % (37-53); Lymphocytes # 1.5 10^3/uL (0.8-4.8); Lymphocytes % 14.6 %; Mean Corpuscular HGB Conc 31.9 g/dL (30-55); Mean Corpuscular Hemoglobin 30.1 pg (27-33); Mean Corpuscular Volume 94.4 fl (82-101); Mean Platelet Volume 10.1 fL (7.4-10.4); Neutrophils # 7.39 10^3/uL (1.8-7.7); Neutrophils % 72.9 %; Nucleated Red Blood Cells % 0 %; Platelet Count 185 10^3/cmm (157-399); Red Blood Count 4.25 10^6/uL (3.85-5.65); Red Cell Distribution Width 13.2 % (12.1-15.1); White Blood Count 10.13 10^3/uL (3.29-11.43)
[2023-11-11 11:05] LABS: Alanine Aminotransferase 11 U/L (0-41); Albumin Level 4.2 g/dL (3.5-5.2); Alkaline Phosphatase 61 U/L (40-130); Anion Gap 15.3 (5-19); Aspartate Amino Transferase 14 U/L (0-40); Blood Urea Nitrogen 20 mg/dL (6-20); Carbon Dioxide 23 mmol/L (22-29); Chloride 102 mmol/L (98-107); Globulin 2.6 g/dL (1.3-4.6); Glomerular Filtration Rate 31.2 mL/min (90-130); Glucose 125 mg/dL (65-115); Osmolality Calculated 286 mOsm/kg (285-295); Potassium 4.3 mmol/L (3.5-5.1); Sodium 136 mmol/L (136-145); Total Bilirubin 0.2 mg/dL (0.15-1.2); Total Protein 6.8 g/dL (6.6-8.7)
[2023-11-11 12:53] LABS: Lactate Dehydrogenase 183 U/L (135-225)
[2023-11-11] MEDS: sodium chloride 0.9% 250 ML 75 ML IV (12:54)
[2023-11-11] MEDS: [UNRECOGNIZED DRUG - OTHER] IV (13:22)
[2023-11-11] MEDS: SODIUM CHLORIDE 0.9% IV (13:22)
[2023-11-11 13:56] VITALS: BP 145/75; PULSE 75; RESP 16; TEMP 36.7; O2SAT 98
== END 2023-11-11 23:59 | disposition home or self-care (01) ==
PROVIDERS: Internal Medicine; Nurse Practitioner Family; PCP Nurse Practitioner Family; Visit Provider Internal Medicine Medical Oncology
DX: M31.10 Thrombotic microangiopathy, unspecified (principal); Z51.81 Encounter for therapeutic drug level monitoring; Z79.899 Other long term (current) drug therapy; F17.210 Nicotine dependence, cigarettes, uncomplicated; N18.9 Chronic kidney disease, unspecified; Z94.0 Kidney transplant status; Z79.621 Long term (current) use of calcineurin inhibitor; Z79.52 Long term (current) use of systemic steroids; Z79.620 Long term (current) use of immunosuppressive biologic; Z53.9 Procedure and treatment not carried out, unspecified reason
CPT/HCPCS: 80053; 80197; 83615; 85025; 96413; 99214; J1303; J7050

== ENCOUNTER 2024-01-05 10:51 | Oncology outpatient (recurring) (ONCR) | payer MEDICARE, MEDICAID, SELFPAY ==
[2024-01-05 11:31] LABS: Basophils # 0.1 10^3/uL (0.0-0.1); Basophils % 0.5 %; Eosinophils # 0.2 10^3/uL (0.0-0.8); Eosinophils % 1.9 %; Hematocrit 39.3 % (37-53); Lymphocytes # 1.2 10^3/uL (0.8-4.8); Lymphocytes % 10.9 %; Mean Corpuscular HGB Conc 32.8 g/dL (30-55); Mean Corpuscular Hemoglobin 30.4 pg (27-33); Mean Corpuscular Volume 92.7 fl (82-101); Mean Platelet Volume 10.6 fL (7.4-10.4); Monocytes % 9.1 %; Neutrophils # 8.61 10^3/uL (1.8-7.7); Neutrophils % 77.2 %; Nucleated Red Blood Cells % 0 %; Platelet Count 193 10^3/cmm (157-399); Red Blood Count 4.24 10^6/uL (3.85-5.65); Red Cell Distribution Width 13.6 % (12.1-15.1); White Blood Count 11.15 10^3/uL (3.29-11.43)
[2024-01-05 11:50] LABS: Alanine Aminotransferase 16 U/L (0-41); Albumin Level 4.1 g/dL (3.5-5.2); Alkaline Phosphatase 63 U/L (40-130); Anion Gap 15.5 (5-19); Aspartate Amino Transferase 17 U/L (0-40); Blood Urea Nitrogen 13 mg/dL (6-20); Calcium 9.8 mg/dL (8.5-10.5); Carbon Dioxide 24 mmol/L (22-29); Chloride 102 mmol/L (98-107); Globulin 2.6 g/dL (1.3-4.6); Glomerular Filtration Rate 45.1 mL/min (90-130); Glucose 201 mg/dL (65-115); Lactate Dehydrogenase 216 U/L (135-225); Osmolality Calculated 292 mOsm/kg (285-295); Potassium 3.5 mmol/L (3.5-5.1); Sodium 138 mmol/L (136-145); Total Bilirubin 0.4 mg/dL (0.15-1.2); Total Protein 6.7 g/dL (6.6-8.7)
[2024-01-05] MEDS: [UNRECOGNIZED DRUG - OTHER] IV (13:22)
[2024-01-05] MEDS: SODIUM CHLORIDE 0.9% IV (13:22)
[2024-01-05 14:28] VITALS: BP 161/74; PULSE 78; RESP 16; TEMP 36.6; O2SAT 99
== END 2024-01-05 23:59 | disposition home or self-care (01) ==
PROVIDERS: Internal Medicine; PCP Nurse Practitioner Family; Visit Provider Internal Medicine Medical Oncology
DX: M31.10 Thrombotic microangiopathy, unspecified (principal); Z51.81 Encounter for therapeutic drug level monitoring; Z79.899 Other long term (current) drug therapy
CPT/HCPCS: 80053; 83615; 85025; 96365; 99214; A4222; J1303

== ENCOUNTER 2024-01-13 10:54 | Outpatient (CLI) | payer MEDICARE, MEDICAID, SELFPAY ==
[2024-01-13 11:21] LABS: Basophils % 0.4 %; Eosinophils # 0.1 10^3/uL (0.0-0.8); Eosinophils % 1.1 %; Mean Corpuscular HGB Conc 31.8 g/dL (30-55); Mean Corpuscular Hemoglobin 29.7 pg (27-33); Mean Corpuscular Volume 93.5 fl (82-101); Mean Platelet Volume 10.4 fL (7.4-10.4); Monocytes % 9.2 %; Neutrophils # 8.75 10^3/uL (1.8-7.7); Neutrophils % 79.9 %; Nucleated Red Blood Cells % 0 %; Platelet Count 194 10^3/cmm (157-399); Red Blood Count 4.28 10^6/uL (3.85-5.65); Red Cell Distribution Width 13.5 % (12.1-15.1); White Blood Count 10.94 10^3/uL (3.29-11.43)
[2024-01-13 11:40] LABS: UPRO/UCREAT Ratio 3.68 mg/mg CR; Urine Creatinine 37 mg/dL (39-259); Urine Protein Random 136 mg/dL
[2024-01-13 11:43] LABS: Albumin Level 3.8 g/dL (3.5-5.2); Anion Gap 14.1 (5-19); Blood Urea Nitrogen 21 mg/dL (6-20); Calcium 9.3 mg/dL (8.5-10.5); Carbon Dioxide 22 mmol/L (22-29); Chloride 103 mmol/L (98-107); Glomerular Filtration Rate 39.4 mL/min (90-130); Glucose 229 mg/dL (65-115); Phosphorus 2.6 mg/dL (2.5-4.5); Potassium 4.1 mmol/L (3.5-5.1); Sodium 135 mmol/L (136-145)
[2024-01-13 11:44] LABS: Calcium 9.4 mg/dL (8.5-10.5)
[2024-01-13 11:51] LABS: Parathyroid Hormone 148.3 pg/mL (15-65)
[2024-01-13 11:58] LABS: 25 Hydroxy Vitamin D 31 ng/mL (30-100)
== END 2024-01-13 10:55 | disposition home or self-care (01) ==
PROVIDERS: PCP Nurse Practitioner Family; Visit Provider Nurse Practitioner
DX: N18.32 Chronic kidney disease, stage 3b (principal); Z94.0 Kidney transplant status
CPT/HCPCS: 36415; 80069; 80197; 82306; 82310; 82570; 83970; 84156; 85025

== ENCOUNTER 2024-01-15 14:48 | Oncology outpatient (recurring) (ONCR) | payer MEDICARE, MEDICAID, SELFPAY ==
[2024-01-15 15:16] LABS: Basophils % 0.4 %; Eosinophils # 0.1 10^3/uL (0.0-0.8); Eosinophils % 0.5 %; Hematocrit 40.8 % (37-53); Lymphocytes # 0.5 10^3/uL (0.8-4.8); Lymphocytes % 5.3 %; Mean Corpuscular HGB Conc 32.4 g/dL (30-55); Mean Corpuscular Hemoglobin 30.1 pg (27-33); Mean Corpuscular Volume 92.9 fl (82-101); Mean Platelet Volume 10.4 fL (7.4-10.4); Monocytes # 0.6 10^3/uL (0.2-0.9); Monocytes % 5.4 %; Neutrophils # 8.89 10^3/uL (1.8-7.7); Nucleated Red Blood Cells % 0 %; Platelet Count 199 10^3/cmm (157-399); Red Blood Count 4.39 10^6/uL (3.85-5.65); Red Cell Distribution Width 13.4 % (12.1-15.1); White Blood Count 10.11 10^3/uL (3.29-11.43)
[2024-01-15 15:31] LABS: Bilirubin Urine Neg (Negative); Blood Urine Neg (Negative); Glucose Urine UA 1+ (Normal); Ketones Urine Negative (Negative); Leukocyte Esterase Urine Negative (Negative); Nitrate Urine Negative (Negative); Protein Urine 3+ (Negative); Specific Gravity, Urine 1.015 (1.005-1.030); Urine Appearance Clear (CLEAR); Urine Color Yellow (Yellow); Urobilinogen Urine Norm (Negative); pH Urine 6 (5-7)
[2024-01-15 15:34] LABS: Add Urine Culture? No; Bacteria Urine TRACE /hpf; Squamous Epithelial Cell Urine RARE /hpf (0-5); WBC Urine RARE /hpf (0-5)
[2024-01-15 15:35] LABS: Alanine Aminotransferase 13 U/L (0-41); Albumin Level 3.9 g/dL (3.5-5.2); Alkaline Phosphatase 66 U/L (40-130); Anion Gap 13.7 (5-19); Aspartate Amino Transferase 17 U/L (0-40); Blood Urea Nitrogen 16 mg/dL (6-20); Calcium 9.3 mg/dL (8.5-10.5); Carbon Dioxide 24 mmol/L (22-29); Chloride 104 mmol/L (98-107); Chol HDL Ratio 4.61 mg/dL (1.0-5.00); Cholesterol 189 mg/dL (0-200); Globulin 2.3 g/dL (1.3-4.6); Glomerular Filtration Rate 39.4 mL/min (90-130); Glucose 181 mg/dL (65-115); HDL Cholesterol 41 mg/dL (60-100); LDL Cholesterol Calculated 95 mg/dL (50-129); LDL HDL Ratio 2.32 RATIO (0.00-3.22); Potassium 4.7 mmol/L (3.5-5.1); Sodium 137 mmol/L (136-145); Total Bilirubin 0.3 mg/dL (0.15-1.2); Total Protein 6.2 g/dL (6.6-8.7); Triglycerides 267 mg/dL (0-150)
[2024-01-15 15:42] LABS: Estmated Average Glucose 151; Hemoglobin A1C 6.9 % (4.0-6.0)
[2024-01-15 15:45] LABS: Urine Creatinine 78 mg/dL (39-259)
[2024-01-15 15:56] LABS: UPRO/UCREAT Ratio 3.95 mg/mg CR; Urine Protein Random 308 mg/dL
[2024-01-21 07:29] LABS: HLA-B*5701 Typing Negative
[2024-01-21 11:10] LABS: CMV DNA By PCR NOT DETECTED; CMV DNA, QN PCR NOT DETECTED Log IU/mL; SOURCE blood
[2024-01-21 12:43] LABS: BK VIRUS DNA, QN PCR NOT DETECTED copies/mL; BK VIRUS DNA, QN RT PCR NOT DETECTED Log cps/mL; SOURCE WHOLE BLOOD
== END 2024-01-20 23:59 | disposition home or self-care (01) ==
PROVIDERS: Hospitalist; PCP Nurse Practitioner Family; Visit Provider Internal Medicine Medical Oncology
DX: M31.10 Thrombotic microangiopathy, unspecified (principal); Z51.81 Encounter for therapeutic drug level monitoring; Z79.899 Other long term (current) drug therapy
CPT/HCPCS: 36415; 80061; 80069; 80076; 80197; 81001; 81381; 82570; 83036; 84156; 85025; 87496; 87798

== ENCOUNTER 2024-02-04 10:23 | Oncology outpatient (recurring) (ONCR) | payer MEDICARE, MEDICAID, SELFPAY ==
[2024-02-04 11:11] LABS: Basophils # 0.1 10^3/uL (0.0-0.1); Basophils % 0.4 %; Eosinophils # 0.2 10^3/uL (0.0-0.8); Eosinophils % 1.4 %; Hematocrit 41.1 % (37-53); Lymphocytes # 1.1 10^3/uL (0.8-4.8); Lymphocytes % 8.2 %; Mean Corpuscular HGB Conc 31.6 g/dL (30-55); Mean Corpuscular Volume 94.7 fl (82-101); Mean Platelet Volume 10.4 fL (7.4-10.4); Monocytes % 7.6 %; Neutrophils # 10.87 10^3/uL (1.8-7.7); Neutrophils % 81.9 %; Nucleated Red Blood Cells % 0 %; Platelet Count 222 10^3/cmm (157-399); Red Blood Count 4.34 10^6/uL (3.85-5.65); Red Cell Distribution Width 13.2 % (12.1-15.1); White Blood Count 13.25 10^3/uL (3.29-11.43)
[2024-02-04 11:28] LABS: INR 0.88 (0.8-1.2)
[2024-02-04 11:32] LABS: Albumin Level 3.6 g/dL (3.5-5.2); Anion Gap 15.4 (5-19); Blood Urea Nitrogen 20 mg/dL (6-20); Calcium 10.2 mg/dL (8.5-10.5); Carbon Dioxide 22 mmol/L (22-29); Chloride 105 mmol/L (98-107); Complement C3 87 mg/dL (90-180); Glomerular Filtration Rate 42.1 mL/min (90-130); Glucose 204 mg/dL (65-115); Phosphorus 3.3 mg/dL (2.5-4.5); Potassium 4.4 mmol/L (3.5-5.1); Sodium 138 mmol/L (136-145)
== END 2024-02-20 23:59 | disposition home or self-care (01) ==
PROVIDERS: Hospitalist; PCP Nurse Practitioner Family; Visit Provider Internal Medicine Medical Oncology
DX: M31.10 Thrombotic microangiopathy, unspecified (principal); Z51.81 Encounter for therapeutic drug level monitoring; Z79.899 Other long term (current) drug therapy
CPT/HCPCS: 36415; 80069; 80197; 85025; 85610; 86160

== ENCOUNTER 2024-03-02 11:56 | Oncology outpatient (recurring) (ONCR) | payer MEDICARE, MEDICAID, SELFPAY ==
[2024-03-02 12:22] LABS: Basophils # 0.1 10^3/uL (0.0-0.1); Basophils % 0.5 %; Eosinophils # 0.2 10^3/uL (0.0-0.8); Eosinophils % 1.9 %; Hematocrit 39.2 % (37-53); Lymphocytes # 1.3 10^3/uL (0.8-4.8); Lymphocytes % 11.5 %; Mean Corpuscular HGB Conc 32.1 g/dL (30-55); Mean Corpuscular Hemoglobin 29.5 pg (27-33); Mean Corpuscular Volume 91.8 fl (82-101); Mean Platelet Volume 10.2 fL (7.4-10.4); Monocytes # 1.1 10^3/uL (0.2-0.9); Monocytes % 10.1 %; Neutrophils # 8.35 10^3/uL (1.8-7.7); Neutrophils % 75.5 %; Nucleated Red Blood Cells % 0 %; Platelet Count 197 10^3/cmm (157-399); Red Blood Count 4.27 10^6/uL (3.85-5.65); Red Cell Distribution Width 13.3 % (12.1-15.1); White Blood Count 11.04 10^3/uL (3.29-11.43)
[2024-03-02 12:43] LABS: Alanine Aminotransferase 12 U/L (0-41); Albumin Level 3.7 g/dL (3.5-5.2); Alkaline Phosphatase 62 U/L (40-130); Anion Gap 15.7 (5-19); Aspartate Amino Transferase 14 U/L (0-40); Blood Urea Nitrogen 15 mg/dL (6-20); Calcium 9.4 mg/dL (8.5-10.5); Carbon Dioxide 23 mmol/L (22-29); Chloride 102 mmol/L (98-107); Globulin 2.6 g/dL (1.3-4.6); Glomerular Filtration Rate 48.6 mL/min (90-130); Glucose 163 mg/dL (65-115); Osmolality Calculated 288 mOsm/kg (285-295); Potassium 3.7 mmol/L (3.5-5.1); Sodium 137 mmol/L (136-145); Total Bilirubin 0.4 mg/dL (0.15-1.2); Total Protein 6.3 g/dL (6.6-8.7)
[2024-03-02] MEDS: [UNRECOGNIZED DRUG - OTHER] IV (14:21)
[2024-03-02] MEDS: SODIUM CHLORIDE 0.9% IV (14:21)
[2024-03-02 15:39] VITALS: BP 132/77; PULSE 68; RESP 17; TEMP 37; O2SAT 92
== END 2024-03-02 23:59 | disposition home or self-care (01) ==
PROVIDERS: Nurse Practitioner Family; PCP Nurse Practitioner Family; Visit Provider Internal Medicine Medical Oncology
DX: M31.10 Thrombotic microangiopathy, unspecified (principal); Z79.899 Other long term (current) drug therapy; Z94.0 Kidney transplant status; Z53.9 Procedure and treatment not carried out, unspecified reason; Z79.620 Long term (current) use of immunosuppressive biologic
CPT/HCPCS: 80053; 85025; 96413; 99214; J1303

== ENCOUNTER 2024-04-27 12:24 | Oncology outpatient (recurring) (ONCR) | payer MEDICARE, MEDICAID, SELFPAY ==
[2024-04-27 12:49] LABS: Basophils % 0.4 %; Eosinophils # 0.1 10^3/uL (0.0-0.8); Eosinophils % 0.8 %; Hematocrit 39.8 % (37-53); Lymphocytes # 0.7 10^3/uL (0.8-4.8); Lymphocytes % 6.7 %; Mean Corpuscular HGB Conc 32.2 g/dL (30-55); Mean Corpuscular Hemoglobin 29.7 pg (27-33); Mean Corpuscular Volume 92.3 fl (82-101); Mean Platelet Volume 10.6 fL (7.4-10.4); Monocytes # 0.6 10^3/uL (0.2-0.9); Neutrophils # 8.62 10^3/uL (1.8-7.7); Neutrophils % 85.8 %; Nucleated Red Blood Cells % 0 %; Platelet Count 195 10^3/cmm (157-399); Red Blood Count 4.31 10^6/uL (3.85-5.65); Red Cell Distribution Width 13.2 % (12.1-15.1); White Blood Count 10.04 10^3/uL (3.29-11.43)
[2024-04-27 13:07] LABS: Alanine Aminotransferase 11 U/L (0-41); Albumin Level 3.7 g/dL (3.5-5.2); Alkaline Phosphatase 61 U/L (40-130); Anion Gap 14.4 (5-19); Aspartate Amino Transferase 13 U/L (0-40); Blood Urea Nitrogen 22 mg/dL (6-20); Calcium 9.5 mg/dL (8.5-10.5); Carbon Dioxide 22 mmol/L (22-29); Chloride 104 mmol/L (98-107); Globulin 2.3 g/dL (1.3-4.6); Glomerular Filtration Rate 34.9 mL/min (90-130); Glucose 229 mg/dL (65-115); Osmolality Calculated 293 mOsm/kg (285-295); Potassium 4.4 mmol/L (3.5-5.1); Sodium 136 mmol/L (136-145); Total Bilirubin 0.3 mg/dL (0.15-1.2)
[2024-04-27] MEDS: SODIUM CHLORIDE 0.9% IV (14:40)
[2024-04-27] MEDS: [UNRECOGNIZED DRUG - OTHER] IV (14:40)
[2024-04-27 15:38] VITALS: BP 162/76; PULSE 76; RESP 16; TEMP 36.7; O2SAT 95
== END 2024-04-27 23:59 | disposition home or self-care (01) ==
PROVIDERS: Nurse Practitioner Family; PCP Nurse Practitioner Family; Visit Provider Internal Medicine Medical Oncology
DX: M31.10 Thrombotic microangiopathy, unspecified (principal); Z94.0 Kidney transplant status; Z79.620 Long term (current) use of immunosuppressive biologic; Z79.899 Other long term (current) drug therapy
CPT/HCPCS: 80053; 85025; 96365; 99214; A4222; J1303

== ENCOUNTER 2024-06-22 13:16 | Oncology outpatient (recurring) (ONCR) | payer MEDICARE, MEDICAID, SELFPAY ==
[2024-06-22 13:52] LABS: Basophils # 0.1 10^3/uL (0.0-0.1); Basophils % 0.4 %; Eosinophils # 0.1 10^3/uL (0.0-0.8); Eosinophils % 0.3 %; Lymphocytes # 0.6 10^3/uL (0.8-4.8); Lymphocytes % 4.2 %; Mean Corpuscular HGB Conc 32.8 g/dL (30-55); Mean Corpuscular Hemoglobin 29.8 pg (27-33); Mean Corpuscular Volume 90.7 fl (82-101); Mean Platelet Volume 10.9 fL (7.4-10.4); Monocytes # 0.8 10^3/uL (0.2-0.9); Monocytes % 5.2 %; Neutrophils # 13.03 10^3/uL (1.8-7.7); Neutrophils % 89.5 %; Nucleated Red Blood Cells % 0 %; Platelet Count 180 10^3/cmm (157-399); Red Cell Distribution Width 13.3 % (12.1-15.1); White Blood Count 14.56 10^3/uL (3.29-11.43)
[2024-06-22 14:07] LABS: Alanine Aminotransferase 13 U/L (0-41); Albumin Level 3.7 g/dL (3.5-5.2); Alkaline Phosphatase 66 U/L (40-130); Anion Gap 13.4 (5-19); Aspartate Amino Transferase 16 U/L (0-40); Blood Urea Nitrogen 16 mg/dL (6-20); Calcium 9.1 mg/dL (8.5-10.5); Carbon Dioxide 24 mmol/L (22-29); Chloride 103 mmol/L (98-107); Globulin 1.9 g/dL (1.3-4.6); Glucose 182 mg/dL (65-115); Osmolality Calculated 288 mOsm/kg (285-295); Potassium 4.4 mmol/L (3.5-5.1); Sodium 136 mmol/L (136-145); Total Bilirubin 0.4 mg/dL (0.15-1.2); Total Protein 5.6 g/dL (6.6-8.7)
[2024-06-22] MEDS: SODIUM CHLORIDE 0.9% IV (15:53)
[2024-06-22] MEDS: [UNRECOGNIZED DRUG - OTHER] IV (15:53)
[2024-06-22 16:57] VITALS: BP 154/89; PULSE 84; RESP 18; TEMP 36.6; O2SAT 98
== END 2024-06-22 23:59 | disposition home or self-care (01) ==
PROVIDERS: Nurse Practitioner Family; PCP Nurse Practitioner Family; Visit Provider Internal Medicine Hematology & Oncology
DX: M31.10 Thrombotic microangiopathy, unspecified (principal); Z51.81 Encounter for therapeutic drug level monitoring; Z79.899 Other long term (current) drug therapy; Z94.0 Kidney transplant status; Z51.12 Encounter for antineoplastic immunotherapy
CPT/HCPCS: 80053; 85025; 96413; 99214; A4222; J1303

== ENCOUNTER 2024-08-17 12:28 | Oncology outpatient (recurring) (ONCR) | payer MEDICARE, MEDICAID, SELFPAY ==
[2024-08-17 13:01] LABS: Basophils % 0.4 %; Eosinophils # 0.1 10^3/uL (0.0-0.8); Eosinophils % 0.6 %; Hematocrit 38.6 % (37-53); Lymphocytes # 0.6 10^3/uL (0.8-4.8); Lymphocytes % 5.3 %; Mean Corpuscular HGB Conc 32.6 g/dL (30-55); Mean Corpuscular Hemoglobin 29.2 pg (27-33); Mean Corpuscular Volume 89.6 fl (82-101); Mean Platelet Volume 10.6 fL (7.4-10.4); Monocytes # 0.7 10^3/uL (0.2-0.9); Monocytes % 6.3 %; Neutrophils # 9.62 10^3/uL (1.8-7.7); Neutrophils % 87.2 %; Nucleated Red Blood Cells % 0 %; Platelet Count 189 10^3/cmm (157-399); Red Blood Count 4.31 10^6/uL (3.85-5.65); Red Cell Distribution Width 13.4 % (12.1-15.1); White Blood Count 11.03 10^3/uL (3.29-11.43)
[2024-08-17 13:21] LABS: Alanine Aminotransferase 11 U/L (0-41); Albumin Level 3.7 g/dL (3.5-5.2); Alkaline Phosphatase 61 U/L (40-130); Anion Gap 15.3 (5-19); Aspartate Amino Transferase 17 U/L (0-40); Blood Urea Nitrogen 19 mg/dL (6-20); Calcium 9.3 mg/dL (8.5-10.5); Carbon Dioxide 22 mmol/L (22-29); Chloride 101 mmol/L (98-107); Globulin 2.2 g/dL (1.3-4.6); Glomerular Filtration Rate 36.9 mL/min (90-130); Glucose 242 mg/dL (65-115); Osmolality Calculated 288 mOsm/kg (285-295); Potassium 4.3 mmol/L (3.5-5.1); Sodium 134 mmol/L (136-145); Total Bilirubin 0.3 mg/dL (0.15-1.2); Total Protein 5.9 g/dL (6.6-8.7)
[2024-08-17 14:45] VITALS: BP 172/71; PULSE 71; RESP 15; TEMP 36.5; O2SAT 95
[2024-08-17] MEDS: SODIUM CHLORIDE 0.9% IV (14:45)
[2024-08-17] MEDS: [UNRECOGNIZED DRUG - OTHER] IV (14:45)
[2024-08-17 15:45] VITALS: BP 157/81; PULSE 69; RESP 16; TEMP 36.6; O2SAT 92
== END 2024-08-17 23:59 | disposition home or self-care (01) ==
PROVIDERS: Internal Medicine Medical Oncology; PCP Nurse Practitioner Family; Visit Provider Internal Medicine Hematology & Oncology
DX: M31.10 Thrombotic microangiopathy, unspecified (principal); Z51.81 Encounter for therapeutic drug level monitoring; Z79.899 Other long term (current) drug therapy; Z94.0 Kidney transplant status; F17.210 Nicotine dependence, cigarettes, uncomplicated
CPT/HCPCS: 80053; 85025; 96365; 99214; A4222; J1303

== ENCOUNTER 2024-10-12 11:59 | Oncology outpatient (recurring) (ONCR) | payer MEDICARE, MEDICAID, SELFPAY ==
[2024-10-12 13:06] LABS: Basophils # 0.1 10^3/uL (0.0-0.1); Basophils % 0.4 %; Eosinophils # 0.2 10^3/uL (0.0-0.8); Eosinophils % 1.3 %; Hematocrit 38.3 % (37-53); Lymphocytes % 7.3 %; Mean Corpuscular HGB Conc 31.6 g/dL (30-55); Mean Corpuscular Hemoglobin 28.9 pg (27-33); Mean Corpuscular Volume 91.6 fl (82-101); Mean Platelet Volume 10.1 fL (7.4-10.4); Monocytes # 1.1 10^3/uL (0.2-0.9); Monocytes % 7.5 %; Neutrophils % 83.1 %; Nucleated Red Blood Cells % 0 %; Platelet Count 217 10^3/cmm (157-399); Red Blood Count 4.18 10^6/uL (3.85-5.65); Red Cell Distribution Width 13.2 % (12.1-15.1)
[2024-10-12 13:39] LABS: Alanine Aminotransferase 11 U/L (0-41); Albumin Level 3.7 g/dL (3.5-5.2); Alkaline Phosphatase 71 U/L (40-130); Aspartate Amino Transferase 15 U/L (0-40); Blood Urea Nitrogen 20 mg/dL (6-20); Calcium 9.8 mg/dL (8.5-10.5); Carbon Dioxide 22 mmol/L (22-29); Chloride 100 mmol/L (98-107); Creatinine Clr Calc Pharmacy 40.4841; Ferritin 213 ng/mL (30-400); Globulin 2.5 g/dL (1.3-4.6); Glomerular Filtration Rate 28.1 mL/min (90-130); Glucose 207 mg/dL (65-115); Iron 73 ug/dL (59-158); Osmolality Calculated 287 mOsm/kg (285-295); Percent Saturation 28.1 % (20-50); Sodium 134 mmol/L (136-145); Total Bilirubin 0.2 mg/dL (0.15-1.2); Total Iron Binding Capacity 259 mcg/dl; Total Protein 6.2 g/dL (6.6-8.7); Unsaturated Iron Binding 186 ug/dL (112-347)
[2024-10-12 13:54] LABS: Anion Gap 16.4 (5-19); Potassium 4.4 mmol/L (3.5-5.1)
[2024-10-12 13:59] LABS: Lactate Dehydrogenase 209 U/L (135-225)
[2024-10-12] MEDS: [UNRECOGNIZED DRUG - OTHER] IV (14:02)
[2024-10-12] MEDS: SODIUM CHLORIDE 0.9% IV (14:02)
[2024-10-12 15:24] VITALS: BP 162/77; PULSE 62; RESP 15; TEMP 37.2; O2SAT 94
== END 2024-10-12 23:59 | disposition home or self-care (01) ==
PROVIDERS: Internal Medicine Medical Oncology; PCP Nurse Practitioner Family; Visit Provider Internal Medicine Hematology & Oncology
DX: M31.10 Thrombotic microangiopathy, unspecified (principal); Z79.899 Other long term (current) drug therapy; D64.9 Anemia, unspecified; F17.210 Nicotine dependence, cigarettes, uncomplicated; N18.6 End stage renal disease; Z94.0 Kidney transplant status
CPT/HCPCS: 80053; 82728; 83540; 83550; 83615; 85025; 96413; 99213; A4222; J1303

== ENCOUNTER 2024-12-07 09:32 | Oncology outpatient (recurring) (ONCR) | payer MEDICARE, MEDICAID, SELFPAY ==
--- NOTE | 2024-10-22 09:52 | PC.PHAR ---
Addendum entered and electronically signed by Laureen Saenz 10/25/24 09:22: SPOKE TO DR. BETH THIS MORNING. PLAN IS TO GIVE GAVINO A BOOSTER OF MENVEO WHEN HE'S HERE FOR HIS NEXT TREATMENT. I HAVE SPOKEN WITH PATSY AT THE [facility]. SHE IS GOING TO WHITE BAG IT FOR ME. SHE ALSO STATED THAT HE RECEIVED PCV20 ON 06/06/23 AND PPV23 07/15/19. SHE SUGGESTED WE MAKE SURE HE GETS HIS FLU WHILE HE'S HERE WELL. Original Note: MENACTRA & ULTOMIRIS REMS PROGRAM: I ASKED A LOCAL PHARMACIST TO ACCESS [employer] TO DETERMINE PATIENTS EXACT DATES FOR MENACTRA ADMINISTRATION. PHARMACIST ELVIA SEANZ AT [facility] STATED PATIENT RECEIVED MENACTRA ON 11/09/15 AND 01/10/16. I BELIEVE PATIENT NEEDS A BOOSTER SO I WILL DISCUSS THIS WITH OUR PROVIDERS PRIOR TO NEXT DOSE AND ENSURE HE GETS THIS IF APPLICABLE.
[2024-12-07 10:27] LABS: Basophils % 0.3 %; Eosinophils # 0.2 10^3/uL (0.0-0.8); Eosinophils % 1.4 %; Hematocrit 38.2 % (37-53); Lymphocytes # 1.2 10^3/uL (0.8-4.8); Lymphocytes % 8.2 %; Mean Corpuscular HGB Conc 31.7 g/dL (30-55); Mean Corpuscular Hemoglobin 28.5 pg (27-33); Mean Corpuscular Volume 90.1 fl (82-101); Mean Platelet Volume 9.6 fL (7.4-10.4); Monocytes % 7.2 %; Neutrophils # 11.61 10^3/uL (1.8-7.7); Neutrophils % 82.5 %; Nucleated Red Blood Cells % 0 %; Platelet Count 217 10^3/cmm (157-399); Red Blood Count 4.24 10^6/uL (3.85-5.65); Red Cell Distribution Width 13.7 % (12.1-15.1); White Blood Count 14.08 10^3/uL (3.29-11.43)
[2024-12-07 10:46] LABS: Alanine Aminotransferase 9 U/L (0-41); Albumin Level 3.9 g/dL (3.5-5.2); Alkaline Phosphatase 72 U/L (40-130); Aspartate Amino Transferase 14 U/L (0-40); Blood Urea Nitrogen 23 mg/dL (6-20); Calcium 9.6 mg/dL (8.5-10.5); Carbon Dioxide 21 mmol/L (22-29); Chloride 101 mmol/L (98-107); Ferritin 270 ng/mL (30-400); Globulin 2.5 g/dL (1.3-4.6); Glomerular Filtration Rate 32.8 mL/min (90-130); Glucose 168 mg/dL (65-115); Iron 67 ug/dL (59-158); Lactate Dehydrogenase 176 U/L (135-225); Osmolality Calculated 288 mOsm/kg (285-295); Sodium 135 mmol/L (136-145); Total Bilirubin 0.3 mg/dL (0.15-1.2); Total Iron Binding Capacity 257 mcg/dl; Total Protein 6.4 g/dL (6.6-8.7); Unsaturated Iron Binding 190 ug/dL (112-347)
[2024-12-07] MEDS: [UNRECOGNIZED DRUG - OTHER] IV (13:26)
[2024-12-07] MEDS: SODIUM CHLORIDE 0.9% IV (13:26)
--- NOTE | 2024-12-07 13:42 | PC.PHAR ---
VACCINE UPDATE: PATIENT HERE FOR ULTOMIRIS INFUSION. VERBAL ORDER FROM TONY TO GIVE FLU SHOT. I PLACED THIS ORDER IN [employer]. [facility] WILL COME TO THE CLINIC TODAY TO ADMINISTER MEN-QUADFI. I HAVE UPDATED THIS ON THE REMS WEBSITE FOR ULTOMIRIS.
[2024-12-07] MEDS: flu vacc pf 24-25 (6 mos+) SYRINGE 45 MCG IM (14:27)
[2024-12-07 14:38] VITALS: BP 161/72; PULSE 82; RESP 16; TEMP 36.6; O2SAT 94
== END 2024-12-07 23:59 | disposition home or self-care (01) ==
PROVIDERS: Internal Medicine Medical Oncology; PCP Nurse Practitioner Family; Visit Provider Internal Medicine Hematology & Oncology
DX: M31.10 Thrombotic microangiopathy, unspecified (principal); D64.9 Anemia, unspecified; Z79.899 Other long term (current) drug therapy
CPT/HCPCS: 36415; 80053; 82728; 83540; 83550; 83615; 85025; 90471; 90686; 96413; A4222; J1303

== ENCOUNTER 2024-12-31 10:45 | Outpatient (CLI) | payer MEDICARE, SELFPAY ==
[2024-12-31 11:42] LABS: Basophils % 0.3 %; Eosinophils # 0.1 10^3/uL (0.0-0.8); Eosinophils % 0.8 %; Lymphocytes # 0.5 10^3/uL (0.8-4.8); Lymphocytes % 4.4 %; Mean Corpuscular HGB Conc 31.9 g/dL (30-55); Mean Corpuscular Hemoglobin 28.9 pg (27-33); Mean Corpuscular Volume 90.7 fl (82-101); Mean Platelet Volume 10.3 fL (7.4-10.4); Neutrophils % 86.1 %; Nucleated Red Blood Cells % 0 %; Platelet Count 176 10^3/cmm (157-399); Red Blood Count 4.08 10^6/uL (3.85-5.65); White Blood Count 11.97 10^3/uL (3.29-11.43)
[2024-12-31 12:01] LABS: Creatinine Urine, Random 51 mg/dL (39-259)
[2024-12-31 12:04] LABS: Calcium 9.2 mg/dL (8.5-10.5)
[2024-12-31 12:05] LABS: Albumin Level 3.7 g/dL (3.5-5.2); Anion Gap 15.3 (5-19); Blood Urea Nitrogen 21 mg/dL (6-20); Calcium 9.4 mg/dL (8.5-10.5); Carbon Dioxide 23 mmol/L (22-29); Chloride 104 mmol/L (98-107); Glomerular Filtration Rate 36.9 mL/min (90-130); Glucose 126 mg/dL (65-115); Phosphorus 3.2 mg/dL (2.5-4.5); Potassium 4.3 mmol/L (3.5-5.1); Sodium 138 mmol/L (136-145)
[2024-12-31 12:12] LABS: Parathyroid Hormone 207.4 pg/mL (15-65)
[2024-12-31 12:13] LABS: Microalbum Creatinine Ratio Ur 2686 mg/dL (0-20); Microalbumin Random Urine 137 ug/dL (0-20)
[2024-12-31 12:21] LABS: 25 Hydroxy Vitamin D 59 ng/mL (30-100)
[2025-01-03 15:55] LABS: Tacrolimus, Highly Sensitive 7.9 mcg/L
== END 2024-12-31 10:46 | disposition home or self-care (01) ==
LOC: LAB 10:47
PROVIDERS: PCP Nurse Practitioner Family; Visit Provider Nurse Practitioner
DX: N18.32 Chronic kidney disease, stage 3b (principal); Z94.0 Kidney transplant status
CPT/HCPCS: 36415; 80069; 80197; 82044; 82306; 82310; 83970; 85025

== ENCOUNTER 2025-01-10 08:34 | Outpatient (CLI) | payer OTHER, SELFPAY ==
[2025-01-10 09:02] LABS: Basophils # 0.1 10^3/uL (0.0-0.1); Basophils % 0.4 %; Eosinophils # 0.2 10^3/uL (0.0-0.8); Eosinophils % 1.3 %; Hematocrit 35.2 % (37-53); Lymphocytes # 0.6 10^3/uL (0.8-4.8); Lymphocytes % 4.6 %; Mean Corpuscular HGB Conc 32.4 g/dL (30-55); Mean Corpuscular Hemoglobin 28.8 pg (27-33); Mean Corpuscular Volume 88.9 fl (82-101); Mean Platelet Volume 9.3 fL (7.4-10.4); Monocytes # 0.7 10^3/uL (0.2-0.9); Monocytes % 5.6 %; Neutrophils # 10.96 10^3/uL (1.8-7.7); Neutrophils % 87.7 %; Nucleated Red Blood Cells % 0 %; Platelet Count 235 10^3/cmm (157-399); Red Blood Count 3.96 10^6/uL (3.85-5.65); Red Cell Distribution Width 13.8 % (12.1-15.1); White Blood Count 12.49 10^3/uL (3.29-11.43)
[2025-01-10 09:19] LABS: Alanine Aminotransferase 10 U/L (0-41); Albumin Level 3.7 g/dL (3.5-5.2); Alkaline Phosphatase 65 U/L (40-130); Anion Gap 15.4 (5-19); Aspartate Amino Transferase 13 U/L (0-40); Blood Urea Nitrogen 20 mg/dL (6-20); Calcium 9.4 mg/dL (8.5-10.5); Carbon Dioxide 22 mmol/L (22-29); Chloride 100 mmol/L (98-107); Globulin 2.4 g/dL (1.3-4.6); Glomerular Filtration Rate 34.7 mL/min (90-130); Glucose 168 mg/dL (65-115); Lactate Dehydrogenase 165 U/L (135-225); Osmolality Calculated 282 mOsm/kg (285-295); Potassium 4.4 mmol/L (3.5-5.1); Sodium 133 mmol/L (136-145); Total Bilirubin 0.2 mg/dL (0.15-1.2); Total Protein 6.1 g/dL (6.6-8.7)
[2025-01-11 14:50] LABS: Tacrolimus, Highly Sensitive 3.1 mcg/L
== END 2025-01-10 08:35 | disposition home or self-care (01) ==
PROVIDERS: Nurse Practitioner Family; PCP Nurse Practitioner Family; Visit Provider Registered Nurse
DX: M31.10 Thrombotic microangiopathy, unspecified (principal); Z94.0 Kidney transplant status; N18.32 Chronic kidney disease, stage 3b
CPT/HCPCS: 36415; 80053; 80197; 83615; 85025

== ENCOUNTER 2025-02-01 09:21 | Oncology outpatient (recurring) (ONCR) | payer OTHER, SELFPAY ==
[2025-02-01 10:10] LABS: Basophils # 0.1 10^3/uL (0.0-0.1); Basophils % 0.4 %; Eosinophils # 0.2 10^3/uL (0.0-0.8); Eosinophils % 1.7 %; Hematocrit 33.4 % (37-53); Lymphocytes # 0.6 10^3/uL (0.8-4.8); Lymphocytes % 4.2 %; Mean Corpuscular HGB Conc 31.4 g/dL (30-55); Mean Corpuscular Hemoglobin 28.9 pg (27-33); Mean Platelet Volume 10.3 fL (7.4-10.4); Monocytes % 7.2 %; Neutrophils # 11.95 10^3/uL (1.8-7.7); Nucleated Red Blood Cells % 0 %; Platelet Count 191 10^3/cmm (157-399); Red Blood Count 3.63 10^6/uL (3.85-5.65); Red Cell Distribution Width 14.2 % (12.1-15.1); White Blood Count 13.88 10^3/uL (3.29-11.43)
[2025-02-01 10:38] LABS: Alanine Aminotransferase 8 U/L (0-41); Albumin Level 3.4 g/dL (3.5-5.2); Alkaline Phosphatase 56 U/L (40-130); Anion Gap 19.4 (5-19); Aspartate Amino Transferase 12 U/L (0-40); Blood Urea Nitrogen 27 mg/dL (6-20); Calcium 9.1 mg/dL (8.5-10.5); Carbon Dioxide 20 mmol/L (22-29); Chloride 101 mmol/L (98-107); Creatinine Clr Calc Pharmacy 41.9683; Ferritin 280 ng/mL (30-400); Globulin 2.5 g/dL (1.3-4.6); Glomerular Filtration Rate 29.6 mL/min (90-130); Glucose 160 mg/dL (65-115); Iron 41 ug/dL (59-158); Osmolality Calculated 291 mOsm/kg (285-295); Percent Saturation 18.3 % (20-50); Potassium 4.4 mmol/L (3.5-5.1); Sodium 136 mmol/L (136-145); Total Bilirubin 0.2 mg/dL (0.15-1.2); Total Iron Binding Capacity 224 mcg/dl; Total Protein 5.9 g/dL (6.6-8.7); Unsaturated Iron Binding 183 ug/dL (112-347)
[2025-02-01] MEDS: sodium chloride 0.9% 500 ML 999 ML IV (11:37)
[2025-02-01] MEDS: amoxicillin-clav 500-125 mg Tablet 1 TAB PO (11:58)
[2025-02-01] MEDS: [UNRECOGNIZED DRUG - OTHER] IV (12:02)
[2025-02-01] MEDS: SODIUM CHLORIDE 0.9% IV (12:02)
[2025-02-01 13:51] VITALS: BP 178/78; PULSE 82; RESP 16; TEMP 36.9; O2SAT 98
== END 2025-02-01 23:59 | disposition home or self-care (01) ==
PROVIDERS: Nurse Practitioner Family; PCP Nurse Practitioner Family; Visit Provider Internal Medicine
DX: M31.10 Thrombotic microangiopathy, unspecified (principal); Z79.899 Other long term (current) drug therapy; Z94.0 Kidney transplant status; F17.210 Nicotine dependence, cigarettes, uncomplicated; I10 Essential (primary) hypertension; H66.92 Otitis media, unspecified, left ear; D64.9 Anemia, unspecified
CPT/HCPCS: 80053; 82728; 83540; 83550; 85025; 96361; 96413; 99214; A4222; J1303; J7040; J9999

== ENCOUNTER 2025-03-29 10:45 | Oncology outpatient (recurring) (ONCR) | payer MEDICARE, SELFPAY ==
[2025-03-29 11:04] LABS: Hematocrit 38.8 % (37-53); Hemoglobin 12.40 g/dL (11.27-16.99); Mean Corpuscular HGB Conc 32.0 g/dL (30-55); Mean Corpuscular Hemoglobin 29.2 pg (27-33); Mean Corpuscular Volume 91.3 fl (82-101); Nucleated Red Blood Cells % 0 %; Platelet Count 201 10^3/cmm (157-399); Red Blood Count 4.25 10^6/uL (3.85-5.65); White Blood Count 13.47 10^3/uL (3.29-11.43)
[2025-03-29 11:30] LABS: Alanine Aminotransferase 13 U/L (0-41); Albumin Level 3.8 g/dL (3.5-5.2); Alkaline Phosphatase 76 U/L (40-130); Anion Gap 18.2 (5-19); Aspartate Amino Transferase 18 U/L (0-40); Blood Urea Nitrogen 22 mg/dL (6-20); Calcium 9.6 mg/dL (8.5-10.5); Carbon Dioxide 20 mmol/L (22-29); Chloride 106 mmol/L (98-107); Creatinine Clr Calc Pharmacy 39.8668; Ferritin 293 ng/mL (30-400); Globulin 2.6 g/dL (1.3-4.6); Glucose 136 mg/dL (65-115); Iron 64 ug/dL (59-158); Osmolality Calculated 295 mOsm/kg (285-295); Potassium 4.2 mmol/L (3.5-5.1); Sodium 140 mmol/L (136-145); Total Iron Binding Capacity 250 mcg/dl; Total Protein 6.4 g/dL (6.6-8.7); Unsaturated Iron Binding 186 ug/dL (112-347)
[2025-03-29] MEDS: [UNRECOGNIZED DRUG - OTHER] IV (12:13)
[2025-03-29] MEDS: SODIUM CHLORIDE 0.9% IV (12:13)
[2025-03-29 12:29] LABS: Estmated Average Glucose 154; Hemoglobin A1C 7.0 % (4.0-6.0)
[2025-03-29 12:40] LABS: Alanine Aminotransferase 13 U/L (0-41); Albumin Level 3.6 g/dL (3.5-5.2); Alkaline Phosphatase 71 U/L (40-130); Anion Gap 15.0 (5-19); Aspartate Amino Transferase 17 U/L (0-40); Blood Urea Nitrogen 22 mg/dL (6-20); Calcium 9.2 mg/dL (8.5-10.5); Carbon Dioxide 20 mmol/L (22-29); Chloride 104 mmol/L (98-107); Cholesterol 194 mg/dL (0-200); Creatinine Clr Calc Pharmacy 41.6001; Globulin 2.4 g/dL (1.3-4.6); Glucose 148 mg/dL (65-115); HDL Cholesterol 39 mg/dL (60-100); Potassium 4.0 mmol/L (3.5-5.1); Sodium 135 mmol/L (136-145); Total Protein 6.0 g/dL (6.6-8.7); Triglycerides 256 mg/dL (0-150)
[2025-03-29 12:58] VITALS: BP 176/73; PULSE 76; TEMP 36.6; O2SAT 94
[2025-03-30 14:49] LABS: Tacrolimus, Highly Sensitive 2.8 mcg/L
== END 2025-03-29 23:59 | disposition home or self-care (01) ==
PROVIDERS: Internal Medicine Nephrology; Nurse Practitioner Family; PCP Nurse Practitioner Family; Visit Provider Internal Medicine
DX: M31.10 Thrombotic microangiopathy, unspecified (principal); D50.9 Iron deficiency anemia, unspecified; Z94.0 Kidney transplant status; E11.9 Type 2 diabetes mellitus without complications; F17.200 Nicotine dependence, unspecified, uncomplicated; R03.0 Elevated blood-pressure reading, without diagnosis of hypertension; N18.6 End stage renal disease; L98.8 Other specified disorders of the skin and subcutaneous tissue; Z79.899 Other long term (current) drug therapy
CPT/HCPCS: 36415; 80053; 80061; 80069; 80076; 80197; 82728; 83036; 83540; 83550; 83615; 85025; 96413; 99214; A4222; J1303

== ENCOUNTER 2025-04-26 13:59 | Oncology outpatient (recurring) (ONCR) | payer MEDICARE, MEDICAID, SELFPAY ==
[2025-04-26 14:42] LABS: Hematocrit 34.8 % (37-53); Hemoglobin 11.10 g/dL (11.27-16.99); Mean Corpuscular HGB Conc 31.9 g/dL (30-55); Mean Corpuscular Hemoglobin 28.9 pg (27-33); Mean Corpuscular Volume 90.6 fl (82-101); Nucleated Red Blood Cells % 0 %; Platelet Count 185 10^3/cmm (157-399); Red Blood Count 3.84 10^6/uL (3.85-5.65); White Blood Count 9.52 10^3/uL (3.29-11.43)
[2025-04-26 15:06] LABS: Albumin Level 3.3 g/dL (3.5-5.2); Anion Gap 15.6 (5-19); Blood Urea Nitrogen 29 mg/dL (6-20); Calcium 9.4 mg/dL (8.5-10.5); Carbon Dioxide 21 mmol/L (22-29); Chloride 106 mmol/L (98-107); Cholesterol 181 mg/dL (0-200); Glucose 137 mg/dL (65-115); HDL Cholesterol 42 mg/dL (60-100); Potassium 4.6 mmol/L (3.5-5.1); Sodium 138 mmol/L (136-145); Triglycerides 124 mg/dL (0-150)
[2025-04-27 16:19] LABS: Tacrolimus, Highly Sensitive 8.1 mcg/L
== END 2025-05-22 23:59 | disposition home or self-care (01) ==
PROVIDERS: Hospitalist; PCP Nurse Practitioner Family; Visit Provider Internal Medicine Medical Oncology
DX: Z94.0 Kidney transplant status (principal); E78.5 Hyperlipidemia, unspecified
CPT/HCPCS: 36415; 80061; 80069; 80197; 85025

== ENCOUNTER 2025-05-24 09:50 | Oncology outpatient (recurring) (ONCR) | payer MEDICARE, MEDICAID, SELFPAY ==
[2025-05-24 10:12] LABS: Hematocrit 35.0 % (37-53); Hemoglobin 11.10 g/dL (11.27-16.99); Mean Corpuscular HGB Conc 31.7 g/dL (30-55); Mean Corpuscular Hemoglobin 28.8 pg (27-33); Mean Corpuscular Volume 90.9 fl (82-101); Nucleated Red Blood Cells % 0 %; Platelet Count 189 10^3/cmm (157-399); Red Blood Count 3.85 10^6/uL (3.85-5.65); White Blood Count 12.28 10^3/uL (3.29-11.43)
[2025-05-24 10:28] LABS: Estmated Average Glucose 148; Hemoglobin A1C 6.8 % (4.0-6.0)
[2025-05-24 10:33] LABS: Alanine Aminotransferase 10 U/L (0-41); Albumin Level 3.5 g/dL (3.5-5.2); Alkaline Phosphatase 70 U/L (40-130); Anion Gap 15.6 (5-19); Aspartate Amino Transferase 15 U/L (0-40); Blood Urea Nitrogen 22 mg/dL (6-20); Calcium 8.9 mg/dL (8.5-10.5); Carbon Dioxide 21 mmol/L (22-29); Chloride 102 mmol/L (98-107); Cholesterol 172 mg/dL (0-200); Globulin 2.3 g/dL (1.3-4.6); Glucose 235 mg/dL (65-115); HDL Cholesterol 48 mg/dL (60-100); Potassium 4.6 mmol/L (3.5-5.1); Sodium 134 mmol/L (136-145); Total Protein 5.8 g/dL (6.6-8.7); Triglycerides 141 mg/dL (0-150)
[2025-05-24] MEDS: [UNRECOGNIZED DRUG - OTHER] IV (11:23)
[2025-05-24] MEDS: SODIUM CHLORIDE 0.9% IV (11:23)
[2025-05-24 12:20] VITALS: BP 175/85; PULSE 80; RESP 16; TEMP 36.3; O2SAT 93
[2025-05-26 08:24] LABS: Tacrolimus, Highly Sensitive 12.3 mcg/L
== END 2025-05-24 23:59 | disposition home or self-care (01) ==
PROVIDERS: Internal Medicine Nephrology; PCP Nurse Practitioner Family; Visit Provider Internal Medicine Medical Oncology
DX: Z94.0 Kidney transplant status (principal); M31.10 Thrombotic microangiopathy, unspecified; E78.5 Hyperlipidemia, unspecified; E10.65 Type 1 diabetes mellitus with hyperglycemia; F17.210 Nicotine dependence, cigarettes, uncomplicated; R03.0 Elevated blood-pressure reading, without diagnosis of hypertension; Z79.620 Long term (current) use of immunosuppressive biologic; Z79.899 Other long term (current) drug therapy
CPT/HCPCS: 80061; 80069; 80076; 80197; 83036; 85025; 96413; 99214; A4222; J1303; J7050

== ENCOUNTER 2025-06-14 08:39 | Outpatient (CLI) | payer MEDICAID, SELFPAY ==
[2025-06-14 10:34] LABS: Glucose Urine UA Negative (Normal); Nitrate Urine Negative (Negative); Specific Gravity, Urine 1.012 (1.005-1.030)
[2025-06-14 10:55] LABS: Creatinine Urine, Random 70 mg/dL (39-259)
[2025-06-14 11:11] LABS: Microalbum Creatinine Ratio Ur 4286 mg/dL (0-20)
== END 2025-06-14 08:40 | disposition home or self-care (01) ==
PROVIDERS: PCP Nurse Practitioner Family; Visit Provider Internal Medicine Nephrology
DX: Z01.89 Encounter for other specified special examinations (principal)
CPT/HCPCS: 36415; 81001; 82044; 83010; 83615; 87086; 87496; 87798

== ENCOUNTER 2025-07-19 09:33 | Oncology outpatient (recurring) (ONCR) | payer MEDICARE, MEDICAID, SELFPAY ==
[2025-07-19 09:58] LABS: Hematocrit 33.8 % (37-53); Hemoglobin 10.60 g/dL (11.27-16.99); Mean Corpuscular HGB Conc 31.4 g/dL (30-55); Mean Corpuscular Hemoglobin 28.6 pg (27-33); Mean Corpuscular Volume 91.4 fl (82-101); Nucleated Red Blood Cells % 0 %; Platelet Count 188 10^3/cmm (157-399); Red Blood Count 3.70 10^6/uL (3.85-5.65); White Blood Count 11.45 10^3/uL (3.29-11.43)
[2025-07-19 10:21] LABS: Alanine Aminotransferase 9 U/L (0-41); Albumin Level 3.5 g/dL (3.5-5.2); Alkaline Phosphatase 64 U/L (40-130); Anion Gap 16.3 (5-19); Aspartate Amino Transferase 16 U/L (0-40); Blood Urea Nitrogen 35 mg/dL (6-20); Calcium 8.7 mg/dL (8.5-10.5); Carbon Dioxide 22 mmol/L (22-29); Chloride 106 mmol/L (98-107); Ferritin 336 ng/mL (30-400); Globulin 2.4 g/dL (1.3-4.6); Glucose 110 mg/dL (65-115); Iron 60 ug/dL (59-158); Osmolality Calculated 299 mOsm/kg (285-295); Potassium 4.3 mmol/L (3.5-5.1); Sodium 140 mmol/L (136-145); Total Iron Binding Capacity 208 mcg/dl; Total Protein 5.9 g/dL (6.6-8.7); Unsaturated Iron Binding 148 ug/dL (112-347)
[2025-07-19 10:36] LABS: Vitamin B12 346 pg/mL (232-1245)
[2025-07-19 10:50] LABS: UPRO/UCREAT Ratio 4.96 mg/mg CR
[2025-07-19] MEDS: SODIUM CHLORIDE 0.9% IV (12:02)
[2025-07-19] MEDS: [UNRECOGNIZED DRUG - OTHER] IV (12:02)
[2025-07-19 12:19] LABS: Estmated Average Glucose 143; Hemoglobin A1C 6.6 % (4.0-6.0)
[2025-07-19 12:25] LABS: Alanine Aminotransferase 10 U/L (0-41); Albumin Level 3.3 g/dL (3.5-5.2); Alkaline Phosphatase 65 U/L (40-130); Anion Gap 17.1 (5-19); Aspartate Amino Transferase 13 U/L (0-40); Blood Urea Nitrogen 35 mg/dL (6-20); Calcium 8.4 mg/dL (8.5-10.5); Carbon Dioxide 20 mmol/L (22-29); Chloride 105 mmol/L (98-107); Cholesterol 166 mg/dL (0-200); Creatinine Clr Calc Pharmacy 29.7016; Globulin 2.1 g/dL (1.3-4.6); Glucose 106 mg/dL (65-115); HDL Cholesterol 36 mg/dL (60-100); Potassium 4.1 mmol/L (3.5-5.1); Sodium 138 mmol/L (136-145); Total Protein 5.4 g/dL (6.6-8.7); Triglycerides 208 mg/dL (0-150)
[2025-07-19 12:57] VITALS: BP 179/78; PULSE 79; RESP 17; TEMP 37; O2SAT 92
== END 2025-07-19 23:59 | disposition home or self-care (01) ==
PROVIDERS: Internal Medicine; Internal Medicine Medical Oncology; Internal Medicine Nephrology; PCP Nurse Practitioner Family; Visit Provider Nurse Practitioner Family
DX: M31.10 Thrombotic microangiopathy, unspecified (principal); Z94.0 Kidney transplant status; D64.9 Anemia, unspecified; F17.210 Nicotine dependence, cigarettes, uncomplicated; R03.0 Elevated blood-pressure reading, without diagnosis of hypertension; L98.8 Other specified disorders of the skin and subcutaneous tissue; Z92.25 Personal history of immunosuppression therapy; Z71.6 Tobacco abuse counseling; Z79.899 Other long term (current) drug therapy
CPT/HCPCS: 80053; 80061; 80069; 80076; 80197; 82570; 82607; 82728; 82746; 83036; 83540; 83550; 83615; 84156; 85025; 96413; 99215; A4222; J1303

== ENCOUNTER → 2025-08-30 12:31 | Outpatient (BNVA) | payer MEDICARE, MEDICAID, SELFPAY | PROVIDERS: PCP Nurse Practitioner Family; Visit Provider Nurse Practitioner Family | DX: L98.8 Other specified disorders of the skin and subcutaneous tissue (principal); M70.22 Olecranon bursitis, left elbow; L72.0 Epidermal cyst; L73.8 Other specified follicular disorders; L57.8 Other skin changes due to chronic exposure to nonionizing radiation; L82.1 Other seborrheic keratosis; Z94.0 Kidney transplant status; D48.5 Neoplasm of uncertain behavior of skin | CPT/HCPCS: 11102; 69100; 99202 ==

== ENCOUNTER 2025-09-13 10:04 | Oncology outpatient (recurring) (ONCR) | payer MEDICARE, MEDICAID, SELFPAY ==
[2025-09-13 10:46] LABS: Hematocrit 28.9 % (37-53); Hemoglobin 9.20 g/dL (11.27-16.99); Mean Corpuscular HGB Conc 31.8 g/dL (30-55); Mean Corpuscular Hemoglobin 29.9 pg (27-33); Mean Corpuscular Volume 93.8 fl (82-101); Nucleated Red Blood Cells % 0 %; Platelet Count 183 10^3/cmm (157-399); Red Blood Count 3.08 10^6/uL (3.85-5.65); White Blood Count 13.76 10^3/uL (3.29-11.43)
[2025-09-13 10:59] LABS: Alanine Aminotransferase 8 U/L (0-41); Albumin Level 3.3 g/dL (3.5-5.2); Alkaline Phosphatase 67 U/L (40-130); Anion Gap 16.1 (5-19); Aspartate Amino Transferase 14 U/L (0-40); Blood Urea Nitrogen 31 mg/dL (6-20); Calcium 8.5 mg/dL (8.5-10.5); Carbon Dioxide 20 mmol/L (22-29); Chloride 104 mmol/L (98-107); Globulin 2.0 g/dL (1.3-4.6); Glucose 299 mg/dL (65-115); Osmolality Calculated 298 mOsm/kg (285-295); Potassium 5.1 mmol/L (3.5-5.1); Sodium 135 mmol/L (136-145); Total Protein 5.3 g/dL (6.6-8.7)
[2025-09-13] MEDS: [UNRECOGNIZED DRUG - OTHER] IV (11:55)
[2025-09-13] MEDS: SODIUM CHLORIDE 0.9% IV (11:55)
[2025-09-13 12:34] VITALS: BP 170/75; PULSE 78; RESP 17; TEMP 36.8; O2SAT 95
== END 2025-09-13 23:59 | disposition home or self-care (01) ==
PROVIDERS: Nurse Practitioner Family; PCP Nurse Practitioner Family; Visit Provider Internal Medicine Medical Oncology
DX: M31.10 Thrombotic microangiopathy, unspecified (principal); F17.210 Nicotine dependence, cigarettes, uncomplicated; N18.6 End stage renal disease; N28.9 Disorder of kidney and ureter, unspecified; D64.9 Anemia, unspecified; Z94.0 Kidney transplant status; Z79.899 Other long term (current) drug therapy
CPT/HCPCS: 80053; 83615; 85025; 96413; 99214; A4222; J1303